=== PATIENT | female | born 1945 | race Caucasian/White ===

== ENCOUNTER 2021-08-23 14:43 | Emergency (ER) | payer MEDICARE, SELFPAY ==
--- NOTE | ~2021-08-23 | XR_ITS ---
EXAMINATION: [id number] INDICATION: Right rib pain after fall TECHNIQUE: A frontal view of the chest and 3 views of the right ribs were obtained. COMPARISON: 12/16/2019 FINDINGS: Chronic bilateral rib fractures are noted. The bones are osteopenic which limits sensitivit y for acute fracture. There is mild irregularity at the posterolateral aspects of the right fourth th rough sixth ribs. The lungs are free of acute opacities. There is no pleural effusion or pneumothorax . The heart size is normal. There is a moderate-sized hiatal hernia. Surgical clips in the right uppe r quadrant are likely from prior cholecystectomy. IMPRESSION: 1. Chronic bilateral rib fractures with possible acute fractures of the right fourth through sixth ri bs, sensitivity limited by osteopenia. Reviewed, dictated and finalized at location A. IMPRESSION: 1. Chronic bilateral rib fractures with possible acute fractures of the right f ourth through sixth ribs, sensitivity limited by osteopenia.
[2021-08-23 14:57] VITALS: BP 142/60; PULSE 66; RESP 20; TEMP 36.8; O2SAT 98
--- NOTE | 2021-08-23 15:13 | ED.FALL ---
HPI - Fall General Chief Complaint: Fall Stated Complaint: Fall Time Seen by Provider: 08/23/21 15:14 Source: patient, RN notes reviewed and old records reviewed Mode of arrival: ambulatory Limitations: no limitations History of Present Illness HPI Narrative: 76-year-old female who presents to [facility] with complaints of fall 9 days ago in her home hitting her right side on her dresser with pain to the right side of the chest and along lower rib area.Patient is on home oxygen therapy at 2-3L per nasal cannula and thinks she got her feet tangled in oxygen cord.Patient has history of osteoporosis and takes daily medication for disease process. She also has had prior fractures in her back she states and takes daily pain medication. Patient denies any increases in dyspnea, does have some faint crackles in lung bases, reports some increase in her pain to right rib area with deep breathing.Patient is using ice to area which she states helps her discomfort. Patient states that her pain is sharp rates pain 8/10. MD complaint: fall Onset (ago): day(s) (9) Related Data Home Medications Medication Instructions Recorded Confirmed albuterol sulfate 90 mcg INHALATION QID 12/16/19 08/23/21 dexlansoprazole [Dexilant] 60 mg PO DAILY 12/16/19 08/23/21 dicyclomine 20 mg PO QID 12/16/19 08/23/21 duloxetine 60 mg PO DAILY 12/16/19 08/23/21 lidocaine 3 patch TOPICAL DAILY 12/16/19 08/23/21 metoprolol tartrate 25 mg PO BID 12/16/19 08/23/21 promethazine 25 mg PO TID PRN 12/16/19 08/23/21 abaloparatide [Tymlos] 80 mcg SUBCUT DAILY 08/23/21 08/23/21 albuterol sulfate 2.5 mg CONTINUOUS NEBULIZATION Q4H 08/23/21 08/23/21 PRN carisoprodol 350 mg PO QID 08/23/21 08/23/21 cholecalciferol (vitamin D3) 50 mcg PO DAILY 08/23/21 08/23/21 ipratropium-albuterol 3 ml INHALATION Q4H PRN 08/23/21 08/23/21 lubiprostone [Amitiza] 24 mcg PO BID 08/23/21 08/23/21 oxycodone myristate [Xtampza ER] 108 mg PO Q12H 08/23/21 08/23/21 oxycodone-acetaminophen 2 tablet PO Q4H PRN 08/23/21 08/23/21 Allergies Allergy/AdvReac Type Severity Reaction Status Date / Time Penicillins Allergy Severe anaphylaxis Verified 08/23/21 15:17 Tetanus Vaccines and Toxoid Allergy Severe Unknown Unverified 08/23/21 15:17 pregabalin Allergy Intermediate Swelling Verified 08/23/21 15:17 Sulfa (Sulfonamide Allergy Intermediate Rash Verified 08/23/21 15:17 Antibiotics) ciprofloxacin Allergy Mild Rash Verified 08/23/21 15:17 doxycycline Allergy Mild Rash Verified 08/23/21 15:17 amitriptyline AdvReac Intermediate Hypertensio Verified 08/23/21 15:17 n nortriptyline AdvReac Intermediate Hypertensio Verified 08/23/21 15:17 n NSAIDS (Non-Steroidal AdvReac Intermediate Nausea and Verified 08/23/21 15:17 Anti-Inflamma Vomiting Review of Systems Review of Systems: CONSTITUTIONAL: Denies fever, chills, or sweats. EYES: Denies visual changes, redness, or discharge. ENT: Denies rhinorrhea, congestion, sore throat, or otalgia. CARDIOVASCULAR: Positive for right-sided pain chest pain,no palpitations, or edema. RESPIRATORY: Denies cough or acute dyspnea, reports increase pain with deep breathing. GASTROINTESTINAL: Denies abdominal pain, nausea, vomiting, or diarrhea. GENITOURINARY: Denies dysuria or hematuria. SKIN: Denies rash or itching. MUSCULOSKELETAL:Positive for chronic back pain, joint pain, or myalgia. NEUROLOGIC: Denies headache, numbness, or weakness. PSYCHIATRIC: Positive for history of anxiety or depression. All systems reviewed & are unremarkable except as noted in HPI and below PMFSH Past Medical History Medical History (Updated 08/25/21 @ 15:33 by Mercedes Chambers NP) Arthritis COPD (chronic obstructive pulmonary disease) Diabetes Fibromyalgia GERD (gastroesophageal reflux disease) Herniated disc Hypertension Kidney atrophy Migraines Osteopenia Pancreatitis Peripheral edema Peripheral neuropathy Surgical History Surgical History (Reviewed 08/23/21 @ 15:15
[2021-08-23 15:17] VITALS: BP 142/60; PULSE 66; RESP 20; TEMP 36.8; O2SAT 98
== END 2021-08-23 16:05 | disposition home or self-care (01) ==
PROVIDERS: Emergency Provider Registered Nurse; PCP Internal Medicine Geriatric Medicine
DX: S22.41XA Multiple fractures of ribs, right side, initial encounter for closed fracture (principal); W19.XXXA Unspecified fall, initial encounter; M19.90 Unspecified osteoarthritis, unspecified site; J44.9 Chronic obstructive pulmonary disease, unspecified; M79.7 Fibromyalgia; I10 Essential (primary) hypertension; E11.42 Type 2 diabetes mellitus with diabetic polyneuropathy; Z87.891 Personal history of nicotine dependence
CPT/HCPCS: 71101; 99213; G0463

== ENCOUNTER 2023-08-05 14:11 | Emergency (ER) | payer MEDICARE, MEDICAID, SELFPAY ==
[2023-08-05 14:24] VITALS: BP 121/46; PULSE 78; RESP 20; TEMP 37.1; O2SAT 98
--- NOTE | 2023-08-05 16:11 | ED.GENADULT ---
HPI - General Adult General Chief complaint: Skin/Abscess/Foreign Body Stated complaint: cat bite right forearm Source: patient Mode of arrival: ambulatory Limitations: no limitations History of Present Illness HPI narrative: Patient presents for evaluation of a cat bite to the right forearm. This occurred yesterday when her own cat bit her. She denies any fever, chills, nausea, vomiting, purulence from the affected area. She has some surrounding erythema. Reports minimal amount of pain present. She has multiple abx allergies and is also allergic to tetanus vaccine. She states she is borderline diabetic but BS are controlled with diet alone. She has an underlying history of COPD. She wears 3 L O2 per NC at home. Related Data Home Medications Medication Instructions Recorded Confirmed albuterol sulfate 90 mcg/actuation 90 mcg inhalation QID 12/16/19 08/05/23 breath activated powder inhaler,sensor dexlansoprazole 60 mg 60 mg PO DAILY 12/16/19 08/05/23 capsule,biphase delayed release (Dexilant) dicyclomine 20 mg tablet 20 mg PO QID 12/16/19 08/05/23 duloxetine 60 mg capsule,delayed 60 mg PO DAILY 12/16/19 08/05/23 release lidocaine 5 % topical patch 3 patch topical DAILY 12/16/19 08/05/23 metoprolol tartrate 25 mg tablet 25 mg PO BID 12/16/19 08/05/23 promethazine 25 mg tablet 25 mg PO TID PRN Nausea 12/16/19 08/05/23 abaloparatide (Tymlos) 80 mcg subcut DAILY 08/23/21 08/05/23 albuterol sulfate 2.5 mg/3 mL 2.5 mg continuous nebulization Q4H 08/23/21 08/05/23 (0.083 %) solution for nebulization PRN Shortness Of Breath Or Wheezing carisoprodol 350 mg tablet 350 mg PO QID 08/23/21 08/05/23 cholecalciferol (vitamin D3) 50 50 mcg PO DAILY 08/23/21 08/05/23 mcg (2,000 unit) capsule ipratropium 0.5 mg-albuterol 3 mg 3 ml inhalation Q4H PRN Shortness 08/23/21 08/05/23 (2.5 mg base)/3 mL nebulization Of Breath Or Wheezing soln lubiprostone 24 mcg capsule 24 mcg PO BID 08/23/21 08/05/23 (Amitiza) oxycodone myristate 36 mg capsule 108 mg PO Q12H 08/23/21 08/05/23 sprinkle extended release 12hr(DON'T CRUSH) (Xtampza ER) oxycodone-acetaminophen 10 mg-325 2 tablet PO Q4H PRN Pain 08/23/21 08/05/23 mg tablet Allergies Allergy/AdvReac Type Severity Reaction Status Date / Time Penicillins Allergy Severe anaphylaxis Verified 08/05/23 14:32 Tetanus Vaccines and Toxoid Allergy Severe Unknown Verified 08/05/23 14:32 pregabalin Allergy Intermediate Swelling Verified 08/05/23 14:32 Sulfa (Sulfonamide Allergy Intermediate Rash Verified 08/05/23 14:32 Antibiotics) ciprofloxacin Allergy Mild Rash Verified 08/05/23 14:32 pentoxifylline [From Trental] Allergy Unknown Verified 08/05/23 14:33 amitriptyline AdvReac Intermediate Hypertensio Verified 08/05/23 14:32 n nortriptyline AdvReac Intermediate Hypertensio Verified 08/05/23 14:32 n NSAIDS (Non-Steroidal AdvReac Intermediate Nausea and Verified 08/05/23 14:32 Anti-Inflamma Vomiting Review of Systems Review of Systems: CONSTITUTIONAL: Denies fever, chills, or sweats. EYES: Denies visual changes, redness, or discharge. ENT: Denies rhinorrhea, congestion, sore throat, or otalgia. CARDIOVASCULAR: Denies chest pain, palpitations, or edema. RESPIRATORY: Denies cough or dyspnea. GASTROINTESTINAL: Denies abdominal pain, nausea, vomiting, or diarrhea. GENITOURINARY: Denies dysuria or hematuria. SKIN: Reports cat bite to right forearm with surrounding redness. Denies rash or itching. MUSCULOSKELETAL: Denies back pain, joint pain, or myalgia. NEUROLOGIC: Denies headache, numbness, dizziness, or weakness. PSYCHIATRIC: Denies anxiety or depression. [facility] Past Medical History Medical History Arthritis COPD (chronic obstructive pulmonary disease) Diabetes Fibromyalgia GERD (gastroesophageal reflux disease) Herniated disc Hypertension Kidney atrophy Migraines Osteopenia Pancrea
== END 2023-08-05 16:15 | disposition home or self-care (01) ==
PROVIDERS: Emergency Provider Nurse Practitioner; PCP Internal Medicine Geriatric Medicine
DX: S51.851A Open bite of right forearm, initial encounter (principal); J44.9 Chronic obstructive pulmonary disease, unspecified; I10 Essential (primary) hypertension; Z87.891 Personal history of nicotine dependence; Z79.899 Other long term (current) drug therapy; Z79.891 Long term (current) use of opiate analgesic; W55.01XA Bitten by cat, initial encounter
CPT/HCPCS: 99213; G0463

== ENCOUNTER 2023-09-01 12:31 | Emergency (ER) | payer MEDICARE, SELFPAY ==
[2023-09-01 13:02] VITALS: BP 150/66; PULSE 72; RESP 18; TEMP 36.7; O2SAT 97
--- NOTE | 2023-09-01 13:50 | ED.GENADULT ---
HPI - General Adult General Chief complaint: Skin/Abscess/Foreign Body Stated complaint: cat bite right arm Source: patient Mode of arrival: ambulatory Limitations: no limitations History of Present Illness HPI narrative: Patient presents for evaluation of cat bites to bilateral forearms. Her cat bit her left and right arms yesterday. She now has redness surrounding the cat bites. She denies any fever, chills, nausea, vomiting, purulence from the affected puncture wounds. She is diabetic but states that she is controlled through diet alone. I saw her here last month for similar symptoms. She was treated with doxycycline and Flagyl as she has multiple drug allergies. She is not able to receive tetanus vaccine due to allergy. She is also concerned about 3 areas of redness and itching to the right upper arm that she believes are related to some type of insect bites. Related Data Home Medications Medication Instructions Recorded Confirmed albuterol sulfate 90 mcg/actuation 90 mcg inhalation QID 12/16/19 08/05/23 breath activated powder inhaler,sensor dicyclomine 20 mg tablet 20 mg PO QID 12/16/19 08/05/23 duloxetine 60 mg capsule,delayed 60 mg PO DAILY 12/16/19 08/05/23 release lidocaine 5 % topical patch 3 patch topical DAILY 12/16/19 08/05/23 metoprolol tartrate 25 mg tablet 25 mg PO BID 12/16/19 08/05/23 promethazine 25 mg tablet 25 mg PO TID PRN Nausea 12/16/19 08/05/23 abaloparatide (Tymlos) 80 mcg subcut DAILY 08/23/21 08/05/23 albuterol sulfate 2.5 mg/3 mL 2.5 mg continuous nebulization Q4H 08/23/21 08/05/23 (0.083 %) solution for nebulization PRN Shortness Of Breath Or Wheezing carisoprodol 350 mg tablet 350 mg PO QID 08/23/21 08/05/23 cholecalciferol (vitamin D3) 50 50 mcg PO DAILY 08/23/21 08/05/23 mcg (2,000 unit) capsule ipratropium 0.5 mg-albuterol 3 mg 3 ml inhalation Q4H PRN Shortness 08/23/21 08/05/23 (2.5 mg base)/3 mL nebulization Of Breath Or Wheezing soln lubiprostone 24 mcg capsule 24 mcg PO BID 08/23/21 08/05/23 (Amitiza) oxycodone myristate 36 mg capsule 108 mg PO Q12H 08/23/21 08/05/23 sprinkle extended release 12hr(DON'T CRUSH) (Xtampza ER) oxycodone-acetaminophen 10 mg-325 2 tablet PO Q4H PRN Pain 08/23/21 08/05/23 mg tablet abaloparatide (Tymlos) mcg subcut 09/01/23 abaloparatide (Tymlos) mcg subcut 09/01/23 cilostazol 50 mg tablet mg 09/01/23 clopidogrel 75 mg tablet mg 09/01/23 dexlansoprazole 60 mg mg 09/01/23 capsule,biphase delayed release (Dexilant) ergocalciferol (vitamin D2) 1,250 09/01/23 mcg (50,000 unit) capsule fluticasone fur. 100 mcg-umeclid inhalation 09/01/23 62.5 mcg-vilant 25 mcg inhalat.powder (Trelegy Ellipta) furosemide 20 mg tablet mg 09/01/23 isosorbide mononitrate 30 mg mg PO 09/01/23 tablet,extended release 24 hr nitroglycerin 0.4 mg sublingual mg 09/01/23 tablet oxycodone myristate 36 mg capsule mg 09/01/23 sprinkle extended release 12hr(DON'T CRUSH) (Xtampza ER) pantoprazole 40 mg tablet,delayed mg PO 09/01/23 release pentoxifylline 400 mg mg PO 09/01/23 tablet,extended release Allergies Allergy/AdvReac Type Severity Reaction Status Date / Time Penicillins Allergy Severe anaphylaxis Verified 09/01/23 12:55 Tetanus Vaccines and Toxoid Allergy Severe Unknown Verified 09/01/23 12:55 pregabalin Allergy Intermediate Swelling Verified 09/01/23 12:55 Sulfa (Sulfonamide Allergy Intermediate Rash Verified 09/01/23 12:55 Antibiotics) ciprofloxacin Allergy Mild Rash Verified 09/01/23 12:55 pentoxifylline [From Trental] Allergy Unknown Verified 09/01/23 12:55 amitriptyline AdvReac Intermediate Hypertensio Verified 09/01/23 12:55 n nortriptyline AdvReac Intermediate Hypertensio Verified 09/01/23 12:55 n NSAIDS (Non-Steroidal AdvReac Intermediate Nausea and Verified 09/01/23 12:55 Anti-Inflamma Vomiting Review of Systems Review of Systems: CONSTITUTIONAL: Denies fever, chills
== END 2023-09-01 13:55 | disposition home or self-care (01) ==
PROVIDERS: Emergency Provider Nurse Practitioner; PCP Internal Medicine Geriatric Medicine
DX: S51.832A Puncture wound without foreign body of left forearm, initial encounter (principal); S51.831A Puncture wound without foreign body of right forearm, initial encounter; W55.01XA Bitten by cat, initial encounter; L30.9 Dermatitis, unspecified; M19.90 Unspecified osteoarthritis, unspecified site; J44.9 Chronic obstructive pulmonary disease, unspecified; E11.42 Type 2 diabetes mellitus with diabetic polyneuropathy; K21.9 Gastro-esophageal reflux disease without esophagitis; I10 Essential (primary) hypertension; M85.80 Other specified disorders of bone density and structure, unspecified site; Z87.891 Personal history of nicotine dependence
CPT/HCPCS: 99213; G0463

== ENCOUNTER 2024-01-25 10:14 | Emergency (ER) | payer MEDICARE, MEDICAID, SELFPAY ==
[2024-01-25 10:25] VITALS: BP 140/55; PULSE 65; RESP 16; TEMP 37.1; O2SAT 100
--- NOTE | 2024-01-25 11:13 | ED.ANIMALBIT ---
HPI - Animal Bite General Chief Complaint: Animal Bite Stated Complaint: Cat Bite/Left Hand Time Seen by Provider: 01/25/24 11:13 Source: patient and RN notes reviewed Mode of arrival: ambulatory Limitations: dementia History of Present Illness HPI narrative: 78-year-old female presents with concern for cap bite to her left hand. Reports she was bit on Sunday. She reports purulent drainage, redness, swelling, tenderness to the dorsal hand. Denies decreased function of the hand. Denies general malaise or fever. MD complaint: animal bite Related Data Home Medications Medication Instructions Recorded Confirmed albuterol sulfate 90 mcg/actuation 90 mcg inhalation QID 12/16/19 01/25/24 breath activated powder inhaler,sensor dicyclomine 20 mg tablet 20 mg PO QID 12/16/19 01/25/24 duloxetine 60 mg capsule,delayed 60 mg PO DAILY 12/16/19 01/25/24 release lidocaine 5 % topical patch 3 patch topical DAILY 12/16/19 01/25/24 metoprolol tartrate 25 mg tablet 25 mg PO BID 12/16/19 01/25/24 promethazine 25 mg tablet 25 mg PO TID PRN Nausea 12/16/19 01/25/24 abaloparatide (Tymlos) 80 mcg subcut DAILY 08/23/21 01/25/24 albuterol sulfate 2.5 mg/3 mL 2.5 mg continuous nebulization Q4H 08/23/21 01/25/24 (0.083 %) solution for nebulization PRN Shortness Of Breath Or Wheezing carisoprodol 350 mg tablet 350 mg PO QID 08/23/21 01/25/24 cholecalciferol (vitamin D3) 50 50 mcg PO DAILY 08/23/21 01/25/24 mcg (2,000 unit) capsule ipratropium 0.5 mg-albuterol 3 mg 3 ml inhalation Q4H PRN Shortness 08/23/21 01/25/24 (2.5 mg base)/3 mL nebulization Of Breath Or Wheezing soln lubiprostone 24 mcg capsule 24 mcg PO BID 08/23/21 01/25/24 (Amitiza) oxycodone-acetaminophen 10 mg-325 See Rx Instructions .Route 08/23/21 01/25/24 mg tablet .COMPLEX PRN Pain cilostazol 50 mg tablet 50 mg PO DAILY 09/01/23 01/25/24 clopidogrel 75 mg tablet 75 mg PO DAILY 09/01/23 01/25/24 dexlansoprazole 60 mg 60 mg PO DAILY 09/01/23 01/25/24 capsule,biphase delayed release (Dexilant) fluticasone fur. 100 mcg-umeclid See Rx Instructions .Route .COMPLEX 09/01/23 01/25/24 62.5 mcg-vilant 25 mcg inhalat.powder (Trelegy Ellipta) furosemide 20 mg tablet 20 mg PO DAILY 09/01/23 01/25/24 isosorbide mononitrate 30 mg 30 mg PO DAILY 09/01/23 01/25/24 tablet,extended release 24 hr nitroglycerin 0.4 mg sublingual See Rx Instructions .Route .COMPLEX 09/01/23 01/25/24 tablet oxycodone myristate 36 mg capsule See Rx Instructions .Route .COMPLEX 09/01/23 01/25/24 sprinkle extended release 12hr(DON'T CRUSH) (Xtampza ER) pantoprazole 40 mg tablet,delayed 40 mg PO DAILY 09/01/23 01/25/24 release pentoxifylline 400 mg 400 mg PO DAILY 09/01/23 01/25/24 tablet,extended release Allergies Allergy/AdvReac Type Severity Reaction Status Date / Time Penicillins Allergy Severe anaphylaxis Verified 01/25/24 11:01 Tetanus Vaccines and Toxoid Allergy Severe Unknown Verified 01/25/24 11:01 pregabalin Allergy Intermediate Swelling Verified 01/25/24 11:01 Sulfa (Sulfonamide Allergy Intermediate Rash Verified 01/25/24 11:01 Antibiotics) ciprofloxacin Allergy Mild Rash Verified 01/25/24 11:01 pentoxifylline [From Trental] Allergy Unknown Verified 01/25/24 11:01 amitriptyline AdvReac Intermediate Hypertensio Verified 01/25/24 11:01 n nortriptyline AdvReac Intermediate Hypertensio Verified 01/25/24 11:01 n NSAIDS (Non-Steroidal AdvReac Intermediate Nausea and Verified 01/25/24 11:01 Anti-Inflamma Vomiting Review of Systems Review of Systems: CONSTITUTIONAL: Denies malaise, chills, sweats, or fever. SKIN: Reports redness, swelling, tenderness, purulent drainage to the dorsal left hand at the site of the cat bite. Denies vesicles, bullae, numbness, pain beyond proportion MUSCULOSKELETAL: Denies joint pain or myalgia. NEUROLOGIC: Denies headache. All systems reviewed & are unremarkable except as noted in HPI and below PMFSH Pas
== END 2024-01-25 11:30 | disposition home or self-care (01) ==
PROVIDERS: Emergency Provider Nurse Practitioner; PCP Internal Medicine Geriatric Medicine
DX: S61.402A Unspecified open wound of left hand, initial encounter (principal); W55.01XA Bitten by cat, initial encounter; Z87.891 Personal history of nicotine dependence; J44.9 Chronic obstructive pulmonary disease, unspecified; E11.42 Type 2 diabetes mellitus with diabetic polyneuropathy; M79.7 Fibromyalgia; K21.9 Gastro-esophageal reflux disease without esophagitis; I10 Essential (primary) hypertension; M85.80 Other specified disorders of bone density and structure, unspecified site; M19.90 Unspecified osteoarthritis, unspecified site
CPT/HCPCS: 99213; G0463

== ENCOUNTER 2024-03-03 13:51 | Emergency (ER) | payer MEDICARE, MEDICAID, SELFPAY ==
[2024-03-03 14:04] VITALS: BP 136/51; PULSE 103; RESP 20; TEMP 37.3; O2SAT 98
--- NOTE | 2024-03-03 14:10 | ED.ANIMALBIT ---
HPI - Animal Bite General Chief Complaint: Animal Bite Stated Complaint: Cat Bite/Right Hand Time Seen by Provider: 03/03/24 14:10 Source: patient, RN notes reviewed and old records reviewed Mode of arrival: ambulatory Limitations: no limitations History of Present Illness HPI narrative: 78 year old female presents to [facility] care with complaints of cat bite to her right hand that occurred yesterday evening. Patient reports that Cat's immunizations are up to date, is her pet cat which is a Siamese and is temperamental.Patient had previous cat bite on 01/25/2024 and did receive tetanus update at that time. Patient has 1.2 linear wound to dorsal aspect of right hand near upper thumb region with some mild redness around wound with no drainage. MD complaint: animal bite Onset (ago): day(s) (day 2 of symptoms) Animal: cat Description of animal: household pet Mechanism: bite Location: other (dorsal right hand) Severity scale (1-10): 3 Treatments prior to arrival: other (cleansed with soap and water) Related Data Home Medications Medication Instructions Recorded Confirmed albuterol sulfate 90 mcg/actuation 90 mcg inhalation QID 12/16/19 01/25/24 breath activated powder inhaler,sensor dicyclomine 20 mg tablet 20 mg PO QID 12/16/19 01/25/24 duloxetine 60 mg capsule,delayed 60 mg PO DAILY 12/16/19 01/25/24 release lidocaine 5 % topical patch 3 patch topical DAILY 12/16/19 01/25/24 metoprolol tartrate 25 mg tablet 25 mg PO BID 12/16/19 01/25/24 promethazine 25 mg tablet 25 mg PO TID PRN Nausea 12/16/19 01/25/24 abaloparatide (Tymlos) 80 mcg subcut DAILY 08/23/21 01/25/24 albuterol sulfate 2.5 mg/3 mL 2.5 mg continuous nebulization Q4H 08/23/21 01/25/24 (0.083 %) solution for nebulization PRN Shortness Of Breath Or Wheezing carisoprodol 350 mg tablet 350 mg PO QID 08/23/21 01/25/24 cholecalciferol (vitamin D3) 50 50 mcg PO DAILY 08/23/21 01/25/24 mcg (2,000 unit) capsule ipratropium 0.5 mg-albuterol 3 mg 3 ml inhalation Q4H PRN Shortness 08/23/21 01/25/24 (2.5 mg base)/3 mL nebulization Of Breath Or Wheezing soln lubiprostone 24 mcg capsule 24 mcg PO BID 08/23/21 01/25/24 (Amitiza) oxycodone-acetaminophen 10 mg-325 See Rx Instructions .Route 08/23/21 01/25/24 mg tablet .COMPLEX PRN Pain cilostazol 50 mg tablet 50 mg PO DAILY 09/01/23 01/25/24 clopidogrel 75 mg tablet 75 mg PO DAILY 09/01/23 01/25/24 dexlansoprazole 60 mg 60 mg PO DAILY 09/01/23 01/25/24 capsule,biphase delayed release (Dexilant) fluticasone fur. 100 mcg-umeclid See Rx Instructions .Route .COMPLEX 09/01/23 01/25/24 62.5 mcg-vilant 25 mcg inhalat.powder (Trelegy Ellipta) furosemide 20 mg tablet 20 mg PO DAILY 09/01/23 01/25/24 isosorbide mononitrate 30 mg 30 mg PO DAILY 09/01/23 01/25/24 tablet,extended release 24 hr nitroglycerin 0.4 mg sublingual See Rx Instructions .Route .COMPLEX 09/01/23 01/25/24 tablet oxycodone myristate 36 mg capsule See Rx Instructions .Route .COMPLEX 09/01/23 01/25/24 sprinkle extended release 12hr(DON'T CRUSH) (Xtampza ER) pantoprazole 40 mg tablet,delayed 40 mg PO DAILY 09/01/23 01/25/24 release pentoxifylline 400 mg 400 mg PO DAILY 09/01/23 01/25/24 tablet,extended release Allergies Allergy/AdvReac Type Severity Reaction Status Date / Time Penicillins Allergy Severe anaphylaxis Verified 01/25/24 11:01 Tetanus Vaccines and Toxoid Allergy Severe Unknown Verified 01/25/24 11:01 pregabalin Allergy Intermediate Swelling Verified 01/25/24 11:01 Sulfa (Sulfonamide Allergy Intermediate Rash Verified 01/25/24 11:01 Antibiotics) ciprofloxacin Allergy Mild Rash Verified 01/25/24 11:01 pentoxifylline [From Trental] Allergy Unknown Verified 01/25/24 11:01 amitriptyline AdvReac Intermediate Hypertensio Verified 01/25/24 11:01 n nortriptyline AdvReac Intermediate Hypertensio Verified 01/25/24 11:01 n NSAIDS (Non-Steroidal AdvReac Intermediate Nausea and Verified 01/25/24 11:01 Anti-Inflamma
== END 2024-03-03 14:48 | disposition home or self-care (01) ==
PROVIDERS: Emergency Provider Registered Nurse; PCP Internal Medicine Geriatric Medicine
DX: S61.451A Open bite of right hand, initial encounter (principal); W55.01XA Bitten by cat, initial encounter; Z87.891 Personal history of nicotine dependence; M19.90 Unspecified osteoarthritis, unspecified site; J44.9 Chronic obstructive pulmonary disease, unspecified; E11.9 Type 2 diabetes mellitus without complications; M79.7 Fibromyalgia; K21.9 Gastro-esophageal reflux disease without esophagitis; I10 Essential (primary) hypertension; M81.0 Age-related osteoporosis without current pathological fracture; G62.9 Polyneuropathy, unspecified
CPT/HCPCS: 99213; G0463

== ENCOUNTER 2024-03-11 12:57 | Emergency (ER) | payer MEDICARE, MEDICAID, SELFPAY ==
[2024-03-11 13:13] VITALS: BP 143/75; PULSE 87; RESP 20; TEMP 37.1; O2SAT 96
--- NOTE | 2024-03-11 13:26 | ED.ANIMALBIT ---
HPI - Animal Bite General Chief Complaint: Animal Bite Stated Complaint: Cat bite right leg lower Time Seen by Provider: 03/11/24 13:25 Source: patient, RN notes reviewed and old records reviewed Mode of arrival: ambulatory Limitations: no limitations History of Present Illness HPI narrative: 78 year old female accompanied by health care worker presents per wheelchair with complaints of cat bite to her right lower leg from her cat. Patient just had cat bite to her right hand 10 days ago and it has healed well. Patient has 1 small puncture wound to her right lower leg in calf area with scratch. Patient reports that she has decided to get rid of the cat since she has been biting her. Patient reports that she did have quite a bit of bleeding initially because she is on Plavix, no active bleeding noted at this time. Tetanus shot is up to date. MD complaint: animal bite (cat bite) Onset (ago): day(s) (today) Animal: cat Description of animal: household pet Location: other (right calf area) Severity scale (1-10): 6 Treatments prior to arrival: wound dressing(s) and other (cleansed wound with soap and water) Related Data Home Medications Medication Instructions Recorded Confirmed albuterol sulfate 90 mcg/actuation 90 mcg inhalation QID 12/16/19 03/11/24 breath activated powder inhaler,sensor dicyclomine 20 mg tablet 20 mg PO QID 12/16/19 03/11/24 lidocaine 5 % topical patch 3 patch topical DAILY 12/16/19 03/11/24 albuterol sulfate 2.5 mg/3 mL 2.5 mg continuous nebulization Q4H 08/23/21 03/11/24 (0.083 %) solution for nebulization PRN Shortness Of Breath Or Wheezing carisoprodol 350 mg tablet 350 mg PO QID 08/23/21 03/11/24 cholecalciferol (vitamin D3) 50 50 mcg PO DAILY 08/23/21 03/11/24 mcg (2,000 unit) capsule ipratropium 0.5 mg-albuterol 3 mg 3 ml inhalation Q4H PRN Shortness 08/23/21 03/11/24 (2.5 mg base)/3 mL nebulization Of Breath Or Wheezing soln lubiprostone 24 mcg capsule 24 mcg PO BID 08/23/21 03/11/24 (Amitiza) oxycodone-acetaminophen 10 mg-325 1 tablet PO QID PRN Pain 08/23/21 03/11/24 mg tablet cilostazol 50 mg tablet 50 mg PO DAILY 09/01/23 03/11/24 clopidogrel 75 mg tablet 75 mg PO DAILY 09/01/23 03/11/24 dexlansoprazole 60 mg 60 mg PO DAILY 09/01/23 03/11/24 capsule,biphase delayed release (Dexilant) fluticasone fur. 100 mcg-umeclid See Rx Instructions .Route .COMPLEX 09/01/23 03/11/24 62.5 mcg-vilant 25 mcg inhalat.powder (Trelegy Ellipta) furosemide 20 mg tablet 20 mg PO DAILY 09/01/23 03/11/24 nitroglycerin 0.4 mg sublingual See Rx Instructions .Route .COMPLEX 09/01/23 03/11/24 tablet oxycodone myristate 36 mg capsule 36 mg PO DAILY 09/01/23 03/11/24 sprinkle extended release 12hr(DON'T CRUSH) (Xtampza ER) abaloparatide (Tymlos) 80 mcg subcut MONTHLY 03/11/24 03/11/24 cyanocobalamin (vitamin B-12) 1,000 mcg IM MONTHLY 03/11/24 03/11/24 1,000 mcg/mL injection solution duloxetine 30 mg capsule,delayed 30 mg PO BID 03/11/24 03/11/24 release empagliflozin 10 mg tablet 10 mg PO DAILY 03/11/24 03/11/24 (Jardiance) Allergies Allergy/AdvReac Type Severity Reaction Status Date / Time Penicillins Allergy Severe anaphylaxis Verified 03/11/24 13:10 Tetanus Vaccines and Toxoid Allergy Severe Unknown Verified 03/11/24 13:10 pregabalin Allergy Intermediate Swelling Verified 03/11/24 13:10 Sulfa (Sulfonamide Allergy Intermediate Rash Verified 03/11/24 13:10 Antibiotics) ciprofloxacin Allergy Mild Rash Verified 03/11/24 13:10 pentoxifylline [From Trental] Allergy Unknown Verified 03/11/24 13:10 amitriptyline AdvReac Intermediate Hypertensio Verified 03/11/24 13:10 n nortriptyline AdvReac Intermediate Hypertensio Verified 03/11/24 13:10 n NSAIDS (Non-Steroidal AdvReac Intermediate Nausea and Verified 03/11/24 13:10 Anti-Inflamma Vomiting Review of Systems Review of Systems: CONSTITUTIONAL: Denies fever, chills, or sweats. CARDIOVASCULAR: Denies chest
[2024-03-11 13:29] VITALS: BP 143/75; PULSE 87; RESP 20; TEMP 37.1; O2SAT 96
== END 2024-03-11 13:55 | disposition home or self-care (01) ==
PROVIDERS: Emergency Provider Registered Nurse; PCP Internal Medicine Geriatric Medicine
DX: S81.831A Puncture wound without foreign body, right lower leg, initial encounter (principal); W55.01XA Bitten by cat, initial encounter; Z87.891 Personal history of nicotine dependence; M19.90 Unspecified osteoarthritis, unspecified site; J44.9 Chronic obstructive pulmonary disease, unspecified; E11.9 Type 2 diabetes mellitus without complications; M79.7 Fibromyalgia; K21.9 Gastro-esophageal reflux disease without esophagitis; I10 Essential (primary) hypertension; M85.80 Other specified disorders of bone density and structure, unspecified site; G62.9 Polyneuropathy, unspecified; Z79.01 Long term (current) use of anticoagulants
CPT/HCPCS: 99213; G0463

== ENCOUNTER 2024-04-04 13:22 | Emergency (ER) | payer MEDICARE, MEDICAID, SELFPAY ==
[2024-04-04 13:41] VITALS: BP 147/52; PULSE 72; RESP 18; TEMP 37.2; O2SAT 100
--- NOTE | 2024-04-04 14:01 | ED.WOUNDLAC ---
HPI - Wound/Laceration General Chief Complaint: Wound/Laceration Stated Complaint: Cat bite Time Seen by Provider: 04/04/24 13:55 Source: patient, RN notes reviewed and old records reviewed Mode of arrival: ambulatory Limitations: no limitations History of Present Illness HPI narrative: 78-year-old female who presents to [facility] accompanied by daughter with patient having cat bites to her right forearm X2 which happened last night around 2300. Patient has cleansed wounds with antibacterial soap and applied some triple antibiotic ointment and telfa dressing and coban wrap. Patient reports that this morning she noticed some yellowish drainage to the most distal puncture wound and some redness and heat to her arm. Patient has had multiple bites from this cat which is her personal cat and had stated that she was getting it a new home at last incident. Patient reports no fevers, chills or sweats. Onset (ago): day(s) (Last night around 2300) Location: other (right forearm) Patient tetanus UTD: Yes Treatments prior to arrival: other (wound cleansed and dressed) Related Data Home Medications Medication Instructions Recorded Confirmed albuterol sulfate 90 mcg/actuation 90 mcg inhalation QID 12/16/19 03/11/24 breath activated powder inhaler,sensor dicyclomine 20 mg tablet 20 mg PO QID 12/16/19 03/11/24 lidocaine 5 % topical patch 3 patch topical DAILY 12/16/19 03/11/24 albuterol sulfate 2.5 mg/3 mL 2.5 mg continuous nebulization Q4H 08/23/21 03/11/24 (0.083 %) solution for nebulization PRN Shortness Of Breath Or Wheezing carisoprodol 350 mg tablet 350 mg PO QID 08/23/21 03/11/24 cholecalciferol (vitamin D3) 50 50 mcg PO DAILY 08/23/21 03/11/24 mcg (2,000 unit) capsule ipratropium 0.5 mg-albuterol 3 mg 3 ml inhalation Q4H PRN Shortness 08/23/21 03/11/24 (2.5 mg base)/3 mL nebulization Of Breath Or Wheezing soln lubiprostone 24 mcg capsule 24 mcg PO BID 08/23/21 03/11/24 (Amitiza) cilostazol 50 mg tablet 50 mg PO DAILY 09/01/23 03/11/24 clopidogrel 75 mg tablet 75 mg PO DAILY 09/01/23 03/11/24 dexlansoprazole 60 mg 60 mg PO DAILY 09/01/23 03/11/24 capsule,biphase delayed release (Dexilant) fluticasone fur. 100 mcg-umeclid See Rx Instructions .Route .COMPLEX 09/01/23 03/11/24 62.5 mcg-vilant 25 mcg inhalat.powder (Trelegy Ellipta) nitroglycerin 0.4 mg sublingual See Rx Instructions .Route .COMPLEX 09/01/23 03/11/24 tablet oxycodone myristate 36 mg capsule 36 mg PO DAILY 09/01/23 03/11/24 sprinkle extended release 12hr(DON'T CRUSH) (Xtampza ER) abaloparatide (Tymlos) 80 mcg subcut MONTHLY 03/11/24 03/11/24 cyanocobalamin (vitamin B-12) 1,000 mcg IM MONTHLY 03/11/24 03/11/24 1,000 mcg/mL injection solution duloxetine 30 mg capsule,delayed 30 mg PO BID 03/11/24 03/11/24 release empagliflozin 10 mg tablet 10 mg PO DAILY 03/11/24 03/11/24 (Jardiance) Allergies Allergy/AdvReac Type Severity Reaction Status Date / Time Penicillins Allergy Severe anaphylaxis Verified 03/11/24 13:10 Tetanus Vaccines and Toxoid Allergy Severe Unknown Verified 03/11/24 13:10 pregabalin Allergy Intermediate Swelling Verified 03/11/24 13:10 Sulfa (Sulfonamide Allergy Intermediate Rash Verified 03/11/24 13:10 Antibiotics) ciprofloxacin Allergy Mild Rash Verified 03/11/24 13:10 pentoxifylline [From Trental] Allergy Unknown Verified 03/11/24 13:10 amitriptyline AdvReac Intermediate Hypertensio Verified 03/11/24 13:10 n nortriptyline AdvReac Intermediate Hypertensio Verified 03/11/24 13:10 n NSAIDS (Non-Steroidal AdvReac Intermediate Nausea and Verified 03/11/24 13:10 Anti-Inflamma Vomiting Review of Systems Review of Systems: CONSTITUTIONAL: Denies fever, chills, or sweats. CARDIOVASCULAR: Denies chest pain, palpitations, or edema. RESPIRATORY: Denies cough or dyspnea.is on home oxygen therapy GASTROINTESTINAL: Denies abdominal pain, nausea, vomiting SKIN: Reports redness and warmth to dista
== END 2024-04-04 14:23 | disposition home or self-care (01) ==
PROVIDERS: Emergency Provider Registered Nurse; PCP Internal Medicine Geriatric Medicine
DX: S51.831A Puncture wound without foreign body of right forearm, initial encounter (principal); W55.01XA Bitten by cat, initial encounter; Z87.891 Personal history of nicotine dependence; M19.90 Unspecified osteoarthritis, unspecified site; J44.9 Chronic obstructive pulmonary disease, unspecified; E11.42 Type 2 diabetes mellitus with diabetic polyneuropathy; M79.7 Fibromyalgia; K21.9 Gastro-esophageal reflux disease without esophagitis; M85.80 Other specified disorders of bone density and structure, unspecified site
CPT/HCPCS: 99213; G0463

== ENCOUNTER 2024-05-01 14:28 | Emergency (ER) | payer MEDICARE, MEDICAID, SELFPAY ==
[2024-05-01 14:42] VITALS: BP 117/59; PULSE 92; RESP 20; TEMP 37.2; O2SAT 96
--- NOTE | 2024-05-01 14:49 | ED.GENADULT ---
HPI - General Adult General Chief complaint: Back Pain/Injury Stated complaint: Back pain with open wound Time Seen by Provider: 05/01/24 14:52 Source: patient Mode of arrival: ambulatory Limitations: no limitations History of Present Illness HPI narrative: 78-year-old female with history of chronic back pain and COPD presented for complaint of an abrasion to the mid upper back sustained last night when she slid out of bed. She states she was sitting on the edge of the bed when her mattress shifted and she foot to the floor. She denies any neck pain. Patient presented with a caregiver who applied a dressing over the wound. Denies any other complaints or concerns at this time. Related Data Home Medications Medication Instructions Recorded Confirmed albuterol sulfate 90 mcg/actuation 90 mcg inhalation QID 12/16/19 05/01/24 breath activated powder inhaler,sensor dicyclomine 20 mg tablet 20 mg PO QID 12/16/19 05/01/24 lidocaine 5 % topical patch 3 patch topical DAILY 12/16/19 05/01/24 albuterol sulfate 2.5 mg/3 mL 2.5 mg continuous nebulization Q4H 08/23/21 05/01/24 (0.083 %) solution for nebulization PRN Shortness Of Breath Or Wheezing carisoprodol 350 mg tablet 350 mg PO QID 08/23/21 05/01/24 cholecalciferol (vitamin D3) 50 50 mcg PO DAILY 08/23/21 05/01/24 mcg (2,000 unit) capsule ipratropium 0.5 mg-albuterol 3 mg 3 ml inhalation Q4H PRN Shortness 08/23/21 05/01/24 (2.5 mg base)/3 mL nebulization Of Breath Or Wheezing soln lubiprostone 24 mcg capsule 24 mcg PO BID 08/23/21 05/01/24 (Amitiza) cilostazol 50 mg tablet 50 mg PO DAILY 09/01/23 05/01/24 clopidogrel 75 mg tablet 75 mg PO DAILY 09/01/23 05/01/24 dexlansoprazole 60 mg 60 mg PO DAILY 09/01/23 05/01/24 capsule,biphase delayed release (Dexilant) fluticasone fur. 100 mcg-umeclid See Rx Instructions .Route .COMPLEX 09/01/23 05/01/24 62.5 mcg-vilant 25 mcg inhalat.powder (Trelegy Ellipta) nitroglycerin 0.4 mg sublingual See Rx Instructions .Route .COMPLEX 09/01/23 05/01/24 tablet oxycodone myristate 36 mg capsule 36 mg PO DAILY 09/01/23 05/01/24 sprinkle extended release 12hr(DON'T CRUSH) (Xtampza ER) abaloparatide (Tymlos) 80 mcg subcut MONTHLY 03/11/24 05/01/24 cyanocobalamin (vitamin B-12) 1,000 mcg IM MONTHLY 03/11/24 05/01/24 1,000 mcg/mL injection solution duloxetine 30 mg capsule,delayed 30 mg PO BID 03/11/24 05/01/24 release empagliflozin 10 mg tablet 10 mg PO DAILY 03/11/24 05/01/24 (Jardiance) Allergies Allergy/AdvReac Type Severity Reaction Status Date / Time Penicillins Allergy Severe anaphylaxis Verified 05/01/24 14:58 Tetanus Vaccines and Toxoid Allergy Severe Unknown Verified 05/01/24 14:58 pregabalin Allergy Intermediate Swelling Verified 05/01/24 14:58 Sulfa (Sulfonamide Allergy Intermediate Rash Verified 05/01/24 14:58 Antibiotics) ciprofloxacin Allergy Mild Rash Verified 05/01/24 14:58 pentoxifylline [From Trental] Allergy Unknown Verified 05/01/24 14:58 amitriptyline AdvReac Intermediate Hypertensio Verified 05/01/24 14:58 n nortriptyline AdvReac Intermediate Hypertensio Verified 05/01/24 14:58 n NSAIDS (Non-Steroidal AdvReac Intermediate Nausea and Verified 05/01/24 14:58 Anti-Inflamma Vomiting Review of Systems Review of Systems: CONSTITUTIONAL: Denies body aches, fever, chills, or sweats. EYES: Denies visual changes, redness, or discharge. ENT: Denies rhinorrhea, congestion CARDIOVASCULAR: Denies chest pain, palpitations, or edema. RESPIRATORY: Denies cough or dyspnea. GASTROINTESTINAL: Denies abdominal pain, nausea, vomiting, or diarrhea. SKIN: reports skin abrasion to mid upper back MUSCULOSKELETAL: Denies back pain, joint pain, or myalgia. NEUROLOGIC: Denies headache, numbness, tingling, or weakness. [facility] Past Medical History Medical History Arthritis Cat bite Chronic back pain COPD (chronic obstr
== END 2024-05-01 15:07 | disposition home or self-care (01) ==
PROVIDERS: Emergency Provider Nurse Practitioner Family; PCP Internal Medicine Geriatric Medicine
DX: S20.419A Abrasion of unspecified back wall of thorax, initial encounter (principal); W06.XXXA Fall from bed, initial encounter; Z87.891 Personal history of nicotine dependence; J44.9 Chronic obstructive pulmonary disease, unspecified; E11.42 Type 2 diabetes mellitus with diabetic polyneuropathy; M79.7 Fibromyalgia; K21.9 Gastro-esophageal reflux disease without esophagitis; I10 Essential (primary) hypertension; M85.80 Other specified disorders of bone density and structure, unspecified site
CPT/HCPCS: 99212; G0463

== ENCOUNTER 2025-03-10 15:43 | Emergency (ER) | payer MEDICARE, MEDICAID, SELFPAY ==
[2025-03-10 15:49] VITALS: BP 149/50; PULSE 71; RESP 20; TEMP 36.6; O2SAT 98
--- NOTE | 2025-03-10 16:10 | ED.SKABFB ---
HPI - Skin/Abscess/Foreign Bdy General Chief complaint: Skin/Abscess/Foreign Body Stated complaint: bug bite Time Seen by Provider: 03/10/25 16:11 Source: patient, RN notes reviewed and old records reviewed Mode of arrival: wheelchair Limitations: no limitations History of Present Illness HPI narrative: 79 year old female who presents to [facility] care with complaints of tick bite to her left lower leg which occurred about 2 weeks ago.Patient's caregiver reports that she removed a tick from patient's left lower leg about 2 weeks ago and now patient has tender red area to the left lower outer leg. Patient has purplish red irregular circular area to left lower leg which is tender to palpation, area measures 3.5cm X 2.5cm. Area marked with skin marker. Patient reports that she had gone to shelters in area to get a new cat assumes that is where she encountered the tick. MD complaint: rash and other (tick bite) Onset (ago): week(s) (tick removed 2 weeks ago) Tetanus up to date: yes Severity scale (1-10): 5 Quality: aching Treatments prior to arrival: other (is on pain medication for chronic pain to back) Related Data Home Medications ?Medication ?Instructions ?Recorded ?Confirmed ?Last Taken ?Type albuterol sulfate 90 mcg/actuation 90 mcg inhalation QID 12/16/19 05/01/24 Unknown History breath activated powder inhaler,sensor dicyclomine 20 mg tablet 20 mg PO QID 12/16/19 05/01/24 Unknown History lidocaine 5 % topical patch 3 patch topical DAILY 12/16/19 05/01/24 Unknown History albuterol sulfate 2.5 mg/3 mL 2.5 mg continuous nebulization Q4H 08/23/21 05/01/24 Unknown History (0.083 %) solution for nebulization PRN Shortness Of Breath Or Wheezing carisoprodol 350 mg tablet 350 mg PO QID 08/23/21 05/01/24 Unknown History cholecalciferol (vitamin D3) 50 50 mcg PO DAILY 08/23/21 05/01/24 Unknown History mcg (2,000 unit) capsule cilostazol 50 mg tablet 50 mg PO DAILY 09/01/23 05/01/24 Unknown History clopidogrel 75 mg tablet 75 mg PO DAILY 09/01/23 05/01/24 Unknown History dexlansoprazole 60 mg 60 mg PO DAILY 09/01/23 05/01/24 Unknown History capsule,biphase delayed release (Dexilant) fluticasone fur. 100 mcg-umeclid See Rx Instructions .Route .COMPLEX 09/01/23 05/01/24 Unknown History 62.5 mcg-vilant 25 mcg inhalat.powder (Trelegy Ellipta) nitroglycerin 0.4 mg sublingual See Rx Instructions .Route .COMPLEX 09/01/23 05/01/24 Unknown History tablet oxycodone myristate 36 mg capsule 36 mg PO DAILY 09/01/23 05/01/24 Unknown History sprinkle extended release 12hr(DON'T CRUSH) (Xtampza ER) abaloparatide (Tymlos) 80 mcg subcut MONTHLY 03/11/24 05/01/24 Unknown History cyanocobalamin (vitamin B-12) 1,000 mcg IM MONTHLY 03/11/24 05/01/24 Unknown History 1,000 mcg/mL injection solution duloxetine 30 mg capsule,delayed 30 mg PO BID 03/11/24 05/01/24 Unknown History release empagliflozin 10 mg tablet 10 mg PO DAILY 03/11/24 05/01/24 Unknown History (Jardiance) Allergies Allergy/AdvReac Type Severity Reaction Status Date / Time Penicillins Allergy Severe anaphylaxis Verified 03/10/25 16:02 Tetanus Vaccines and Toxoid Allergy Severe Unknown Verified 03/10/25 16:02 pregabalin Allergy Intermediate Swelling Verified 03/10/25 16:02 Sulfa (Sulfonamide Allergy Intermediate Rash Verified 03/10/25 16:02 Antibiotics) ciprofloxacin Allergy Mild Rash Verified 03/10/25 16:02 atorvastatin (From Lipitor) Allergy Unknown Unknown Verified 03/10/25 16:02 gabapentin Allergy Unknown Unknown Verified 03/10/25 16:02 Horse/Equine Containing Allergy Unknown Unknown Verified 03/10/25 16:02 Products tetracycline Allergy Unknown Unknown Verified 03/10/25 16:02 tolterodine Allergy Unknown Unknown Verified 03/10/25 16:02 tuberculin, purified protein Allergy Unknown Unknown Verified 03/10/25 16:02 deriva pentoxifylline (From Trental) Allergy Unknown Verified 03/10/25 16:02 amitriptyline AdvReac Intermediate Hypertensio Verified 03/10/25 16:02 n nortriptyline AdvReac Intermediate Hypertensio Verified 03/10/25 16:02 n NSAIDS (Non-Steroidal AdvReac Intermediate Nausea and Verified 03/10/25 16:02 Anti-Inflamma Vomiting Review of Systems Review of Systems: CONSTITUTIONAL: Denies fever, chills, or sweats. CARDIOVASCULAR: Denies chest pain, palpitations, or edema. RESPIRATORY: Denies cough or dyspnea. SKIN: Reports painful red circular lesion on outer left leg from tick bite measures 3.5cm X2.5 cm MUSCULOSKELETAL: Denies joint pain or myalgia. NEUROLOGIC: Denies headache, numbness, or weakness. All systems reviewed & are unremarkable except as noted in HPI and below PMFSH Past Medical History Medical History Chronic back pain Cat bite Osteopenia Kidney atrophy Fibromyalgia Pancreatitis COPD (chronic obstructive pulmonary disease) Herniated disc GERD (gastroesophageal reflux disease) Peripheral edema Arthritis Diabetes Migraines Hypertension Peripheral neuropathy Surgical History Surgical History History of ERCP x2 Hx of tubal ligation History of cholecystectomy Family History Family History Father Family history non-contributory Social History Social History Smoking status: Former smoker Tobacco type: cigarettes Additional smoking assessment comments: Quit 2008 Alcohol intake: former Alcohol use details: social Substance use: current Other substance usage details: takes oxycodone for chronic back pain Additional living arrangements comments: with sister Occupation/Education: retired Gender identity (if verbalized by the patient): Female Comments At time of signature, agree with nursing past medical, surgical, social and family history. There is no relevant family history pertinent to the presenting complaint Exam Narrative: GENERAL:chronic ill -appearing, frail fair-nourished, and in no acute distress. HEAD: Normocephalic, atraumatic. EYES: PERRLA, conjunctivae clear, and EOMI. ENT: Mucous membranes moist. Oropharynx without edema, erythema or lesions. NECK: Supple. No lymphadenopathy CHEST: Decreased to auscultation. No respiratory distress.is on oxygen therapy at 2-3 Liters per nasal cannula SAO2 98% HEART: Regular rate and rhythm. SKIN: Warm, dry.? 3.5cm X 2.5cm red purplish irregular circular wound to the outer area of left leg tender to palpation, area marked with skin marker NEURO:? Alert and oriented x3. PSYCH: Normal mood and affect Course Course Emergency Course: Patient is aware of diagnosis, understands and agrees to treatment plan.? Anticipatory guidance given.? Patient agrees to follow-up as directed and is aware of reasons to seek care at the emergency department. Portions of this record may have been created with voice recognition software Level of Care: Express Care Visit Vital Signs Vital signs: Vital Signs Temperature 36.6 C 03/10/25 15:49 Pulse Rate 71 03/10/25 15:49 Respiratory Rate 20 03/10/25 15:49 Blood Pressure 149/50 H 03/10/25 15:49 Pulse Oximetry 98 03/10/25 15:49 Oxygen Delivery Room Air 03/10/25 15:49 Temperature 36.6 C 03/10/25 15:49 Pulse Rate 71 03/10/25 15:49 Respiratory Rate 20 03/10/25 15:49 Blood Pressure 149/50 H 03/10/25 15:49 Pulse Oximetry 98 03/10/25 15:49 Oxygen Delivery Room Air 03/10/25 15:49 Reviewed MDM - Skin/Abscess/Foreign Bdy MDM Narrative Medical decision making narrative: Does not appear at this time to be erythema multiforme, bullous, SJS, TEN; no evidence at this time to suggest RMSF, endocarditis or Lyme disease; patient looks well, nontoxic and is tolerating oral intake; no neurologic signs or symptoms; no headache, photophobia or neck pain; afebrile; appropriate for initial outpatient treatment; discussed the importance of follow-up, patient agrees; question, viral exanthema, contact dermatitis, allergic dermatitis, eczema, urticaria, [ xx ]. No soft palate or uvula edema, no tongue, lip edema or other mucosal involvement, no respiratory compromise, no stridor, no wheezing, no wheezing, no history of syncope, no hypotension, no nausea, vomiting, or diarrhea.? Instructed patient to go to nearest ER immediately for any worsening symptoms including but not limited to: fever, spreading rash, pain, sore throat, headache, dizziness, chest pain, trouble breathing, or any symptoms concerning to the patient. Differential Diagnosis Differential diagnosis: Likely cellulitis, insect bites, contact dermatitis and other (wound left lower leg, tick bite) Medical Records Attestation: I reviewed the patient's medical records. Critical Care Time Critical Care Time Critical Care Time: No Discharge Plan Discharge Clinical Impression: Tick bite Qualifiers: Encounter type: initial encounter Site of tick bite: lower leg Laterality: left Qualified Code(s): S80.862A - Insect bite (nonvenomous), left lower leg, initial encounter; W57.XXXA - Bitten or stung by nonvenomous insect and other nonvenomous arthropods, initial encounter Leg wound, left Qualifiers: Encounter type: initial encounter Qualified Code(s): S81.802A - Unspecified open wound, left lower leg, initial encounter Patient Disposition: Home Condition: Stable Instructions: Antibiotic Form, Tick Bite (ED) Additional Instructions: Keep area clean and may use mupirocin ointment to area watch for increasing infection--redness, swelling, drainage Tylenol for any fever pain follow up with PCP in 7-10 days for a wound check recheck if develop fever, chills, increasing symptom Go to the ER if your symptoms become worse of if ANY new symptoms develop Doxycycline 100 mg b.i.d. for 10 days If your symptoms persist, change or worsen significantly before you can contact your personal physician then please, without delay, go to the emergency department for further evaluation. Follow-up with PCP in 7-10 days or sooner if needed Follow up with PCP soon in regards to your blood pressure which is elevated above threshold for referral. Blood pressure above 120/80 may indicate pre-hypertension. 149/50 Patient Language: Maori Prescriptions: New doxycycline monohydrate 100 mg capsule 100 mg PO BID Qty: 20 0RF No Action cyanocobalamin (vitamin B-12) 1,000 mcg/mL solution 1,000 mcg IM MONTHLY duloxetine 30 mg capsule,delayed release(DR/EC) 30 mg PO BID Tymlos 80 mcg (3,120 mcg/1.56 mL) pen injector 80 mcg SUBCUT MONTHLY Jardiance 10 mg tablet 10 mg PO DAILY dicyclomine 20 mg Tablet 20 mg PO QID albuterol sulfate 90 mcg/actuation Aero Powdr Breath Act W/Sensor 90 mcg INHALATION QID lidocaine 5 % Adhesive Patch,Medicated 3 patch TOPICAL DAILY carisoprodol 350 mg tablet 350 mg PO QID cholecalciferol (vitamin D3) 50 mcg (2,000 unit) Capsule 50 mcg PO DAILY albuterol sulfate 2.5 mg /3 mL (0.083 %) solution for nebulization 2.5 mg continuous nebulization Q4H PRN (Reason: Shortness Of Breath Or Wheezing) cilostazol 50 mg tablet 50 mg PO DAILY clopidogrel 75 mg tablet 75 mg PO DAILY nitroglycerin 0.4 mg tablet, sublingual See Rx Instructions .ROUTE .COMPLEX Rx Instructions: see rx instructions dexlansoprazole [Dexilant] 60 mg capsule,biphase delayed releas 60 mg PO DAILY Xtampza ER 36 mg cap,sprinkl,ER12hr(DONT CRUSH) 36 mg PO DAILY Trelegy Ellipta 100-62.5-25 mcg blister with device See Rx Instructions .ROUTE .COMPLEX Rx Instructions: see rx instructions Follow-up/Referrals: Alec,MD Nishi [Primary Care Provider] - Time of Disposition: 16:30 Quality [place] Coma Scale Eyes: Open Verbal: Oriented and Alert Motor: Follows Commands [place] Coma Total Score: 15
--- OUTSIDE RECORDS SUMMARY | 2025-03-10 16:38 | XMS_ITS ---
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 Name Role Phone Tha Costa Unavailable Unavailab le Allergies and adverse reactions Code CodeSystem Substance Reaction Severity StartDate Concern Status Tuberculin Tests Moderate Unknown active 5339410 RXNORM Tetanus Immune Globulin Unknown 06/26/[address] Sulfa Antibiotics Unknown 06/26/2015 active 7984 RXNORM Penicillin Unknown 06/26/2015 active Pamelor Unknown 06/26/[address] NSAIDs Unknown 06/26/2015 active Neurontin Unknown 06/26/2015 active Lyrica Unknown 06/26/2015 active Care Team Name Role Address Phone Organization Dates Tha Costa PCP [address] [place] [address], [id number], [place] (Office): : : [facility] 06/26/2015 - 07/16/2015 Mental Status Section Date Assessment Total Score Description 07/16/2015 BIMS 15 cognitively int act PHQ-9 03 minimal depress ion 07/10/2015 BIMS 15 cognitively int act PHQ-9 07 mild depression Problems Problem # Description Date of onset Resolved Date Code CodeSystem Concern Status 1 DIFFICULTY IN WALKING, NOT ELSEWHERE CLASSIFIED 07/09/[address] active 2 HISTORY OF FALLING 07/09/[address] active 3 CHRONIC OBSTRUCTIVE PULMONARY DISEASE, UNSPECIFIED 06/27/[address] active 4 PAIN IN UNSPECIFIED JOINT 06/27/[address] active 5 UNSPECIFIED FRACTURE OF UNSPECIFIED FOREARM, INITIAL ENCOUNTER FOR CLOSED FRACTURE 06/27/[address] active 6 UNSPECIFIED FRACTURE OF UPPER END OF UNSPECIFIED HUMERUS, INITIAL ENCOUNTER FOR CLOSED FRACTURE 06/27/[address] active 7 ENCOUNTER FOR OTHER ORTHOPEDIC AFTERCARE 06/26/[address] active 8 ENCOUNTER FOR OTHER SPECIFIED AFTERCARE 06/26/[address] active 9 ESSENTIAL (PRIMARY) HYPERTENSION 06/26/[address] active 10 FRACTURE OF UNSPECIFIED METATARSAL BONE(S), UNSPECIFIED FOOT, INITIAL ENCOUNTER FOR CLOSED FRACTURE 06/26/[address] active 11 GASTRO-ESOPHAGEAL REFLUX DISEASE WITHOUT ESOPHAGITIS 06/26/[address] active 12 INSOMNIA, UNSPECIFIED 06/26/[address] active 13 MUSCLE WEAKNESS (GENERALIZED) 06/26/[address] active 14 OTHER CHRONIC PAIN 06/26/[address] active 15 UNSPECIFIED FRACTURE OF UNSPECIFIED FOOT, INITIAL ENCOUNTER FOR CLOSED FRACTURE 06/26/[address] active Reason for Referral No Reasons for Referral Entered Social History Social History Observation Description Start Date End Date Code Code System Current Smoking Status Tobacco smoking consumption unknown 161132385 SNOMED CT Sex Assigned At Female 1945 57368-5 [facility] Vital Signs Code Code System Vitals Name Values and Units Timing Information 78328-6 [facility] O2 % BldC Oximetry Value=92.0 Units= % 07/16/2015 86825-0 [facility] Pain Level Value=5.0 07/16/2015 9279-1 [facility] Respiratory Rate Value=20.0 Units=/m in 07/15/2015 8462-4 [facility] Blood Pressure-Diastolic Value=62 Un its=mmHg 07/15/2015 8480-6 [facility] Blood Pressure-Systolic Lfeal=630 Un its=mmHg 07/15/2015 8310-5 [facility] Body Temperature Value=98.0 Units= F 07/15/2015 8867-4 [facility] Heart rate Value=80.0 Units=/min 10491-7 [facility] Weight Ilvyb=623.0 Units=Lbs 8302-2 [facility] Height Value=4.0 Units=Inches 06/27/2015
--- OUTSIDE RECORDS SUMMARY | 2025-03-10 16:38 | XMS_ITS ---
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, KATHY Unavailable ALLERGIES Allergen (clinical drug ingredient) Drug/Non Drug Allergy documented on EMR Reaction Allergy Type Onset Date Status ibuprofen Ibuprofen ALL NSAIDS Drug Allergy Active pregabalin Lyrica Unknown Drug Allergy Active penicillin V Penicillin V Potassium Unknown Drug Allergy Active Sulfamethoxazole Unknown Drug Allergy Active horse skin extract Horse Epithelium HORSE SERUM Drug Allergy Active Elavil Unknown Drug Allergy Active gabapentin Gabapentin Unknown Drug Allergy Activ e REASON FOR VISIT recurrent abd pain MEDICATIONS Medication SIG (Take, Route, Frequency, Duration) Notes Start Date End Date Status Dicyclomine HCl 20 MG TAKE ONE TABLET BY MOUTH FOUR TIMES a DAY 30 for 30 Active Dexilant 60 MG TAKE ONE (1) CAPSULE BY MOUTH DAILY for 90 Active Vitamin B12 100 MCG as directed Orally Active Tymlos 3120 MCG/1.56ML as directed Subcutaneous Active Vitamin D3 4754263 UNIT/GM as directed Active Movantik 12.5 MG 1 tablet in the morning Orally Once a day for 30 day(s) 09/02/2020 Not-Taking MiraLax 17 GM 1 packet mixed with 8 ounces of fluid Orally Once a day for 30 day(s) 10/18/2020 Not-Taking OxyCONTIN 80 MG 1 tablet Orally ever y 12 hrs Not-Taking Furosemide 20 MG 1 tablet Orally twic e a week Not-Taking Metoclopramide HCl 5 MG as directed Orally Not-Taking Promethazine HCl 25 MG 1 tablet as neede d Orally every 12 hrs for 30 day(s) Active oxyCODONE-Acetaminophen 10-325 MG 1 tablet as needed Orally every 6 hrs Active Jublia 10 % 1 application to affected area Externally Once a day Not-Taking Linzess 290 MCG TAKE ONE CAPSULE BY MOUTH DAILY for 30 Not-Taking Alendronate Sodium 70 MG 1 tablet Orally for 30 day(s) Not-Taking Metoprolol Tartrate 25 MG 1 tablet with food Orally Twice a day for 30 day(s) Active Faqcoxabplw-Ureugqrpi-Kcaw nt 100-62.5-25 MCG/INH 1 puff Inhalation Once a day Active Lidocaine 5 % 1 patch to skin carly ve after 12 hours Externally Once a day Active Carisoprodol 350 MG 1 tablet as needed Orally Four times a day Active DULoxetine HCl 60 MG 1 capsule Orally On ce a day for 30 day(s) Active Ketoconazole 2 % as directed Externally Active Cholecalciferol 50 MCG (2000 UT) 1 capsule Orally Once a day Active Abaloparatide 3120 MCG/1.56ML as directed Subcutaneous Active Amitiza 24 MCG 1 capsule with food Orally Twice a day for 30 day(s) Active Acetaminophen 325 MG 1 tablet as needed Orally every 4 hrs Active Senna Plus 8.6-50 MG 1 tablet in the evening as needed Orally Once a day Active ProAir HFA 108 (90 Base) MCG/ACT 1 puff as needed Inhalation every 4 hrs Active SOCIAL HISTORY Tobacco Use: Social History Observation Description Date Details (start date - stop date) Former Smoker NA - NA Sex Assigned At : Social History Observation Description Sex Assigned At Unknown Tobacco Use/Smoking Question Answer Notes Are you a former smoker How long has it been since y ou last smoked? 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 More than 50% spent reviewing diagnostic results, compliance with current medical therapy, counseling patient on low fat diet, weight reduction to normal BMI, normal BMI discussed, avoidance of ETOH/tobacco products, discussing treatment options. Have discussed details of EUS and/or ERCP procedure including indications/risk s/expected outcomes/limitat ions/possible medication side effects, and alternatives to procedure. Instructed patient regarding management plan, follow-up visits, and stressed importance of compliance with plan. PLAN OF TREATMENT Treatment Notes Assessment Notes Right upper quadrant pain discussed possible ERCP but informed her that due to her current status that it may be more detrimental due to her comorbidities. Script for 0..5mg lorazepam PRN #10 0 refill given at this time as this provides relief Anemia, unspecified recommended to follo w her GI regarding possible colon/EGD as well as continued monitoring Other Time spent: 25minute s. More than 50% spent reviewing diagnostic results, compliance with current medical therapy, counseling patient on low fat diet, weight reduction to normal BMI, normal BMI discussed, avoidance of ETOH/tobacco products, discussing treatment options. Have discussed details of EUS and/or ERCP procedure including indications/risks/expected outcomes/limitations/possible medication side effects, and alternatives to procedure. Instructed patient regarding management plan, follow-up visits, and stressed importance of compliance with plan. Next Appt Details Follow Up: prn, Reason: Progress Notes * Shannon NINO ADOB:[birth year] (78 yo F)Acc No.[id number]:05/26/2024 Progress Notes Patient: Shannon NINO Appointment Provider: Kathy Morales CNP :1945 Age:78 Y Sex:Female Date:05/26/2024 [id number] Pcp:Nishi Michael MD Subjective: * Chief Complaints: * 1. Recurrent abd pain. * HPI: Abdominal pain: 78 year old female presents with c/o Abdominal pain. c/o The pain began many years ago.. c/o The pain is located in the right upper quadrant . c/o The pain daily, frequent, mostly a constant dull ache, but can have periods of very sharp pain. Increasing the dicyclomine has helped and feels the pain isn't as bad as it has been in the past. . c/o Aggravating factors include almost anything, worse with eating. c/o Alleviating factors include Better with B entyl 20 mg TID-QID. On chronic narcotics. She has been seeing pain management for years. She was sent to another pain management to discuss placement of a pain pump, but she was told she was not a good candidate.. c/o Associated factors include occasional nausea, c hronic constipation on chronic narcotics. Has tried Tried Amitiza and Linzess 145 mcg, Miralax. Taking quite a bit of Senokots and only having maybe once bowel movement per week. Tried the Linzess 290 mcg dose w/out relief. . c/o Medication(s) for abdominal pain include As previously noted Bentyl, Amitiza and Senokot. Also taking Dexilant 60 mg daily. . c/o Prior testing include Has had ERCP twice 1999 and 2010. Attempted to schedule an EUS, but felt to be high risk pulmonary jeter therefore not done. Patient reportedly d/w her mailer again recently, but reportedly expressed concern and feels she is too high risk for procedures. Patient reports mailer advised she has a 30-40% risk of having an adverse complication with anesthesia. . The severity of the pain is varied in severity. A CT (computed tomography) scan of the abdomen 05/12/19 fairly extensive fecal material in colon. Underdistention of sigmoid, possibly some mural thickening of sigmoid vs underdistention. Possible colitis, possibly infectious, inflammatory of ischemic. Intra and extrahepatic biliary ductal dilatation with pneumobilia, which was present previously. Atrophic changes of pancreas, as previously. Underdistention of stomach, changes of gastritis difficult to exclude. Prominent LN in left inguinal region, not evident previously. . Overall condition is variable. Notes she has lost about 20-22 lb. At last visit 06/2020 reported that her?weight was 118 lb. Now states ~120 lb. A t OV 05/2019 her weight was 141 lb. S he is not h ungry, but admits she has been struggling with some d epression as well. She feels her symptoms are stable at this time. . UPDATE 08/09/21 P resents today for her annual follow up. States that she is doing well on Bentyl and was denied Amitza for her constipation. She takes colace and senekot as needed to help. States that the samples of Amitza worked well for her. No complaints of nausea, vomiting. P resented CT scan after she left stating that she had lost weight. Last weight that was recorded her was in 2018 which she was 141, she is [address] scan showed suboptimal exam due to paucity of intra-abdominal and intrapelvic fat. N o evidence of bowel obstruction, mild mucosal thickening of the descending colon and sigmoid colon, which may be related to underdistention versus mild colitis of infectious or inflammatory etiology. mild focal mucosal thickening involving the gastric body along with suggestion of mild gastritis fold thickening and findings may related to under-distention peristalsis. Moderate amount of retained fecal debris in colon, re-demonstration of intrahepatic and extrahepatic pneumobillia along with intrahepatic and extrahepatic biliary ductal dilation with the CBD measuring up to 1.5cm which is similar to prior study. 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 - UPDATE 06/30/22 P resents today for complaints of increasing right upper quadrant pain, nausea and vomiting. She states that she has had increasing pain for the last couple months and presented to [facility] ED in January were she was admitted for 4 days for being jaundiced as well as abdominal pain. She states that she had followed up with a GI dr from there but states that nothing was followed up on. She states that she is having constant abdominal pain rated at an 8/10 that can increase to a 10/10 with eating and even when she moves. She states that she is just laying in bed all day as she is in horrible pain all day. She has complaints of nausea and vomiting and will force herself to eat at times. She states that she has seen her PCP recently as was referred to Palliative Care for pain management. She has yet to see them. P revious testin lfts normal CT scan showed marked extrahepatic biliary dilation and mild intrahepatic dilation. Pneumobilia. No obstructing mass or stone identified at the distal common bile duct. 1x2cm pancreatic neck cystic abnormality, which may be sequelae of pancreatitis given that it appears new since May 2021. - UPDATE 11/09/22 P resents today via telemed for follow up of her ERCP and EUS. ERCP was completed on 07/05/[address] Akers that showed papillary stenosis treated with extension of previous (1999) biliary/pancreatic sphincterotomies, dual duct stenting was performed and removed on 07/07/22 and excellent drainage was noted. EUS was completed on 09/[address] Gillespie showed the pancreatic duct had a dilated endosonographic appearance in the main PD. A cystic lesion was seen in the genu of the pancreas. Tissue showed no malignancy. The endosonographic appearance is suspicious for a branched intraductal papillary mucinous neoplasm vs pseudocyst, favor IPMN. There was dilation in the CBD and in the GB which measured up to 16mm due to papillary stenosis. She states that she is still having a sharp stabbing paint that will come on. States that the dicyclomine does not help. She was sent home with PRN lorazepam and will take that which does help with the pain. She does note that her complaints are a little better after her procedure were she is able to tolerate pain. She is doing well eating a low fat diet as well - UPDATE 12/28/22 P resents today via telemed with complaints of anemia. She was seen to have radial fracture and was seen to have a decreased hemoglobin in October. Fecal blood was negative. She has had repeat blood work since, still with decreased H&Hs. She never received any transfusion within that time. She was started on iron infusions, she received her first one yesterday. She is to have three with repeat labs completed at the end of this month. She states that she is fatigued but feeling a little better since infusion. No reports of melena. P revious testin H&H 8.6/27.4, H&H 7.7/25.3 H&H 10.1/32.3 - UPDATE 05/26/24 Valorie gill presents today with complaints of RUQ pain for the past few weeks. She presented to [facility] ED on 05/22/24 with complaints in which blood work was completed that showed mild anemia and normal LFTs, amylase. She did not have a CT scan as labs were normal and she informed the staff that her pain would resolve with a dose of lorazepam.. She was given a dose and her pain resolved. She states that she has a pressure in her RUQ at times and that she is unsure if the dicyclomine helps. She does admit that she was given doxycycline for a cat scratch not too long ago and shortly she began having complaints. She was seeing GI in [place] as she was referred for her anemia for colon/EGD and she states that she has yet to have completed. She states that she is eating well and has no complaints of nausea/vomiting. 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 MRCP showed mild intrahepatic and moderate extrahepatic biliary dilation slightly increased compared to prior exam. 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 Underlying pneumobilia is again noted. * ROS: Gastrointestinal: Admits Abdominal pain. Denies Blood in stool. Denies Change in bowel habits. Denies Colitis, denies. Denies Constipation. Denies Decreased appetite. Denies Diarrhea. Denies Difficulty swallowing. Denies Exposure to hepatitis. Denies Heartburn. Denies Hematemesis. Denies Hepatitis, denies. Denies Nausea. Denies Rectal bleeding. Denies Stomach problems, denies. Denies Vomiting. Denies Weight loss. * Medical History: GERD, Biliary dyskinesia, SOD/papillary stenosis s/p ERCP 1999, 2010, Acute pancreatitis, Chronic abdominal pain, Fibromyalgia, Migraines, COPD on continuous supplemental oxygen via NC, Arthritis, Type 2 diabetes, Gastroparesis, DJD, Cholelithiasis, Neuropathy, Hx colon polyps, Right renal atrophy, CHF, Pulmonary nodule, Opioid induced constipation. * Surgical History: EGD/Colonoscopy Federico 2012 , ERCP Aliperti 03/13/11 pancreatic papillary stenosis s/p pancreatic sphincterotomy after extension of previous biliary sphincterotomy, dual duct protective stenting. Stents removed 03/15/11. , ERCP 02/03/2000 Aliperti biliary stenosis s/p biliary sphincterotomy. , EGD 1994 , Colonoscopy 2004 , Tubal ligation 1989 , Appendectomy/open cholecystectomy 1989 , Exploratory lap 1975 , Colonoscopy reportedly 2016 w/polyps , ERCP Aliperti- ext of previous sphincterotomies, dual stenting performed and removed on 07/0707/05/22. * Family History: Father: , cancer, arthritis. Mother: , cancer, arthritis, diagnosed with Disease of gallbladder, unspecified. 2 living sisters hx HTN and DM; 1 living child and 1 . * Social History: Tobacco Use: Tobacco Use/Smoking Are you a former smoker, How long has it been since you last smoked? > 10 years, Additional Findings: Tobacco Non-User Ex-moderate cigarette smoker (10-19/day). * Medications: Taking Vitamin D3 8208930 UNIT/GM Liquid as directed , Taking Vitamin B12 100 MCG Tablet as directed Orally , Taking Tymlos 3120 MCG/1.56ML Solution Pen-injector as directed Subcutaneous , Taking Senna Plus 8.6-50 MG Tablet 1 tablet in the evening as needed Orally Once a day , Taking ProAir HFA 108 (90 Base) MCG/ACT Aerosol Solution 1 puff as needed Inhalation every 4 hrs , Taking Ketoconazole 2 % Shampoo as directed Externally , Taking Cholecalciferol 50 MCG (2000 UT) Capsule 1 capsule Orally Once a day , Taking Acetaminophen 325 MG Tablet 1 tablet as needed Orally every 4 hrs , Taking Abaloparatide 3120 MCG/1.56ML Solution Pen-injector as directed Subcutaneous , Taking Amitiza 24 MCG Capsule 1 capsule with food Orally Twice a day , Taking Carisoprodol 350 MG Tablet 1 tablet as needed Orally Four times a day , Taking DULoxetine HCl 60 MG Capsule Delayed Release Particles 1 capsule Orally Once a day , Taking Thbnyafyamo-Wuhvtmxfi-Uwghyw 100-62.5-25 MCG/INH Aerosol Powder Breath Activated 1 puff Inhalation Once a day , Taking Lidocaine 5 % Patch 1 patch to skin remove after 12 hours Externally Once a day , Taking Metoprolol Tartrate 25 MG Tablet 1 tablet with food Orally Twice a day , Taking oxyCODONE-Acetaminophen 10-325 MG Tablet 1 tablet as needed Orally every 6 hrs , Taking Promethazine HCl 25 MG Tablet 1 tablet as needed Orally every 12 hrs , Taking Dicyclomine HCl 20 MG Tablet TAKE ONE TABLET BY MOUTH FOUR TIMES a DAY 30 , Taking Dexilant 60 MG Capsule Delayed Release TAKE ONE (1) CAPSULE BY MOUTH DAILY , Not-Taking Linzess 290 MCG Capsule TAKE ONE CAPSULE BY MOUTH DAILY , Not-Taking Alendronate Sodium 70 MG Tablet 1 tablet Orally , Not-Taking Jublia 10 % Solution 1 application to affected area Externally Once a day , Not-Taking Metoclopramide HCl 5 MG Tablet as directed Orally , Not-Taking OxyCONTIN 80 MG Tablet ER 12 Hour Abuse-Deterrent 1 tablet Orally every 12 hrs , Not- Taking Furosemide 20 MG Tablet 1 tablet Orally twice a week , Not-Taking Movantik 12.5 MG Tablet 1 tablet in the morning Orally Once a day , Not-Taking MiraLax 17 GM Packet 1 packet mixed with 8 ounces of fluid Orally Once a day * Allergies: Penicillin V Potassium, Sulfamethoxazole, Elavil, Lyrica, Ibuprofen: ALL NSAIDS, Horse Epithelium: HORSE SERUM, Gabapentin. Objective: * Vitals: HR:76/min, BP:130/73mm Hg, Wt:115lbs, BMI: 24.03 Index, Ht: 58 in, Ht-cm: 147.32 cm, Wt-k.16 kg did not weigh as she was not ayad to get out of chair. 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 HEART: no murmurs, regular rate and rhythm, S1, S2 normal. LUNGS: decreased on 3L NC. ABDOMEN: normal, bowel sounds present, soft, nontender, nondistended. NEUROLOGIC: alert and oriented, sensory exam intact. Assessment: * Assessment: 1. Right upper quadrant pain - R10.11 (Primary) 2. 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 Anemia, unspecified - D64.9 Plan: * Treatment: 2. Anemia, unspecified Notes: recommended to follow her GI regarding possible colon/EGD as well as continued monitoring 3. Others Notes: Time spent: 25minutes. More than 50% spent reviewing diagnostic results, compliance with current medical therapy, counseling patient on low fat diet, weight reduction to normal BMI, normal BMI discussed, avoidance of ETOH/tobacco products, discussing treatment options. Have discussed details of EUS and/or ERCP procedure including indications/risks/expected outcomes/limitations/possible medication side effects, and alternatives to procedure. Instructed patient regarding management plan, follow-up visits, and stressed importance of compliance with plan. * Follow Up: prn * Images: * Sign off status: Completed true * Appointment Provider: Kathy Morales CNP Date: 05/26/2024 History and Physical Notes * HPI (History of Present Illness) Category Sub-Category Detail Notes Category Not es Abdominal pain The pain began many years ago. -UPDATE 08/09/21 Presents today for her annual follow up. States that she is doing well on Bentyl and was denied Amitza for her constipation. She takes colace and senekot as needed to help. States that the samples of Amitza worked well for her. No complaints of nausea, vomiting. Presented CT scan after she left stating that she had lost weight. Last weight that was recorded her was in 2019 which she was 141, she is [address] scan showed suboptimal exam due to paucity of intra-abdominal and intrapelvic fat. No evidence of bowel obstruction, mild mucosal thickening of the descending colon and sigmoid colon, which may be related to underdistention versus mild colitis of infectious or inflammatory etiology. mild focal mucosal thickening involving the gastric body along with suggestion of mild gastritis fold thickening and findings may related to under-distention peristalsis. Moderate amount of retained fecal debris in colon, re-demonstration of intrahepatic and extrahepatic pneumobillia along with intrahepatic and extrahepatic biliary ductal dilation with the CBD measuring up to 1.5cm which is similar to prior study. 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 -UPDATE 06/30/22 -------- Presents today for complaints of increasing right upper quadrant pain, nausea and vomiting. She states that she has had increasing pain for the last couple months and presented to [facility] ED in January were she was admitted for 4 days for being jaundiced as well as abdominal pain. She states that she had followed up with a GI dr from there but states that nothing was followed up on. She states that she is having constant abdominal pain rated at an 8/10 that can increase to a 10/10 with eating and even when she moves. She states that she is just laying in bed all day as she is in horrible pain all day. She has complaints of nausea and vomiting and will force herself to eat at times. She states that she has seen her PCP recently as was referred to Palliative Care for pain management. She has yet to see them. Previous testin06/13/22 lfts normal 02/01/22 CT scan showed marked extrahepatic biliary dilation and mild intrahepatic dilation. Pneumobilia. No obstructing mass or stone identified at the distal common bile duct. 1x2cm pancreatic neck cystic abnormality, which may be sequelae of pancreatitis given that it appears new since May 2021. UPDATE 11/09/22 Presents today via telemed for follow up of her ERCP and EUS. ERCP was completed on 07/05/[address] Akers that showed papillary stenosis treated with extension of previous (1999) biliary/pancreatic sphincterotomies, dual duct stenting was performed and removed on 07/07/22 and excellent drainage was noted. EUS was completed on 09/[address] Gillespie showed the pancreatic duct had a dilated endosonographic appearance in the main PD. A cystic lesion was seen in the genu of the pancreas. Tissue showed no malignancy. The endosonographic appearance is suspicious for a branched intraductal papillary mucinous neoplasm vs pseudocyst, favor IPMN. There was dilation in the CBD and in the GB which measured up to 16mm due to papillary stenosis. She states that she is still having a sharp stabbing paint that will come on. States that the dicyclomine does not help. She was sent home with PRN lorazepam and will take that which does help with the pain. She does note that her complaints are a little better after her procedure were she is able to tolerate pain. She is doing well eating a low fat diet as well UPDATE 12/28/22 Presents today via telemed with complaints of anemia. She was seen to have radial fracture and was seen to have a decreased hemoglobin in October. Fecal blood was negative. She has had repeat blood work since, still with decreased H&Hs. She never received any transfusion within that time. She was started on iron infusions, she received her first one yesterday. She is to have three with repeat labs completed at the end of this month. She states that she is fatigued but feeling a little better since infusion. No reports of melena. Previous testin12/03/22 H&H 8.6/27.4, 12/04/22 H&H 7.7/25.3 12/05/22 H&H 10.1/32.3 UPDATE 05/26/24 -- Shannon presents today with complaints of RUQ pain for the past few weeks. She presented to [facility] ED on 05/22/24 with complaints in which blood work was completed that showed mild anemia and normal LFTs, amylase. She did not have a CT scan as labs were normal and she informed the staff that her pain would resolve with a dose of lorazepam.. She was given a dose and her pain resolved. She states that she has a pressure in her RUQ at times and that she is unsure if the dicyclomine helps. She does admit that she was given doxycycline for a cat scratch not too long ago and shortly she began having complaints. She was seeing GI in [place] as she was referred for her anemia for colon/EGD and she states that she has yet to have completed. She states that she is eating well and has no complaints of nausea/vomiting. 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 MRCP showed mild intrahepatic and moderate extrahepatic biliary dilation slightly increased compared to prior exam. 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 Underlying pneumobilia is again noted. The pain is located in the right upper q uadrant The pain daily, frequent, mos tly a constant dull ache, but can have periods of very sharp pain. Increasing the dicyclomine has helped and feels the pain isn't as bad as it has been in the past. The severity of the pain is varied in se verity Aggravating factors include almost anyth ing, worse with eating Alleviating factors include Better with Bentyl 20 mg TID-QID. On chronic narcotics. She has been seeing pain management for years. She was sent to another pain management to discuss placement of a pain pump, but she was told she was not a good candidate. Associated factors include occasional na usea, chronic constipation on chronic narcotics. Has tried Tried Amitiza and Linzess 145 mcg, Miralax. Taking quite a bit of Senokots and only having maybe once bowel movement per week. Tried the Linzess 290 mcg dose w/out relief. Medication(s) for abdominal pain include As previously noted Bentyl, Amitiza and Senokot. Also taking Dexilant 60 mg daily. Prior testing include Has had ERCP twice 1999 and 2010. Attempted to schedule an EUS, but felt to be high risk pulmonary jeter therefore not done. Patient reportedly d/w her mailer again recently, but reportedly expressed concern and feels she is too high risk for procedures. Patient reports mailer advised she has a 30-40% risk of having an adverse complication with anesthesia. A CT (computed tomography) s can of the abdomen 05/12/19 fairly extensive fecal material in colon. Underdistention of sigmoid, possibly some mural thickening of sigmoid vs underdistention. Possible colitis, possibly infectious, inflammatory of ischemic. Intra and extrahepatic biliary ductal dilatation with pneumobilia, which was present previously. Atrophic changes of pancreas, as previously. Underdistention of stomach, changes of gastritis difficult to exclude. Prominent LN in left inguinal region, not evident previously. Overall condition is variable. Notes s he has lost about 20-22 lb. At last visit 06/2020 reported that her weight was 118 lb. Now states ~120 lb. At OV 05/2019 her weight was 141 lb. She is not hungry, but admits she has been struggling with some depression as well. She feels her symptoms are stable at this time. 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
--- OUTSIDE RECORDS SUMMARY | 2025-03-10 16:38 | XMS_ITS | Encounter Summary ---
Author Organization [facility] Address [address] [place] [address] Phone Care Team Providers Care Poultry Process Worker Name Role Phone Nishi Michael MD Primary Care Provider Mark Tolliver MD Unavailable Ceasar Yang MD Unavailable Ave Collado MD Unavailable Tyshawn Ulloa MD Unavailable Alli Caballero MD Unavailable Maikel Mckeon MD Unavailable Rosie Velasquez MD Unavailable John Pete MD Unavailable [phone] Yuri Akers MD Unavailable Olivia Romano LPN Unavailable Olivia Romano LPN Unavailable [phone] Olivia Romano LPN Unavailable [phone] Blaze Fernando MD Unavailable Deshaun Xavier MD Unavailable Dylan Gillespie MD Unavailable Michael Ramsey MD Unavailable [phone] Yoly Ramirez MD Unavailable Filipe Monsalve DPM Unavailable [phone] Lina Nataliya TUB ATTENDANT Unavailable Unavaila ble Encounter Details Date Type Department Care Team (Late st Contact Info) Description 08/23/2021 Orders Only [facility] [address] [place] [address] Nishi Michael MD [address] [place] [address] Social History Tobacco Use Types Packs/Day Years Used Date Smoking Tobacco: Former Smokeless Tobacco: Former Comments:Smoking History Pac ks/day: 1 Packs Alcohol Use Standard Drinks/Week Comments No 0 (1 standard drink = 0.6 oz pur e alcohol) PHQ-2 Answer Date Recorded PHQ-2 Total Score (If total score is 3 or more points, staff should administer the PHQ-9) 0 09/14/2020 Comments No Sex and Gender Information Value Date Recorded Sex Assigned at Not on file Legal Sex Female 8:25 AM DIRECTOR OF PROCUREMENT Gender Identity Not on file Sexual Orientation Not on file Occupation Industry Job Start Date Job End Date retired Not on file Not on file Not on file documented as of this encounter Plan of Treatment Not on file documented as of this encounter Procedures Procedure Name Priority Date/Time Associated Diagnosis Comments SCAN - RADIOLOGY/IMAGING 08/23/2021 documented in this encounter Results * SCAN - RADIOLOGY/IMAGING (08/23/2021) Anatomical Region Laterality Modality Other us Nishi Michael MD Final Resu lt documented in this encounter Visit Diagnoses Not on filedocumented in this encounter Additional Health Concerns Infection Onset Date Last Indicated Resolved Time COVID: Suspected 12/03/2022 12/03/2022 12/03/2022 1:09 PM DIRECTOR OF PROCUREMENT COVID: Suspected 02/02/2023 02/02/2023 02/02/2023 8:56 AM DIRECTOR OF PROCUREMENT COVID19 Comment:Patient has documented SpO2 < 94% which required additional supplemental oxygen > 24 hours and is not immunosuppressed. Based on a S&S onset date of 01/23/23 plus the need for additional supplemental oxygen this patient is first eligible for COVID: Recovered evaluation on 02/08/23. MIRIAN Torres 02/02/2023 02/02/202301/25 3:05 AM CDT COVID: Recovered Comment:Added based on recent COVID infection. 02/16/2023 02/21/2023 05/17/2023 3:05 AM C DT Exposure, COVID-19 Comment:Airborne + Contact precautions. Gown, Gloves, N95, eye protection or goggles. Precautions 07/26/23. Contact Field Service Analyst if patient worsens. ALICIA Hamilton 07/17/23 07/16/2023 07/17/2023 07/26/2023 3:05 AM C DT documented as of this encounter Care Teams Poultry Process Worker Relationship Specialty Start Date End Date Nishi Michael MD PCP - General 02/23/17 [place] [address] [place] [address] Physical Medicine and Rehabilitation 09/07/17 [place] [address] [address] [place] [address] Coffee Maker 09/07/17 [place] [address] [address] [place] [address] Nephrology 09/07/17 10/15/24 [place] [address] [address] [facility] [address] [place] [address] Pulmonary Disease 09/07/17 03/13/23 [place] [address] [place] [address] Gastroenterology 09/07/17 12/17/22 Maikel Mckeon MD [address] [place] [address] [place] [address] Referring Physician Ophthalmology 03/11/18 Rosie Velasquez MD [address] [place] [address] Consulting Physician Cardiology 05/25/20 John Pete MD [address] [place] [address] Consulting Physician Gastroenterology 02/01/22 08/29/23 Yuri Akers MD [address] [facility] [address] [place] [address] Consulting Physician Gastroenterology 07/07/22 Olivia Romano LPN [address] [facility] [address] [place] [address] ACO Care Pile Fabric Knitter 07/14/22 08/28/22 Olivia Romano LPN [address] [facility] [address] [place] [address] ACO Care Pile Fabric Knitter 09/14/22 10/10/22 Olivia Romano LPN [address] [facility] [address] [place] [address] ACO Care Pile Fabric Knitter 09/14/22 09/14/22 Blaze Fernando MD [address] [facility] [facility] [address] [place] [address] Surgeon Orthopedic Surgery 12/06/22 Deshaun Xavier MD [address] [facility] [place] [address] Consulting Physician Pulmonary Disease 03/14/23 Dylan Gillespie MD [address] [facility] [address] [place], [place] [id number] Consulting Physician Gastroenterology 06/14/23 Michael Ramsey MD [address] [facility] [address] [place] [address] Consulting Physician Cardiology 07/12/23 10/15/24 Yoly Ramirez MD [address] [facility] [place] [address] Consulting Physician Gastroenterology 08/30/23 Filipe Monsalve DPM [address] [place] [address] Consulting Physician Orthotics 04/09/24 Nataliya Mills LCSW Water Pumping Station Engineer 10/17/24 11/23/24 documented as of this encounter
--- OUTSIDE RECORDS SUMMARY | 2025-03-10 16:38 | XMS_ITS | Encounter Summary ---
Author Organization [facility] Healthcare Address [address] [place] [address] Care Team Providers Care Lay Ups Assembler Name Role Phone Nishi Michael MD Primary Care Provider + [phone] Mark Tolliver MD Unavailable [phone] Ceasar Yang MD Unavailable [phone] Ave Collado MD Unavailable [phone] Tyshawn Ulloa MD Unavailable [phone] Alli Caballero MD Unavailable [phone] Maikel Mckeon MD Unavailable [phone] Rosie Velasquez MD Unavailable [phone] John Pete MD Unavailable [phone] Yuri Akers MD Unavailable [phone] Olivia Romano LPN Unavailable [phone] Olivia Romano LPN Unavailable [phone] Olivia Romano LPN Unavailable [phone] Blaze Fernando MD Unavailable [phone] Deshaun Xavier MD Unavailable Dylan Gillespie MD Unavailable [phone] Michael Ramsey MD Unavailable [phone] Yoly Ramirez MD Unavailable Filipe Monsalve DPM Unavailable [phone] Nataliya MillsW Unavailable Unavaila ble Encounter Details Date Type Department Care Team (Late st Contact Info) Description 06/30/2020 Telephone [facility] [address] [place] [address] Reginald Ibarra, RT Social History Tobacco Use Types Packs/Day Years Used Date Smoking Tobacco: Former Smokeless Tobacco: Former Comments:Smoking History Pac ks/day: 1 Packs Alcohol Use Standard Drinks/Week Comments No 0 (1 standard drink = 0.6 oz pur e alcohol) PHQ-2 Answer Date Recorded PHQ-2 Score 0 08/05/2019 Comments No Sex and Gender Information Value Date Recorded Sex Assigned at Not on file Legal Sex Female 8:25 AM LEAN CONSULTANT Gender Identity Not on file Sexual Orientation Not on file Occupation Industry Job Start Date Job End Date retired Not on file Not on file Not on file documented as of this encounter Plan of Treatment Not on file documented as of this encounter Visit Diagnoses Not on filedocumented in this encounter Additional Health Concerns Infection Onset Date Last Indicated Resolved Time COVID: Suspected 09/20/2020 09/20/2020 09/21/2020 6:36 AM CDT Respiratory Infection (ASUNCION), contact + droplet Comment:Automatically added due to negative COVID-19 result. 09/21/2020 09/21/2020 10/05/2020 3:0 5 AM LEAN CONSULTANT COVID: Suspected 12/03/2022 12/03/2022 12/03/2022 1:09 PM LEAN CONSULTANT COVID: Suspected 02/02/2023 02/02/2023 02/02/2023 8:56 AM LEAN CONSULTANT COVID19 Comment:Patient has documented SpO2 < 94% [...] eye protection or goggles. Precautions 07/26/23. Contact Helpdesk Analyst if patient worsens. ALICIA Hamilton 07/17/23 07/16/2023 07/17/2023 07/26/2023 3:05 AM C DT documented as of this encounter Care Teams Lay Ups Assembler Relationship Specialty Start Date End Date Nishi Michael MD PCP - General 02/23/17 [place] [address] [facility] [address] [place] [address] Physical Medicine and Rehabilitation 09/07/17 [place] [address] [facility] 4 [place] [address] Litigator 09/07/17 [place] [address] [facility] [address] [place] [address] Nephrology 09/07/17 10/15/24 [place] [address] [facility] [address] [place] [address] Pulmonary Disease 09/07/17 03/13/23 [place] [address] [place] [address] Gastroenterology 09/07/17 12/17/22 Maikel Mckeon MD [address] [place] [address] [address] [place] [address] Referring Physician Ophthalmology 03/11/18 Rosie Velasquez MD [address] [place] [address] Consulting Physician Cardiology 05/25/20 John Pete MD [address] [place] [address] Consulting Physician Gastroenterology 02/01/22 08/29/23 Yuri Akers MD [address] [facility] [address] [place] [address] Consulting Physician Gastroenterology 07/07/22 Olivia Romano LPN [address] [place] [address] [address] [place] [address] ACO Care Parachute Line Tier 07/14/22 08/28/22 Olivia Romano LPN [address] [place] [address] [address] [place] [address] ACO Care Parachute Line Tier 09/14/22 10/10/22 Olivia Romano LPN [address] [place] [address] [facility] [address] [place] [address] ACO Care Parachute Line Tier 09/14/22 09/14/22 Blaze Fernando MD [address] [place] [address] DR MAKAYLA Freeman [facility] [address] [place] [address] Surgeon Orthopedic Surgery 12/06/22 Deshaun Xavier MD [address] [place] [address] [address] [place] [address] Consulting Physician Pulmonary Disease 03/14/23 Dylan Gillespie MD [address] [place] [address] Consulting Physician Gastroenterology 06/14/23 Michael Ramsey MD [address] [place] [address] Consulting Physician Cardiology 07/12/23 10/15/24 Yoly Ramirez MD [address] [place] [address] [address] [place] [address] Consulting Physician Gastroenterology 08/30/23 Filipe Monsalve DPM [address] [place] [address] Consulting Physician Orthotics 04/09/24 Nataliya Mills LCSW [employer] And Co Founder 10/17/24 11/23/24 documented as of this encounter
--- OUTSIDE RECORDS SUMMARY | 2025-03-10 16:38 | XMS_ITS ---
Author Organization [facility] Care Team Providers Care Client Technologies Specialist Name Role Phone Nishant Alex Unavailable Unavailable DevoraheRina Unavailable Unavailable Jack Ramsay Unavailable Unavailable Allergies and adverse reactions Code CodeSystem Substance Reaction Severity StartDate Concern Status tubercullin Unknown 04/07/2023 active 63573 RXNORM Tetracycline Skin reaction - finding (code- 900760172, SNOMED CT) Unknown 09/13/2022 active Tetanus Toxoids Unknown 09/13/2022 activ e 0221660 RXNORM Tetanus Immune Globulin Unknown 09/13/2022 active 9524 RXNORM sulfaSALAzine [place] on syndrome (code- 78850559, SNOMED CT) Unknown 09/13/2022 active 82557 RXNORM Sulfanilamide Unknown 09/13/2022 active 73602 RXNORM Sulfamethoxazole Unknown 09/13/[address]i [address] 970[address]694 SN[address]ED [address] Sulfa Antibiotics Skin react ion - finding (code- 278099187, SNOMED CT) Unknown 09/13/2022 active 226384 RXNORM Pregabalin Lung finding (code- 384615412, SNOMED CT) Unknown 09/13/2022 active 7984 RXNORM Penicillin Anaphylaxis (code- 66725503, SNOMED CT) Unknown 09/13/[address] NSAIDs Anaphylaxis (code- 55705529, SNOMED CT) Unknown 09/13/2022 active 7531 RXNORM Nortriptyline Unknown 09/13/2022 active 5666 RXNORM Immune Globulin Unknown 09/13/2022 activ e 5640 RXNORM Ibuprofen Unknown 09/13/2022 active Horse-derived Products Unknown 09/13/2022 active 31646 RXNORM Gabapentin Unknown 09/13/2022 active 2551 RXNORM Ciprofloxacin Skin reaction - finding (code- 076498508, SNOMED CT) Unknown 09/13/2022 active Amitriptyline Unknown 09/13/2022 active Care Team Name Role Address Phone Organization Dates Nishant Alex PCP [address] [place], [address], [place]Office[place] : : [facility] 04/08/2023 - 06/03/2023 Reina Fairchild Attending Physician [address] [place], [address], [place]Office[place] : [facility] [place] 04/08/2023 - 06/03/2023 Jack Ramsay Attending Physician [address], [phone], [place] (Office): [facility] 04/08/2023 - 06/03/2023 Immunizations Immunization Status Vaccine Details Vaccine Code CodeSystem Date Notes TB 2 Step Mantoux Skin Test cancelled tuberculin skin test; unspecified formulation 98 CVX created date: 09/15/2022 consent date: 09/15/2022 Pneumovax (PCV 13)(95477) completed pneumococcal conjugate vaccine, 13 valent lotNumber: [id number] expiry: 11/25/2023 Mfg: [employer]. Given 0.5 ml Left Deltoid intramuscularly 133 CVX created date: 09/15/2022 consent date: 09/15/2022 administere d date: 09/18/2022 Afluria (Influenza vaccine) Q2035 completed Influenza, split virus, quadrivalent, injectable, preservative free 150 CVX created date: 09/20/2022 administere d date: 09/07/2022 SARS-COV-2 Bivalent Booster- [facility] new SARS-COV-2 (COVID-19) vaccine, mRNA, spike protein, LNP, bivalent, preservative free, 30 mcg/0.3 mL dose, delano-sucrose formulation 300 CVX created date: 04/27/2023 consent date: 04/27/2023 Mental Status Section Date Assessment Total Score Description 06/03/2023 BIMS 15 cognitively int act CAM 0 No delirium ind icated PHQ-9 00 04/13/2023 BIMS 15 cognitively int act CAM 0 No delirium ind icated PHQ-9 06 mild depression Problems Problem # Description Date of onset Resolved Date Code CodeSystem Concern Status 1 DEPRESSION, UNSPECIFIED 05/11/[address] active 2 ACUTE ON CHRONIC DIASTOLIC (CONGESTIVE) HEART FAILURE 04/09/[address] active 3 CHRONIC OBSTRUCTIVE PULMONARY DISEASE, UNSPECIFIED 04/09/[address] active 4 VITAMIN D DEFICIENCY, UNSPECIFIED 04/09/[address] active 5 AGE-RELATED OSTEOPOROSIS WITHOUT CURRENT PATHOLOGICAL FRACTURE 04/07/[address] active 6 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 04/07/[address] active 7 CHRONIC PAIN SYNDROME 04/07/[address] active 8 CHRONIC RESPIRATORY FAILURE WITH HYPOXIA 04/07/[address] active 9 DIFFICULTY IN WALKING, NOT ELSEWHERE CLASSIFIED 04/07/[address] active 10 DYSPHAGIA, ORAL PHASE 04/07/[address] active 11 ENCOUNTER FOR OTHER ORTHOPEDIC AFTERCARE 04/07/[address] active 12 ESSENTIAL (PRIMARY) HYPERTENSION 04/07/[address] active 13 EXOCRINE PANCREATIC INSUFFICIENCY 04/07/[address] active 14 FRACTURE OF UNSPECIFIED PART OF NECK OF LEFT FEMUR, SUBSEQUENT ENCOUNTER FOR CLOSED FRACTURE WITH ROUTINE HEALING 04/07/[address] active 15 GASTRO-ESOPHAGEAL REFLUX DISEASE WITH ESOPHAGITIS, WITHOUT BLEEDING 04/07/[address] active 16 HISTORY OF FALLING 04/07/[address] active 17 HYPO-OSMOLALITY AND HYPONATREMIA 04/07/[address] active 18 INSOMNIA, UNSPECIFIED 04/07/[address] active 19 IRON DEFICIENCY ANEMIA, UNSPECIFIED 04/07/[address] active 20 INTERPRETATIVE DANCER (CURRENT) USE OF OPIATE ANALGESIC 04/07/[address] active 21 LYMPHEDEMA, NOT ELSEWHERE CLASSIFIED 04/07/[address] active 22 MIXED HYPERLIPIDEMIA 04/07/[address] active 23 NEED FOR ASSISTANCE WITH PERSONAL CARE 04/07/[address] active 24 PAROXYSMAL ATRIAL FIBRILLATION 04/07/[address] active 25 PERIPHERAL VASCULAR DISEASE, UNSPECIFIED 04/07/[address] active 26 PERSONAL HISTORY OF COLONIC POLYPS 04/07/[address] active 27 PERSONAL HISTORY OF TRANSIENT ISCHEMIC ATTACK (TIA), AND CEREBRAL INFARCTION WITHOUT RESIDUAL DEFICITS 04/07/[address] active 28 AGE-RELATED OSTEOPOROSIS WITHOUT CURRENT PATHOLOGICAL FRACTURE 09/13/20 22 04/09/[address] completed 29 CHRONIC DIASTOLIC (CONGESTIVE) HEART FAILURE 09/13/20 22 04/09/[address] completed 30 CHRONIC KIDNEY DISEASE, UNSPECIFIED 09/13/20 22 04/09/[address] completed 31 CHRONIC OBSTRUCTIVE PULMONARY DISEASE, UNSPECIFIED 09/13/20 22 04/09/[address] completed 32 CHRONIC PAIN SYNDROME 09/13/20 22 04/09/[address] completed 33 CHRONIC RESPIRATORY FAILURE WITH HYPOXIA 09/13/20 22 04/09/[address] completed 34 DEPENDENCE ON SUPPLEMENTAL OXYGEN 09/13/20 22 04/09/[address] completed 35 DEPRESSION, UNSPECIFIED 09/13/20 22 04/09/[address] completed 36 DIFFICULTY IN WALKING, NOT ELSEWHERE CLASSIFIED 09/13/20 22 04/09/[address] completed 37 FIBROMYALGIA 09/13/20 22 04/09/[address] completed 38 GASTRO-ESOPHAGEAL REFLUX DISEASE WITHOUT ESOPHAGITIS 09/13/20 22 04/09/[address] completed 39 HISTORY OF FALLING 09/13/20 22 04/09/[address] completed 40 INSOMNIA DUE TO MEDICAL CONDITION 09/13/20 22 04/09/[address] completed 41 LOW BACK PAIN, UNSPECIFIED 09/13/20 22 04/09/[address] completed 42 MIXED HYPERLIPIDEMIA 09/13/20 22 04/09/[address] completed 43 MODERATE PROTEIN-CALORIE MALNUTRITION 09/13/2004/09/[address] completed 44 MUSCLE WEAKNESS (GENERALIZED) 09/13/2004/09/[address] completed 45 NEED FOR ASSISTANCE WITH PERSONAL CARE 09/13/2004/09/[address] completed 46 OTHER IRON DEFICIENCY ANEMIAS 09/13/2004/09/[address] completed 47 OTHER SPECIFIED DISEASES OF PANCREAS 09/13/2004/09/[address] completed 48 OTHER SPECIFIED DISORDERS OF BONE DENSITY AND STRUCTURE, UNSPECIFIED SITE 09/13/2004/09/[address] completed 49 PAROXYSMAL ATRIAL FIBRILLATION 09/13/20 22 04/09/[address] completed 50 PERIPHERAL VASCULAR DISEASE, UNSPECIFIED 09/13/2004/09/[address] completed 51 PERSONAL HISTORY OF TRANSIENT ISCHEMIC ATTACK (TIA), AND CEREBRAL INFARCTION WITHOUT RESIDUAL DEFICITS 09/13/20 22 04/09/[address] completed 52 PRIMARY GENERALIZED (OSTEO)ARTHRITIS 09/13/20 22 04/09/[address] completed 53 RHABDOMYOLYSIS 09/13/2004/09/[address] completed 54 TYPE 2 DIABETES MELLITUS WITH DIABETIC POLYNEUROPATHY 09/13/20 22 04/09/[address] completed 55 UNSPECIFIED OSTEOARTHRITIS, UNSPECIFIED SITE 09/13/20 22 09/13/[address] completed 56 VITAMIN D DEFICIENCY, UNSPECIFIED 09/13/20 22 04/09/[address] completed Reason for Referral No Reasons for Referral Entered Social History Social History Observation Description Start Date End Date Code Code System Current Smoking Status Tobacco smoking consumption unknown 162329145 SNOMED CT Sex Assigned At Female 1945 35490-1 [facility] Vital Signs Code Code System Vitals Name Values and Units Timing Information 82333-6 [facility] Pain Level Value=0.0 06/03/2023 29515-2 [facility] Weight Zskho=102.8 Units=Lbs 9279-1 [facility] Respiratory Rate Value=18.0 Units=/m in 04/17/2023 8462-4 [facility] Blood Pressure-Diastolic Value=68 Un its=mmHg 04/17/2023 8480-6 [facility] Blood Pressure-Systolic Yuhmw=232 Un its=mmHg 04/17/2023 8310-5 [facility] Body Temperature Value=97.5 Units= F 04/17/2023 8867-4 [facility] Heart rate Value=76.0 Units=/min 32914-9 [facility] O2 % BldC Oximetry Value=95.0 Units= % 04/17/2023 8302-2 [facility] Height Value=51.0 Units=Inches 04/08/2023
--- OUTSIDE RECORDS SUMMARY | 2025-03-10 16:39 | XMS_ITS | Clinical Summary ---
Author Organization [facility] Address [address] [place] [address] Phone Care Team Providers Care Warp Dresser Name Role Phone Nishi Michael MD Primary Care Provider [phone] Allergies Active Allergy Reactions Criticality Noted Date Comments Nsaids (Non-Steroidal Anti-I nflammatory Drug) Anaphylaxis High 03/16/2020 Penicillins Rash Low 06/08/2020 Sulfa (Sulfonamide Antibiotics) Rash Low 05/26 Medications alendronate (FOSAMAX) 70 mg tablet 02/03/20 20 Active DEXILANT 60 mg Delayed Release capsule 01/26/20 20 Active dicyclomine (BENTYL) 20 mg tablet 01/13/20 20 Active DULoxetine (CYMBALTA) 60 mg Capsule, Delayed Release(E.C.) 01/13/20 20 Active TRELEGY ELLIPTA 100-62.5-25 mcg Disk with Device 02/20/20 20 Active LINZESS 290 mcg capsule 01/13/20 20 Active AMITIZA 24 mcg Capsule 01/13/20 20 Active metoprolol tartrate (LOPRESSOR) 25 mg tablet 01/13/20 20 Active oxyCODONE myristate (Xtampza ER) 36 mg capsule,sprinkle ,ER 12hr tmprrIndications :Chronic bilateral low back pain, unspecified whether sciatica present TAKE 3 CAPSULES (108 MG) BY MOUTH EVERY 12 HOURS. MAX DAILY AMOUNT: 216 MG 180 Capsule 06/30/20 21 Active Xtampza ER 36 mg capsule,sprinkle ,ER 12hr tmprrIndications :Chronic bilateral low back pain, unspecified whether sciatica present TAKE THREE (3) CAPSULES (108 MG) BY MOUTH EVERY 12 HOURS. 180 Capsule 04/30/20 23 Active carisoprodoL (SOMA) 350 mg tabletIndication s:Chronic bilateral low back pain, unspecified whether sciatica present TAKE ONE TABLET BY MOUTH FOUR TIMES a DAY 120 Tablet 04/30/20 23 Active albuterol (PROVENTIL,COURTNEY PIPPA) 2.5 mg /3 mL (0.083 %) Solution for Nebulization Take 2.5 mg by inhalation. 12/21/19 23 Active ergocalciferol (VITAMIN D2) 50,000 unit capsule Take 50,000 Units by mouth see administration instructions. Take 1 capsule by mouth once a week Active empagliflozin (Jardiance) 10 mg tablet Take 10 mg by mouth daily in the morning. Active furosemide (LASIX) 20 mg tablet Take 20 mg by mouth 1 time daily as needed for Other (See Comment) (Leg swelling). Active ipratropium bromide (ATROVENT) 0.02 % Solution uses prn when sob 05/10/20 23 Active LORazepam (ATIVAN) 0.5 mg tablet Take 0.5 mg by mouth. 04/07/20 23 Active meclizine (ANTIVERT) 12.5 mg tablet TAKE 1 TABLET (12.5 MG TOTAL) BY MOUTH EVERY SIX (6) (SIX) HOURS NEEDED FOR DIZZINESS 01/22/20 24 Active promethazine (PHENERGAN) 25 mg tablet Take 25 mg by mouth. 09/26/20 23 Active fluticasone-umec lidinium-vilante rol (Trelegy Ellipta) 100-62.5-25 mcg Disk with Device Take 1 Puff by inhalation daily. 12/28/19 24 Active abaloparatide (Tymlos) 80 mcg (3,120 mcg/1.56 mL) Pen Injector Inject by subcutaneous injection. Active triamcinolone acetonide (KENALOG) 0.025 % Cream Apply to affected area 2 times daily. Active lidocaine (LIDODERM) 5 % Adhesive Patch, Medicated APPLY THREE (3) PATCHES BY TOPICAL ROUTE DAILY (MAY WEAR UP TO 12 HOURS) 90 Patch 11 04/23/20 24 Active oxyCODONE myristate (Xtampza ER) 36 mg capsule,sprinkle ,ER 12hr tmprrIndications :Chronic bilateral low back pain, unspecified whether sciatica present TAKE THREE (3) CAPSULES (108 MG) BY MOUTH EVERY 12 HOURS. 2.22 180 Capsule 02/06/20 25 Active carisoprodoL (SOMA) 350 mg tabletIndication s:Chronic low back pain, unspecified back pain laterality, unspecified whether sciatica present TAKE ONE TABLET BY MOUTH FOUR TIMES a DAY 2.22 120 Tablet 02/06/20 25 Active oxyCODONE-acetam inophen (PERCOCET) 10-325 mg TabletIndication s:Chronic bilateral low back pain, unspecified whether sciatica present TAKE TWO (2) TABLETS BY MOUTH EVERY FOUR (4) HOURS NEEDED FOR PAIN, SEVERE. MAX DAILY AMOUNT: 12 TABLETS 2.22 180 Tablet 02/06/20 25 Active Active Problems Problem Noted Date Diagnosed Date Chronic low back pain 03/16/2020 Fibromyalgia 03/16/2020 Cervical radiculopathy 03/16/2020 Peripheral neuropathy 03/16/2020 Encounters Date Type Department Care Team Description 02/04/2025 [facility] [address] [place] [phone] Mark Tolliver MD Chronic bilateral low back pain, unspecified whether sciatica present; Chronic low back pain, unspecified back pain laterality, unspecified whether sciatica present 01/14/2025 [facility] [address] [place] [phone] Mark Tolliver MD Chronic bilateral low back pain, unspecified whether sciatica present; Chronic low back pain, unspecified back pain laterality, unspecified whether sciatica present 01/13/2025 External Device Data [facility] Provider, Abstract 12/18/2024 External Device Data [facility] Provider, Abstract 12/17/2024 [facility] [address] [place] [phone] Mark Tolliver MD Chronic bilateral low back pain, unspecified whether sciatica present; Chronic low back pain, unspecified back pain laterality, unspecified whether sciatica present 12/16/2024 External Device Data [facility] Provider, Abstract from Last 3 Months Social History Tobacco Use Types Packs/Day Years Used Date Smoking Tobacco: Former Smokeless Tobacco: Former Alcohol Use Standard Drinks/Week Comments Not Currently 0 (1 standard drink = 0.6 oz pur e alcohol) Comments No Sex and Gender Information Value Date Recorded Sex Assigned at Not on file 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 Sex Female 5:58 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 Gender Identity Not on file Sexual Orientation Not on file Last Filed Vital Signs Vital Sign Reading Time Taken Comments Blood Pressure 119/62 02/18/2024 11:35 AM CDT Pulse 73 02/18/2024 11:35 AM CDT Temperature 36.2 C (97.2 F) 02/18/2024 11:35 AM CDT Respiratory Rate - - Oxygen Saturation - - Inhaled Oxygen Concentration - - Weight 47.6 kg (105 lb) 02/18/2024 11:35 AM CDT Height 137.2 cm (4' 6 ) 02/18/2024 11:35 AM CDT Body Mass Index 25.32 02/18/2024 11:35 AM CDT Plan of Treatment Health Maintenance Due Date Last Done Comments DIABETES ANNUAL FOOT EXAM 1962 DIABETES ANNUAL RETINAL EXAM 1962 DIABETES MICROALBUMIN ANNUAL SCREEN 1962 LDL CHOLESTEROL ANNUAL 1962 RSV VACCINE (60+ or ) (1 - 1-dose 75+ series) 2019 DIABETES HBA1C Q 6 MONTHS 12/14/2022 06/13/2022 INFLUENZA VACCINE (#1) 2024 , 09/07/2022, 08/12/2021, Additional history exists COVID-19 Vaccine (3 - 2023-2 5 season) 2024 02/16/2021, 01/19/2021 DTAP/TDAP/TD VACCINES (3 - T d or Tdap) 11/11/2031 11/11/2021, 10/28/2014 ZOSTER VACCINE Completed 05/07/2019, 01/25, 11/26/2007, Additional history exists PNEUMOCOCCAL VACCINE 50+ YEARS Completed 1 , 08/25/2015, 10/28/2014, Additional history exists OSTEOPOROSIS SCREENING Completed , 09/17/2023, 07/01/2020, Additional history exists Insurance MEDICARE PART A AND B Care Teams Warp Dresser Relationship Specialty Start Date End Date Nishi Michael MD [address] [place] [address] PCP - General Internal Medicine 06/08/20
--- OUTSIDE RECORDS SUMMARY | 2025-03-10 16:39 | XMS_ITS | Encounter Summary ---
Author Organization [facility] Address [address] [place] [address] Phone Care Team Providers Care Dog Catcher Name Role Phone Nishi Michael MD Primary Care Provider [phone] Reason for Visit * Reason Onset Date Comments Medication Refill 04/17/2023 Encounter Details Date Type Department Care Team (Late st Contact Info) Description 04/17/2023 Refill [facility] [address] [place] [phone] Jack Ramsay, PAC [address] [place], [place] [address] Medication Refill Social History Tobacco Use Types Packs/Day Years Used Date Smoking Tobacco: Never Assessed Comments Unknown Sex and Gender Information Value Date Recorded Sex Assigned at Not on file Legal Sex Female 7:30 PM CDT Gender Identity Not on file Sexual Orientation Not on file documented as of this encounter Plan of Treatment Not on file documented as of this encounter Visit Diagnoses Diagnosis Chronic pain syndrome- Primary documented in this encounter Care Teams Dog Catcher Relationship Specialty Start Date End Date Nishi Michael MD [address] [facility] [place] [id number] PCP - General Internal Medicine 08/02/16 documented as of this encounter
--- OUTSIDE RECORDS SUMMARY | 2025-03-10 16:39 | XMS_ITS | Encounter Summary ---
Author Organization [facility] Address [address] [place] [address] Phone Care Team Providers Care Rubber Tubing Splicer Name Role Phone Nishi Michael MD Primary Care Provider Encounter Details Date Type Department Care Team (Late st Contact Info) Description 04/19/2023 Nursing Facility [facility] [address] [place] [address] Jack Ramsay, PAC [address] [place], [place] [id number] Social History Tobacco Use Types Packs/Day Years Used Date Smoking Tobacco: Never Assessed Comments Unknown Sex and Gender Information Value Date Recorded Sex Assigned at Not on file Legal Sex Female 7:30 PM CDT Gender Identity Not on file Sexual Orientation Not on file documented as of this encounter Progress Notes * Jack Ramsay, ARNIE - 04/19/2023 2:04 PM CDT [facility] PROGRESS NOTE Shannon Sanchez is a 77 y.o. female at [facility] for rehabilitation. He was a resident here from 09/13/2022 through 10/06/2022 where she received group home and physical therapy after being hospitalized at [facility] for generalized weakness and falls. Her workup in the hospitalization was largely unremarkable other than mild traumatic rhabdomyolysis She was rehospitalized at [facility] from 04/02/2023 through 04/07/2023 after suffering a left femoral neck fracture that required surgical repair. Subjective: Interval History: Patient sitting comfortably in chair. Says that her sore throat and congestion are improving. She now has a cough that is productive. Feels like Mucinex is helping. No shortness of breath. Reports ortho follow-up went well. Robbin removed. Clear weight-bearing as tolerated. Is doing well with therapy. Says that her GERD is uncontrolled and requesting her home Dexilant be restarted which she has beenon for years. Overall is feeling ???better?? and has no other concerns. Past medical history: Chronic diastolic congestive heart failure Chronic pain syndrome Diabetes mellitus type 2 Previous CVA GERD Chronic abdominal pain COPD Chronic respiratory failure Osteoporosis Stricture pancreatic duct Social history: Retired History of cigarette abuse Review of Systems: A 14 point comprehensive review of systems was negative except what is documented in interval history above. Objective: Exam: Vital Signs: B/P: 128/68 Pulse: 76 Respirations: 18 Temperature: 97.5 General: Well developed, well nourished, in no distress - thin Skin: Normal appearance, normal turgor, no rashes 04/12: There are 2 areas of grouped vesicular lesions on erythematous base on upper buttocks with 1 on each buttock (crosses the midline). HEENT: Normocephalic, atraumatic, no flaring Eyes: nonicteric, intact extra occular movement, PERRL Neck: normal, supple, no lymphadenopathy Heart: regular rate and rhythm, S1, S2 normal, no murmur, click, rub or gallop Lungs: Normal respirations, no accessory muscle use, distant lung sounds especially in lung bases, wearing supplemental oxygen via nasal cannula Abdominal: soft, non-tender; bowel sounds normal; no masses, no organomegaly Extremities: no deformities, joint mobility appears intact, no clubbing Neuro: Non-focal, CN intact, sensory and motor intact Psychological: alert and oriented X3, appropriate mood and affect, Intact judgement and memory Lab Results: On 09/13 in the hospital, CBC with WBC of 3.7, hemoglobin 10.5, platelet count 392. BMP with otherwise within normal limits. 09/27/2022: CMP completely within normal limits. CBC with WBC of 3.2, hemoglobin 9.6 otherwise unremarkable. 04/06/2023: Upon discharge from hospital, BMP with potassium 3.0, sodium 131, chloride 90 otherwiseunremarkable. CBC with hemoglobin 8.6 otherwise unremarkable. 04/09/2023: BMP with glucose 115, sodium 134, chloride 95, calcium 8.1 otherwise within normal limits. CBC with hemoglobin 10.0 otherwise unremarkable. Imagin/4: EXAM DESCRIPTION: ?? US VEIN DUPLEX LOWER EXTREMITY BILATERAL COMPLETE REASON FOR STUDY: ?? Bilateral leg swelling, worse on the left. TECHNIQUE: Grayscale, color and spectral Doppler imaging of the deep venous system of the bilateral lower extremities was performed. Images stored on PACS. COMPARISON: ?? Leg ultrasound 01/28/2018 FINDINGS: The common femoral, common femoral-saphenous vein confluence, visualized profunda femoral, superficial femoral, and popliteal veins are readily compressible bilaterally with no intraluminal thrombus on matute scale images. ?? There is normal color and spectral Doppler signal, including augmentation. ?? Greater saphenous vein appears patent. Visualized calf veins are patent. IMPRESSION: ? 1. ?No lower extremity deep venous thrombosis in either leg. ?THIS IS AN ELECTRONICALLY VERIFIED FINAL REPORT 09/28/2022 10:25 AM - Electronically signed by ??Bryan Mederos M.D. Assessment/Plan: GERD 04/19: Uncontrolled. Home Dexilant restarted per patient's request. Viral URI 04/16: Supportive care, rest and hydration 04/19: Improving Acute herpes simplex type 2 on upper buttocks 04/12: 10 day course of valacyclovir ordered. She uses this at home with questionable dosing methodsas he uses it on a p.r.n. basis. Left femoral neck fracture Being followed by Ortho - will need to follow-up with Dr. Fernando Receiving nursing and physical therapy 04/19: Robbin recently removed. Weight-bearing as tolerated. Generalized weakness and deconditioning Receiving group home care and physical therapy rehabilitation Chronic pain syndrome Followed by pain management Dr. Jones Is on a very aggressive pain regimen but this will be continued while here 10/02/22 - Patient is interested in Getting off of these narcotic pain medications which I congratulated her on. We have provided information on [facility] which is a local opioid abuse rehabilitation program. Patient is looking into this and also looking into [facility] in [place]. 04/09/2023: Patient returns to facility on the same aggressive regimen she was on when she left last fall. 04/12/2023: Able to deescalate Percocet scheduling from 2 tab to 1 tab p.o. Q 6 hours p.r.n. Chronic diastolic congestive heart failure Continue metoprolol Continue spironolactone and Lasix During recent hospitalization it was felt that she was over diuresed and Lasix dose was decreased from 40 mg to 20 mg Well controlled Osteoporosis She has brought in her home tymlos and this will be continued COPD with chronic respiratory failure Wears 3 L supplemental oxygen at baseline Continue inhalers Stable, well controlled Stricture pancreatic duct Is followed by GI at [facility] Diabetes mellitus type 2 Diet-controlled Other chronic medical conditions include previous CVA, chronic abdominal pain, Continue home regimen Stable VTE Prophylaxis: Patient Low Risk I discussed advanced care planning with this patient. Disposition: 04/09: Patient tells me she is considering assisted living facility at discharge This note was dictated using M*Edxact fluency dictation system and there may be errors in electronics warfare technician. Despite proof reading the note, there may be mistakes and I apologize for those. By: ARNIE Washburn, 04/19/2023 2:04 PM CDT documented in this encounter Plan of Treatment Not on file documented as of this encounter Visit Diagnoses Not on filedocumented in this encounter Care Teams Rubber Tubing Splicer Relationship Specialty Start Date End Date Nishi Michael MD [address] [facility] [place] [id number] PCP - General Internal Medicine 08/02/16 documented as of this encounter
--- OUTSIDE RECORDS SUMMARY | 2025-03-10 16:39 | XMS_ITS | Encounter Summary ---
Author Organization [facility] Address [address] [place] [address] Phone Care Team Providers Care Sales Operations Assistant Name Role Phone Nishi Michael MD Primary Care Provider [phone] Encounter Details Date Type Department Care Team (Late st Contact Info) Description 04/16/2023 Nursing Facility [facility] [address] [place] [address] Jack Ramsay, PAC [address] [place], [place] [id number] Chronic pain syndrome (Primary Dx) Social History Tobacco Use Types Packs/Day Years Used Date Smoking Tobacco: Never Assessed Comments Unknown Sex and Gender Information Value Date Recorded Sex Assigned at Not on file Legal Sex Female 7:30 PM CDT Gender Identity Not on file Sexual Orientation Not on file documented as of this encounter Progress Notes * Jack Ramsay, ARNIE - 04/16/2023 11:43 AM CDT [facility] PROGRESS NOTE Shannon Sanchez is a 77 y.o. female at [facility] for rehabilitation. He was a resident here from 09/13/2022 through 10/06/2022 where she received shelter and physical therapy after being hospitalized at [facility] for generalized weakness and falls. Her workup in the hospitalization was largely unremarkable other than mild traumatic rhabdomyolysis She was rehospitalized at [facility] from 04/02/2023 through 04/07/2023 after suffering a left femoral neck fracture that required surgical repair. Subjective: Interval History: Patient sitting comfortably in chair. Has ortho follow-up tomorrow. Is about to be started on Lyrica, however she says that she is allergic to Lyrica. Her reaction is shortness of breath and swelling. Similar reaction to gabapentin. She is requesting the Lyrica be discontinued so I will discontinue it now. Says she has had a mild sore throat and both of her ears have felt clogged for the last 1 week. Do other upper respiratory symptoms. No systemic symptoms. Has no concerns otherwise. Past medical history: Chronic diastolic congestive heart failure Chronic pain syndrome Diabetes mellitus type 2 Previous CVA GERD Chronic abdominal pain COPD Chronic respiratory failure Osteoporosis Stricture pancreatic duct Social history: Retired History of cigarette abuse Review of Systems: A 14 point comprehensive review of systems was negative except what is documented in interval history above. Objective: Exam: Vital Signs: B/P: 112/76 Pulse: 80 Respirations: 20 Temperature: 98.1 General: Well developed, well nourished, in no [...] hemoglobin 10.5, platelet count 392. BMP with [id number] otherwise within normal limits. 09/27/2022: CMP completely [...] Electronically signed by ??Bryan Mederos M.D. Assessment/Plan: Viral URI 04/16: Supportive care, rest and hydration Acute herpes simplex type 2 on upper buttocks 04/12: 10 day course of valacyclovir ordered. She uses this at home with questionable dosing methodsas he uses it on a p.r.n. basis. Left femoral neck fracture Being followed by Ortho - will need to follow-up with Dr. Fernando Receiving nursing and physical therapy Generalized weakness and deconditioning Receiving shelter care and physical therapy rehabilitation Chronic pain syndrome Followed by pain management Dr. Jones Is on a very aggressive pain regimen but this will be continued while here 10/02/22 - Patient is interested in Getting off of these narcotic pain medications which I congratulated her on. We have provided information on [facility] which is a local opioid abuse rehabilitation program. Patient is looking into this and also looking into [facility] in [place]. 04/09/2023: Patient returns to facility on the [...] pancreatic duct Is followed by GI at [facility] Diabetes mellitus type 2 Diet-controlled Other chronic medical conditions include previous CVA, GERD, chronic abdominal pain, Continue home regimen Stable VTE Prophylaxis: Patient Low Risk I discussed advanced care planning with this patient. Disposition: 04/09: Patient tells me she is considering assisted living facility at discharge This note was dictated using Soapets fluency dictation system and there may be errors in power grader operator. Despite proof reading the note, there may be mistakes and I apologize for those. By: Jack Ramsay, PAC, 04/16/2023 11:43 AM CDT documented in this encounter Plan of Treatment Not on file documented as of this encounter Visit Diagnoses Diagnosis Chronic pain syndrome- Primary documented in this encounter Care Teams Sales Operations Assistant Relationship Specialty Start Date End Date Nishi Michael MD [address] [facility] [place] [id number] PCP - General Internal Medicine 08/02/16 documented as of this encounter
--- OUTSIDE RECORDS SUMMARY | 2025-03-10 16:39 | XMS_ITS | Encounter Summary ---
Author Organization [facility] Address [address] [place] [address] Phone Care Team Providers Care Color Worker Name Role Phone Nishi Michael MD Primary Care Provider [phone]- [phone] Encounter Details Date Type Department Care Team (Late st Contact Info) Description 05/01/2023 Nursing Facility [facility] [address] [place] [address] Jack Ramsay, PAC [address] [place], [place] [id number] Social History Tobacco Use Types Packs/Day Years Used Date Smoking Tobacco: Never Assessed Comments Unknown Sex and Gender Information Value Date Recorded Sex Assigned at Not on file Legal Sex Female 7:30 PM CDT Gender Identity Not on file Sexual Orientation Not on file documented as of this encounter Progress Notes * Jack Ramsay, ARNIE - 05/01/2023 11:58 AM CDT [facility] PROGRESS NOTE Shannon Sanchez is a 77 y.o. female at [facility] for rehabilitation. He was a resident here from 09/13/2022 through 10/06/2022 where she received nursing home and physical therapy after being hospitalized at [facility] for generalized weakness and falls. Her workup in the hospitalization was largely unremarkable other than mild traumatic rhabdomyolysis She was rehospitalized at [facility] from 04/02/2023 through 04/07/2023 after suffering a left femoral neck fracture that required surgical repair. Subjective: Interval History: Patient is sitting comfortably in her chair. Having some pain around her left hip since she just finished therapy, overall feels like she is improving. Makes note of having double vision. It is transient, lasting about less than 1 minute when it happens. seems to be worse in the mornings. Has been present for roughly 4 months. He says that she was seen by an optical engineer for this but the optical engineer could not find a cause and did not have any recommendations. Seems to be binocular as she says when she closes 1 eye it resolves. I discussed with the patient that since the optical engineer had reassuring exam that this is most likely not and anatomic issue and a normal optical engineer exam should rule out quite a few of the neurologic causes. My main concern would be that this is a side effect of her aggressive opioid regimen. I discussed deescalating her opioids and seeing if her intermittent diplopia resolves however shepolitely refuses. After shared decision-making we will just monitor her symptoms for now. Can consider neurology referral or repeat ophthalmology consultation if symptoms get worse. Nursing staff with no acute concerns about the patient. Past medical history: Chronic diastolic congestive heart failure Chronic pain syndrome Diabetes mellitus type 2 Previous CVA GERD Chronic abdominal pain COPD Chronic respiratory failure Osteoporosis Stricture pancreatic duct Social history: Retired History of cigarette abuse Review of Systems: A 14 point comprehensive review of systems was negative except what is documented in interval history above. Objective: Exam: Vital Signs: Recent vital signs in the electronic medical records at the nursing facility were reviewed and wereunremarkable. General: Well developed, well nourished, in no distress - thin Skin: Normal appearance, normal turgor, no rashes 18: There are 2 areas of grouped vesicular [...] hemoglobin 10.5, platelet count 392. BMP with [id number] otherwise within normal limits. 09/27/2022: CMP completely [...] Electronically signed by ??Bryan Mederos M.D. Assessment/Plan: Transient binocular diplopia Ophthalmology workup unremarkable Could be side effect from too much opioids and other sedating medications 05/01: After discussion with patient, will continue to watch symptoms for now. Generalized weakness and deconditioning Receiving nursing home care and physical therapy rehabilitation 05/01: Improving GERD 04/19: Uncontrolled. Home Dexilant restarted per patient's request. 04/24: Better Viral URI 04/16: Supportive care, rest and [...] 04/19: Robbin recently removed. Weight-bearing as tolerated. Chronic pain syndrome Followed by pain management Dr. Jones Is on a very aggressive pain regimen but this will be continued while here 10/02/22 - Patient is interested in Getting off of these narcotic pain medications which I congratulated her on. We have provided information on [facility] which is a local opioid abuse rehabilitation program. Patient is looking into this and also looking into [facility] in [place]. 04/09/2023: Patient returns to facility on the [...] pancreatic duct Is followed by GI at [facility] Diabetes mellitus type 2 Diet-controlled Other chronic medical conditions include previous CVA, chronic abdominal pain, Continue home regimen Stable VTE Prophylaxis: Patient Low Risk I discussed advanced care planning with this patient. Disposition: 04/09: Patient tells me she is considering assisted living facility at discharge This note was dictated using M*Modal fluency dictation system and there may be errors in facilities technician. Despite proof reading the note, there may be mistakes and I apologize for those. By: ARNIE Washburn, 05/01/2023 11:58 AM CDT documented in this encounter Plan of Treatment Not on file documented as of this encounter Visit Diagnoses Not on filedocumented in this encounter Care Teams Color Worker Relationship Specialty Start Date End Date Nishi Michael MD [address] [facility] [place] [address] PCP - General Internal Medicine 08/02/16 documented as of this encounter
--- OUTSIDE RECORDS SUMMARY | 2025-03-10 16:39 | XMS_ITS | Clinical Summary ---
Author Organization [facility] [employer] Address [address] [place] [address] Care Team Providers Care Bridge/Structure Inspection Team Leader Name Role Phone Unavailable Primary Care Provider Unavailabl e Source Comments [facility],non-owned Affiliates and Associated Physician Practices is amultiple site organization consisting of ambulatory clinics and hospital sitesin [place], [place], [place] and [place]. This disclosure is being madepursuant to the Care Everywhere program and may not contain all information available regarding this patient. 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 Gender Identity Not on file Sexual Orientation Not on file Plan of Treatment Health Maintenance Due Date Last Done Comments MEDICARE AWV 12 MONTHS 1944 DTAP/TDAP/TD VACCINES (1 - Tdap) 1963 PNEUMOCOCCAL VACCINE 50+ (1 of 1 - PCV) 1994 ZOSTER VACCINE (1 of 2) 1994 Respiratory Syncytial Virus (RSV) Vaccine Pt: or over 60 yrs (1 - 1-dose 75+ series) 2019 COVID-19 VACCINE ( season) 2024 09/30/2024, 02/16/2021, 01/19/2021 DEPRESSION SCREENING 11/26/2024 BONE DENSITY TESTING Completed 09/17/2023, 07/01/20 20 INFLUENZA VACCINE Completed 08/27/2024, , 08/27/2019, Additional history exists HEPATITIS B VACCINE Aged Out No longe r eligible based on patient's age to complete this topic HIB VACCINE Aged Out No longer eligi ble based on patient's age to complete this topic HPV VACCINE Aged Out No longer eligi ble based on patient's age to complete this topic MENINGOCOCCAL (Group B) VACCINE SHARED DECISION-MAKING Aged Out No longer eligible based on patient's age to complete this topic MENINGOCOCCAL GROUPS A/C/Y/W VACCINE Aged Out No longer eligible based on patient's age to complete this topic Insurance MEDICARE [place]ICAID - [place]
--- OUTSIDE RECORDS SUMMARY | 2025-03-10 16:39 | XMS_ITS | Encounter Summary ---
Author Organization [facility] Address [address] [place] [address] Phone Care Team Providers Care Driller Operator Name Role Phone Nishi Michael MD Primary Care Provider [phone] Encounter Details Date Type Department Care Team (Late st Contact Info) Description 04/12/2023 Nursing Facility [facility] [address] [place] [address] Jack Ramsay, PAC [address] [place], [place] [id number] Social History Tobacco Use Types Packs/Day Years Used Date Smoking Tobacco: Never Assessed Comments Unknown Sex and Gender Information Value Date Recorded Sex Assigned at Not on file Legal Sex Female 7:30 PM CDT Gender Identity Not on file Sexual Orientation Not on file documented as of this encounter Progress Notes * Jack Ramsay, ARNIE - 04/12/2023 11:32 AM CDT [facility] PROGRESS NOTE Shannon Sanchez is a 77 y.o. female at [facility] for rehabilitation. He was a resident here from 09/13/2022 through 10/06/2022 where she received retirement and physical therapy after being hospitalized at [facility] for generalized weakness and falls. Her workup in the hospitalization was largely unremarkable other than mild traumatic rhabdomyolysis She was rehospitalized at [facility] from 04/02/2023 through 04/07/2023 after suffering a left femoral neck fracture that required surgical repair. Subjective: Interval History: Patient sitting comfortably in chair. She is requesting her valacyclovir because she feels like she is having a rash on her buttocks. Shesays this rash is uncomfortable and pruritic and she 1st started on the symptoms 2-3 days ago. She says that she is prescribed oral valacyclovir for this from her PCP about 3 months ago and she uses it on an as- needed basis. However she then says that her PCP never actually looked at the rash. She is also requesting that her Mucinex be restarted. She says that she takes Mucinex b.i.d. at home scheduled as part of her COPD regimen. Yesterday the family medicine chair deescalated her Percocet regimen. Nurse tells me that regimen went from an aggressive p.r.n. dosing to a scheduled once a day dosing which is not typical. Patient very upsetabout this. She is agreeable to other regimen be switched back to p.r.n. and a decreased dose. Past medical history: Chronic diastolic congestive heart [...] hemoglobin 10.5, platelet count 392. BMP with [id number] otherwise within normal limits. 09/27/2022: CMP completely [...] Electronically signed by ??Bryan Mederos M.D. Assessment/Plan: Acute herpes simplex type 2 on upper buttocks 04/12: 10 day course of valacyclovir ordered. She uses this at home with questionable dosing methodsas he uses it on a p.r.n. basis. Left femoral neck fracture Being followed by Ortho - will need to follow-up with Dr. Fernando Receiving nursing and physical therapy Generalized weakness and deconditioning Receiving retirement care and physical therapy rehabilitation Chronic pain syndrome Followed by pain management Dr. Jones Is on a very aggressive pain regimen but this will be continued while here 11/7/22 - Patient is interested in Getting off of these narcotic pain medications which I congratulated her on. We have provided information on [facility] which is a local opioid abuse rehabilitation program. Patient is looking into this and also looking into [facility] in [place]. 04/09/2023: Patient returns to facility on the [...] pancreatic duct Is followed by GI at [facility] Diabetes mellitus type 2 Diet-controlled Other chronic medical conditions include previous CVA, GERD, chronic abdominal pain, Continue home regimen Stable VTE Prophylaxis: Patient Low Risk I discussed advanced care planning with this patient. Disposition: 04/09: Patient tells me she is considering assisted living facility at discharge This note was dictated using M*Modal fluency dictation system and there may be errors in spring tier. Despite proof reading the note, there may be mistakes and I apologize for those. By: Jack Ramsay, ARNIE, 04/12/2023 11:32 AM CDT documented in this encounter Plan of Treatment Not on file documented as of this encounter Visit Diagnoses Not on filedocumented in this encounter Care Teams Driller Operator Relationship Specialty Start Date End Date Nishi Michael MD [address] [facility] [place] [address] PCP - General Internal Medicine 08/02/16 documented as of this encounter
--- OUTSIDE RECORDS SUMMARY | 2025-03-10 16:39 | XMS_ITS | Patient Health Record ---
Author Organization [facility] Address [address] [place] [address] Care Team Providers Care Spool Fixer Name Role Phone Alec COREY, Nishi Primary Care Provider Juancarlos MORALES NP, CHACHA Unavailable ALLERGIES Allergen (clinical drug ingredient) Drug/Non [...] Unknown Drug Allergy Activ e REASON FOR REFERRAL No Information MEDICATIONS Medication SIG (Take, Route, Frequency, Duration) Notes Start Date End Date Status Ketoconazole 2 % as directed Externally Active Cholecalciferol 50 MCG (1999 UT) 1 capsule Orally Once a day Active Senna Plus 8.6-50 MG 1 tablet in the evening as needed Orally Once a day Active Dicyclomine HCl 20 MG TAKE ONE TABLET BY MOUTH FOUR TIMES a DAY 30 for 30 Active ProAir HFA 108 (90 Base) MCG/ACT 1 puff as needed Inhalation every 4 hrs Active Dexilant 60 MG TAKE ONE (1) CAPSULE BY MOUTH DAILY for 90 Active Tevmiqrpdys-Cnkrzxrja-Fvhc nt 100-62.5-25 MCG/INH 1 puff Inhalation Once a day Active Lidocaine 5 % 1 patch to skin carly ve after 12 hours Externally Once a day Active Carisoprodol 350 MG 1 tablet as needed Orally Four times a day Active DULoxetine HCl 60 MG 1 capsule Orally On ce a day for 30 day(s) Active Abaloparatide 3120 MCG/1.56ML as directed Subcutaneous Active Amitiza 24 MCG 1 capsule with food Orally Twice a day for 30 day(s) Active Acetaminophen 325 MG 1 tablet as needed Orally every 4 hrs Active Promethazine HCl 25 MG 1 tablet as neede d Orally every 12 hrs for 30 day(s) Active Metoprolol Tartrate 25 MG 1 tablet with food Orally Twice a day for 30 day(s) Active oxyCODONE-Acetaminophen 10-325 MG 1 tablet as needed Orally every 6 hrs Active Vitamin B12 100 MCG as directed Orally Active Movantik 12.5 MG 1 tablet in the morning Orally Once a day for 30 day(s) 09/02/2020 Not-Taking Tymlos 3120 MCG/1.56ML as directed Subcutaneous Active MiraLax 17 GM 1 packet mixed with 8 ounces of fluid Orally Once a day for 30 day(s) 10/18/2020 Not-Taking OxyCONTIN 80 MG 1 tablet Orally ever y 12 hrs Not-Taking Vitamin D3 8616003 UNIT/GM as directed Active Furosemide 20 MG 1 tablet Orally twic e a week Not-Taking Jublia 10 % 1 application to affected area Externally Once a day Not-Taking Metoclopramide HCl 5 MG as directed Orally Not-Taking Linzess 290 MCG TAKE ONE CAPSULE BY MOUTH DAILY for 30 Not-Taking Alendronate Sodium 70 MG 1 tablet Orally for 30 day(s) Not-Taking SOCIAL HISTORY Tobacco Use: Social History Observation [...] Tobacco Non-User Ex -moderate cigarette smoker (10-19/day) PROBLEMS Problem Type ICD Code Onset Dates Problem Status W/U Status Risk SNOMED Code Notes Problem Constipation, unspecified (K59.00) Active confirmed Constipation (96429439) Problem 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 (00317325) VITAL SIGNS Heart Rate 76 /min 05/26/2024 did not weigh a s she was not ayad to get out of chair Blood pressure diastolic 73 mm Hg 05/26/2024 did not weigh as she was not ayad to get out of chair Height 58 in 05/26/2024 did not weigh a s she was not ayad to get out of chair Blood pressure systolic 130 mm Hg 05/26/2024 did not weigh as she was not ayad to get out of chair Weight 115 lbs 05/26/2024 did not weigh a s she was not ayad to get out of chair BMI 24.03 kg/m2 05/26/2024 did not weigh a s she was not ayad to get out of chair Encounters Encounter Location Date Provider Diagnosis [facility] [address] [place] [address] 05/26/2024 CHACHA ANDREW Right upper quadrant pain R10.11 ; Spasm of sphincter of Oddi K83.4 and Anemia, unspecified D64.9 ASSESSMENTS Encounter Date Diagnosis Assessment Notes Treatment Notes Treatment Clinical Notes Section Notes 05/26/2024 Spasm of sphincter of Oddi (ICD-10 - K83.4) 05/26/2024 Right upper quadrant pain (ICD-10 - R10.11) discussed possible ERCP but informed her that due to her current status that it may be more detrimental due to her comorbidities. Script for 0..5mg lorazepam PRN #10 0 refill given at this time as this provides relief 05/26/2024 Anemia, unspecified (ICD-10 - D64.9) recommended [...] of compliance with plan. PLAN OF TREATMENT Pending Test Test Name Order Date CT Scan : Abdomen and Pelvis with contra st 05/07/2019 Amylase, Serum 05/07/2019 Lipase, Serum 05/07/2019 Comp. Metabolic Panel (14) 05/07/2019 Endoscopic Retrograde Cholangiopancreato graphy (ERCP) 07/03/2022 MRI : Abdomen with and without Contrast 02/08/2024 Insurance Providers Payer Name Payer Address Payer Phone Subscriber Number Group Number Insured Name Patient Relationship to Insured Coverage Start Date Coverage End Date Medicare-M O Medicare [address] [address] [place], [place] [id number] Shannon Sanchez Self - patient is the insured Medicaid-I L Medicaid [address] [address] [place], [place] [id number] Shannon Sanchez Self - patient is the insured MEDICAL (GENERAL) HISTORY Medical History History ICD Code GERD Biliary dyskinesia SOD/papillary stenosis s/p ERCP Acute pancreatitis Chronic abdominal pain Fibromyalgia Migraines COPD on continuous supplemental oxygen v ia [place] Arthritis Type 2 diabetes Gastroparesis DJD Cholelithiasis Neuropathy Hx colon polyps Right renal atrophy CHF Pulmonary nodule Opioid induced constipation Surgical History Surgery Date(Month/Year) EGD/Colonoscopy Federico 2012 ERCP Aliperti 03/13/11 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 Stents removed 03/15/11. ERCP 02/03/2000 Aliperti goyo iary stenosis s/p biliary sphincterotomy. EGD 1994 Colonoscopy 2004 Tubal ligation 1989 Appendectomy/open cholecystectomy 1989 Exploratory lap 1975 Colonoscopy reportedly 2017 w/polyps ERCP Aliperti- ext of previo us sphincterotomies, dual stenting performed and removed on 07/0707/05/22
--- OUTSIDE RECORDS SUMMARY | 2025-03-10 16:39 | XMS_ITS | Encounter Summary ---
Author Organization [facility] Address [address] [place] [address] Phone Care Team Providers Care Canoe Maker Name Role Phone Nishi Michael MD Primary Care Provider Encounter Details Date Type Department Care Team (Late st Contact Info) Description 05/04/2023 Nursing Facility [facility] [address] [place] [address] Jack Ramsay, PAC [address] [place], [place] [id number] Social History Tobacco Use Types Packs/Day Years Used Date Smoking Tobacco: Never Assessed Comments Unknown Sex and Gender Information Value Date Recorded Sex Assigned at Not on file Legal Sex Female 7:30 PM CDT Gender Identity Not on file Sexual Orientation Not on file documented as of this encounter Progress Notes * Jack Ramsay, ARNIE - 05/04/2023 1:32 PM CDT [facility] PROGRESS NOTE Shannon Sanchez is a 77 y.o. female at [facility] for rehabilitation. He was a resident here from 09/13/2022 through 10/06/2022 where she received fpc and physical therapy after being hospitalized at [facility] for generalized weakness and falls. Her workup in the hospitalization was largely unremarkable other than mild traumatic rhabdomyolysis She was rehospitalized at [facility] from 04/02/2023 through 04/07/2023 after suffering a left femoral neck fracture that required surgical repair. Subjective: Interval History: Patient is lying comfortably in her bed. Says she feels ???better?? . She has no acute symptoms or concerns at this time. Her skilled therapy is ending today. Therapy is saying that she has done well and she agrees. She was just evaluated by [facility] and she does found out that she was accepted there and she isexcited about this. She is thinking she was stay in the facility until she is able to get moved into [facility], does not have an official discharge/move in date yet. Nursing staff with no acute concerns about [...] hemoglobin 10.5, platelet count 392. BMP with [id number] otherwise within normal limits. 09/27/2022: CMP completely [...] Electronically signed by ??Bryan Mederos M.D. Assessment/Plan: Generalized weakness and deconditioning Receiving fpc care and physical therapy rehabilitation 05/04: Continues to improve. Skilled services ending today. Transient binocular diplopia Ophthalmology workup unremarkable Could be side effect from too much opioids and other sedating medications 05/01: After discussion with patient, will continue to watch symptoms for now. GERD 04/19: Uncontrolled. Home Dexilant restarted per [...] Fernando Receiving nursing and physical therapy 04/19: Kanona recently removed. Weight-bearing as tolerated. Chronic pain syndrome Followed by pain management Dr. Chala Is on a very aggressive pain regimen but this will be continued while here 10/02/22 - Patient is interested in Getting off of these narcotic pain medications which I congratulated her on. We have provided information on [facility] which is a local opioid abuse rehabilitation program. Patient is looking into this and also looking into [facility] in [place]. 04/09/2023: Patient returns to facility on the [...] pancreatic duct Is followed by GI at [facility] Diabetes mellitus type 2 Diet-controlled Other chronic medical conditions include previous CVA, chronic abdominal pain, Continue home regimen Stable VTE Prophylaxis: Patient Low Risk I discussed advanced care planning with this patient. Disposition: 04/09: Patient tells me she is considering assisted living facility at discharge 05/04/2023: Skilled therapy ending today. She has just been accepted at [facility] and she is planning on going there. Does not have an official discharge date from facility yet. This note was dictated using M*Modal fluency dictation system and there may be errors in business office specialist. Despite proof reading the note, there may be mistakes and I apologize for those. By: ARNIE Washburn, 05/04/2023 1:32 PM CDT documented in this encounter Plan of Treatment Not on file documented as of this encounter Visit Diagnoses Not on filedocumented in this encounter Care Teams Canoe Maker Relationship Specialty Start Date End Date Nishi Michael MD [address] [facility] [place] [id number] PCP - General Internal Medicine 08/02/16 documented as of this encounter
--- OUTSIDE RECORDS SUMMARY | 2025-03-10 16:39 | XMS_ITS | Encounter Summary ---
Author Organization [facility] Address [address] [place] [address] Phone Care Team Providers Care Roller Skate Assembler Name Role Phone Nishi Michael MD Primary Care Provider Encounter Details Date Type Department Care Team (Late st Contact Info) Description 04/09/2023 Nursing Facility [facility] [address] [place] [address] Jack Ramsay, PAC [address] [place], [place] [address] Social History Tobacco Use Types Packs/Day Years Used Date Smoking Tobacco: Never Assessed Comments Unknown Sex and Gender Information Value Date Recorded Sex Assigned at Not on file Legal Sex Female 7:30 PM CDT Gender Identity Not on file Sexual Orientation Not on file documented as of this encounter Progress Notes * Jack Ramsay, ARNIE - 04/09/2023 2:28 PM CDT [facility] PROGRESS NOTE Shannon Sanchez is a 77 y.o. female at [facility] for rehabilitation. He was a resident here from 09/13/2022 through 10/06/2022 where she received custodial and physical therapy after being hospitalized at [facility] for generalized weakness and falls. Her workup in the hospitalization was largely unremarkable other than mild traumatic rhabdomyolysis She was rehospitalized at [facility] from 04/02/2023 through 04/07/2023 after suffering a left femoral neck fracture that required surgical repair. Subjective: Interval History: I am familiar with this patient as she was a patient here last fall. She is sitting in her wheelchair. She is feeling nauseous and requesting a promethazine which I conveyed her request to the nursing staff. She is wanting to make sure she gets all of her chronic narcotic pain medicines that she takes at home. She has already had her daughter bring them in from and they have been given to the nurse. She has been taking high-dose narcotics for over 20 years now and the regimen that she is on now is verystrong. She denies any other acute symptoms or concerns. She is hopeful that her rehabilitation goes well. Considering [facility] at discharge. Past medical history: Chronic diastolic congestive heart failure Chronic pain syndrome Diabetes mellitus type 2 Previous CVA GERD Chronic abdominal pain COPD Chronic respiratory failure Osteoporosis Stricture pancreatic duct Social history: Retired History of cigarette abuse Review of Systems: A 14 point comprehensive review of systems was negative except what is documented in interval history above. Objective: Exam: Vital Signs: B/P: 112/72 Pulse: 88 Respirations: 20 Temperature: 99.1 General: Well developed, well nourished, in no distress - thin Skin: Normal appearance, normal turgor, no rashes HEENT: Normocephalic, atraumatic, no flaring Eyes: nonicteric, [...] Electronically signed by ??Bryan Mederos M.D. Assessment/Plan: Left femoral neck fracture Being followed by Ortho - will need to follow-up with Dr. Fernando Receiving nursing and physical therapy Generalized weakness and deconditioning Receiving custodial care and physical therapy rehabilitation Chronic diastolic congestive heart failure Continue metoprolol Continue spironolactone and Lasix During recent hospitalization it was felt that she was over diuresed and Lasix dose was decreased from 40 mg to 20 mg Well controlled Chronic pain syndrome Followed by pain management Dr. Jones Is on a very aggressive pain regimen but this will be continued while here 10/02/22 - Patient is interested in Getting off of these narcotic pain medications which I congratulated her on. We have provided information on [facility] which is a local opioid abuse rehabilitation program. Patient is looking into this and also looking into [facility] in [place]. 04/09/2023: Patient returns to facility on the same aggressive regimen she was on when she left last fall. Osteoporosis She has brought in her home tymlos and this will be continued COPD with chronic respiratory failure Wears 3 L supplemental oxygen at baseline Continue inhalers Stable, well controlled Stricture pancreatic duct Is followed by GI at [facility] Diabetes mellitus type 2 Diet-controlled Other chronic medical conditions include previous CVA, GERD, chronic abdominal pain, Continue home regimen Stable VTE Prophylaxis: Patient Low Risk I discussed advanced care planning with this patient. Disposition: 04/09: Patient tells me she is considering assisted living facility at discharge This note was dictated using M*Modal fluency dictation system and there may be errors in milled rubber tender. Despite proof reading the note, there may be mistakes and I apologize for those. By: ARNIE Washburn, 04/09/2023 2:29 PM CDT documented in this encounter Plan of Treatment Not on file documented as of this encounter Visit Diagnoses Not on filedocumented in this encounter Care Teams Roller Skate Assembler Relationship Specialty Start Date End Date Nishi Michael MD [address] [facility] [place] [id number] PCP - General Internal Medicine 08/02/16 documented as of this encounter
--- OUTSIDE RECORDS SUMMARY | 2025-03-10 16:39 | XMS_ITS | Encounter Summary ---
Author Organization [facility] Healthcare Address [address] [place] [address] Care Team Providers Care Audio Visual Project Manager Name Role Phone Nishi Michael MD Primary Care Provider + [phone] Mark Tolliver MD Unavailable [phone] Ceasar Yang MD Unavailable [phone] Ave Collado MD Unavailable [phone] Tyshawn Ulloa MD Unavailable [phone] Alli Caballero MD Unavailable [phone] Maikel Mckeon MD Unavailable [phone] Rosie Velasquez MD Unavailable [phone] John Pete MD Unavailable [phone] Yuri Akers MD Unavailable [phone] Olivia Romano LPN Unavailable [phone] Olivia Romano LPN Unavailable [phone] Olivia Romano LPN Unavailable [phone] Blaze Fernando MD Unavailable [phone] Deshaun Xavier MD Unavailable Dylan Gillespie MD Unavailable [phone] Michael Ramsey MD Unavailable [phone] Yoly Ramirez MD Unavailable Filipe Monsalve DPM Unavailable [phone] Nataliya MillsW Unavailable Unavaila ble Encounter Details Date Type Department Care Team (Late st Contact Info) Description 04/26/2020 Telephone [facility] [address] [place] [address] Brad Alicea, RT Social History Tobacco Use Types Packs/Day [...] on file Legal Sex Female 8:25 AM NOZZLE AND SLEEVE WORKER Gender Identity Not on file Sexual Orientation [...] result. 09/21/2020 09/21/2020 10/05/2020 3:0 5 AM NOZZLE AND SLEEVE WORKER COVID: Suspected 12/03/2022 12/03/2022 12/03/2022 1:09 PM NOZZLE AND SLEEVE WORKER COVID: Suspected 02/02/2023 02/02/2023 02/02/2023 8:56 AM NOZZLE AND SLEEVE WORKER COVID19 Comment:Patient has documented SpO2 < 94% [...] eye protection or goggles. Precautions 07/26/23. Contact Claims Service Representative if patient worsens. ALICIA Hamilton 07/17/23 07/16/2023 07/17/2023 07/26/2023 3:05 AM C DT documented as of this encounter Care Teams Audio Visual Project Manager Relationship Specialty Start Date End Date Nishi Michael MD PCP - General 02/23/17 [place] [address] [facility] [address] [place] [address] Physical Medicine and Rehabilitation 09/07/17 [place] [address] [facility] [address] [place] [address] Turkey Farmer 09/07/[address] [place] [address] [facility] 4 [place] [address] Nephrology 09/07/17 10/15/24 [place] [address] [facility] [address] [place] [address] Pulmonary Disease 09/07/17 03/13/23 [place] [address] [place] [address] Gastroenterology 09/07/17 12/17/22 Maikel Mckeon MD [address] [place] [address] [place] [address] Referring Physician Ophthalmology 03/11/18 Rosie Velasquez MD [address] [facility] [place] [address] Consulting Physician Cardiology 05/25/20 John Pete MD [address] [place] [address] Consulting Physician Gastroenterology 02/01/22 08/29/23 Yuir Akers MD [address] [facility] [address] [place] [address] Consulting Physician Gastroenterology 07/07/22 Olivia Romano LPN [address] [place] [address] [facility] [address] [place] [address] [employer] Installer 07/14/22 08/28/22 Olivia Romano LPN [address] [place] [address] [facility] [address] [place] [address] [employer] Installer 09/14/22 10/10/22 Oliiva Romano LPN [address] [place] [address] [facility] [address] [place] [address] [employer] Installer 09/14/22 09/14/22 Blaze Fernando MD [address] [place] [address] DR MAKAYLA Freeman [facility] [address] [place] [address] Surgeon Orthopedic Surgery 12/06/22 Deshaun Xavier MD [address] [place] [address] [address] [place] [address] Consulting Physician Pulmonary Disease 03/14/23 Dylan Gillespie MD [address] [place] [address] Consulting Physician Gastroenterology 06/14/23 Michael Ramsey MD [address] [place] [address] Consulting Physician Cardiology 07/12/23 10/15/24 Yoly Ramirez MD [address] [place] [address] [address] [place] [address] Consulting Physician Gastroenterology 08/30/23 Filipe Monsalve DPM [address] [place] [address] Consulting Physician Orthotics 04/09/24 Nataliya Mills LCSW Estate Manager 10/17/24 11/23/24 documented as of this encounter
--- OUTSIDE RECORDS SUMMARY | 2025-03-10 16:39 | XMS_ITS | Encounter Summary ---
Author Organization [facility] Address [address] [place] [address] Phone Care Team Providers Care Insurance Salesman Name Role Phone Nishi Michael MD Primary Care Provider [phone] Encounter Details Date Type Department Care Team (Late st Contact Info) Description 10/06/2022 Nursing Facility [facility] [address] [place] [address] Jack Ramsay PAC [address] [place], [place] [id number] Social History Tobacco Use Types Packs/Day Years Used Date Smoking Tobacco: Never Assessed Comments Unknown Sex and Gender Information Value Date Recorded Sex Assigned at Not on file Legal Sex Female 7:30 PM CDT Gender Identity Not on file Sexual Orientation Not on file documented as of this encounter Progress Notes * Jack Ramsay PAC - 10/06/2022 3:[address] [facility] DISCHARGE SUMMARY Name: Shannon Sanchez Age: 77 y.o. : 1945 Attending Physician: No att. providers found Admission Date/Time: 09/13/2022 Expected Discharge Date: 10/06/2022 Primary Care Physician: Nishi Michael MD Discharging Provider: ARNIE Washburn INSTRUCTIONS FOR PHYSICIANS ON FOLLOW UP AFTER DISCHARGE: Follow-up with PCP in 1-2 weeks Discharge Instructions: Discharge Condition: improved Disposition: Home Diet: Cardiac Diet and Diabetic Diet Activity: activity as tolerated Discharge Diagnoses: Generalized weakness and deconditioning, chronic diastolic congestive heart failure, chronic pain syndrome , osteoporosis , COPD with chronic respiratory failure, CVA, GERD, chronic abdominal pain, pancreatic duct stricture Admitting Diagnoses: Generalized weakness and deconditioning, chronic diastolic congestive heart failure, chronic pain syndrome , osteoporosis , COPD with chronic respiratory failure, CVA, GERD, chronic abdominal pain, pancreatic duct stricture SKILLED CARE COURSE: Shannon Sanchez was admitted to alf facility for acute care rehabilitation. Prior to coming to nursing facility patient was hospitalized at [facility] from 09/08 through 09/13 for generalized weakness with falls. Was found to have traumatic rhabdomyolysis, cardiac and neuroworkup was completed due to concern for syncope and was unremarkable. She received alf care and physical therapy rehabilitation while she was in the rehabilitation facility. She did well with this to regain her strength and ambulation enough that it is feltthat she can be safely discharged back home. Should be noted that shortly after arrival to rehabilitation facility she developed bilateral lowerextremity edema. No other signs of CHF exacerbation otherwise. This was felt to be in large part related to the IV fluids she received during hospitalization. She had Dopplers done both lower extremities which were negative for DVT. She was started on furosemide and at day of discharge the edema has essentially completely resolved. She will go home on a low dose of furosemide and potassium supplementation to be taken every other day and she will need to follow-up with her oil well services dispatcher. Also important to note that while in the facility she expressed interest in getting off of the narcotic opioid pain medications. She is on a very high dose opioid pain medications that she has been on for over 2 decades now and is managed by a pain management physician. I gave her resources for opioid abuse rehabilitation. She call them but apparently because of her age and medical history she was not a candidate but she did find out all [facility] should be able to help her has a offer a detox clinic and she is in communication with them and plans on following up them. Otherwise today she says she feels ???good?? and denies any acute symptoms or concerns. She is excited to be getting to go home today. Exam Day of Discharge: Vital Signs: B/P: 124/66 Pulse: 78 Respirations: 18 Temperature: 97.4 General: Well developed, well nourished, in no [...] deformities, joint mobility appears intact, no clubbing 09/26 - trace to 1+ pitting edema in both lower extremities up to mid bright. 10/02 - Trace pitting edema both lower extremities 10/06 - edema has essentially resolved Neuro: Non-focal, CN intact, sensory and motor intact Psychological: alert and oriented X3, appropriate mood and affect, Intact judgement and memory Lab / Imaging Review: Lab Results: On 09/13 in the hospital, CBC with WBC of 3.7, hemoglobin 10.5, platelet count 392. BMP with otherwise within normal limits. 09/27/2022: CMP completely within normal limits. CBC with WBC of 3.2, hemoglobin 9.6 otherwise unremarkable. Imagin/4: EXAM DESCRIPTION: ?? US [...] - Electronically signed by ??Bryan Mederos M.D. DISCHARGE PLAN: She has regained enough strength and ambulation to be safely discharged. Patient will be going homelater today. Either her daughter will be transporting her or someone from the agency that her new postal worker is from will be transporting her. She is not sure yet. She will be discharged with home health referral. She has arranged for a new postal worker come to her house daily. Her daughter is very involved in her care. Understands to continue all current medications as directed and follow up with PCP in 1-2 weeks. I have spent time coordinating care for this hospital discharge: Greater than 30 minutes spent in coordinating care This note was dictated using [employer] fluency dictation system and there may be errors in coil rewind machine operator. Despite proof reading the note, there may be mistakes and I apologize for those. Signed: ARNIE Washburn, 10/06/2022, 3:41 PM COLLABORATIVE TEACHER ABORATIVE TEACHER documented in this encounter Plan of Treatment Not on file documented as of this encounter Visit Diagnoses Not on filedocumented in this encounter Care Teams Insurance Salesman Relationship Specialty Start Date End Date Nishi Michael MD [address] [facility] [place] [address] PCP - General Internal Medicine 08/02/16 documented as of this encounter
--- OUTSIDE RECORDS SUMMARY | 2025-03-10 16:39 | XMS_ITS | Encounter Summary ---
Author Organization [facility] Address [address] [place] [address] Phone Care Team Providers Care Educational Specialist Name Role Phone Nishi Michael MD Primary Care Provider [phone] Encounter Details Date Type Department Care Team (Late st Contact Info) Description 04/24/2023 Nursing Facility [facility] [address] [place] [address] Jack Ramsay, PAC [address] [place], [place] [id number] Social History Tobacco Use Types Packs/Day Years Used Date Smoking Tobacco: Never Assessed Comments Unknown Sex and Gender Information Value Date Recorded Sex Assigned at Not on file Legal Sex Female 7:30 PM CDT Gender Identity Not on file Sexual Orientation Not on file documented as of this encounter Progress Notes * Jack Ramsay, ARNIE - 04/24/2023 2:16 PM CDT [facility] PROGRESS NOTE Shannon Sanchez is a 77 y.o. female at [facility] for rehabilitation. He was a resident here from 09/13/2022 through 10/06/2022 where she received assisted and physical therapy after being hospitalized at [facility] for generalized weakness and falls. Her workup in the hospitalization was largely unremarkable other than mild traumatic rhabdomyolysis She was rehospitalized at [facility] from 04/02/2023 through 04/07/2023 after suffering a left femoral neck fracture that required surgical repair. Subjective: Interval History: Patient sitting comfortably in chair. Says she is feeling ???better?? . GERD is much better now that the Dexilant has been restarted. URI symptoms also or improving. Feels like therapy is going well. Has no acute symptoms or concerns. Past medical history: Chronic diastolic congestive [...] hemoglobin 10.5, platelet count 392. BMP with [id number] otherwise within normal limits. 09/27/2022: CMP completely [...] Fernando Receiving nursing and physical therapy 04/19: [place] recently removed. Weight-bearing as tolerated. Generalized weakness and deconditioning Receiving assisted care and physical therapy rehabilitation Chronic pain syndrome Followed by pain management Dr. Jones Is on a very aggressive pain regimen but this will be continued while here 10/02/22 - Patient is interested in Getting off of these narcotic pain medications which I congratulated her on. We have provided information on [facility] which is a local opioid abuse rehabilitation program. Patient is looking into this and also looking into [facility] [place]. 04/09/2023: Patient returns to facility on the [...] pancreatic duct Is followed by GI at [facility] Diabetes mellitus type 2 Diet-controlled Other chronic medical conditions include previous CVA, chronic abdominal pain, Continue home regimen Stable VTE Prophylaxis: Patient Low Risk I discussed advanced care planning with this patient. Disposition: 04/09: Patient tells me she is considering assisted living facility at discharge This note was dictated using [employer] fluency dictation system and there may be errors in process worker. Despite proof reading the note, there may be mistakes and I apologize for those. By: ARNIE Washburn, 04/24/2023 2:17 PM CDT documented in this encounter Plan of Treatment Not on file documented as of this encounter Visit Diagnoses Not on filedocumented in this encounter Care Teams Educational Specialist Relationship Specialty Start Date End Date Nishi Michael MD [address] [facility] [address] PCP - General Internal Medicine 08/02/16 documented as of this encounter
--- OUTSIDE RECORDS SUMMARY | 2025-03-10 16:39 | XMS_ITS | Clinical Summary ---
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 Name Role Phone Nishi Michael MD Primary Care Provider + [phone] Mark Tolliver MD Unavailable [phone] Ceasar Yang MD Unavailable [phone] Maikel Mckeon MD Unavailable [phone] Rosie Velasquez MD Unavailable [phone] Yuri Akers MD Unavailable [phone] Blaze Fernando MD Unavailable [phone] Deshaun Xavier MD Unavailable Dylan Gillespie MD Unavailable [phone] Yoly Ramirez MD Unavailable Filipe Monsalve DPM Unavailable [phone] Allergies Active Allergy Reactions Criticality Noted Date Comments Amitriptyline Unknown Low 06/06/2019 Ciprofloxacin Rash Medium 09/13/2022 Reaction: rash, Other reaction(s): Cutaneous reactions Gabapentin Other (See comments) Low Reaction: unknown, , , Horse Epithelium Allergenic Extract Unknown 06/06/2019 Other reaction(s): HORSE SERUM Ibuprofen Unknown 06/06/2019 Immune Globulin,Horse (Equine) Unknown 09/14/2009 Atorvastatin Other (See comments) Low 10/16/2024 All family members are allergic to statins she does not want to take, switched to Zetia September 2024 Nortriptyline Unknown Low Nortriptyline Hcl Unknown 09/14/2009 Nsaids (Non-Steroidal Anti-Inflammatory Drug) Edema,Anaphylaxis High 08/31/2008 Reaction: Anaphylaxis, Penicillin V Anaphylaxis High Reaction: ANAPHYLAXIS, Penicillin V Potassium Unknown 06/06/2019 Penicillins Anaphylaxis,Rash High 06/08/2020 Reaction: Anaphylaxis, Pregabalin Shortness of breath,Edema,Unkno wn High 06/06/2019 Reaction: SOB, edema, , Reaction: Edema, Sulfa (Sulfonamide Antibiotics) Rash,Flushing (skin) Medium 06/08/2020 Reaction: Rash, , Reaction: Ashlee syndrome, Sulfamethoxazole Unknown 06/06/2019 Sulfanilamide Unknown 03/09/2022 Sulfasalazine Other (See comments) Low 12/24/2008 [place] Tetanus Immune Globulin Unknown 09/14/2009 Tetanus Toxoid Unknown Low 12/24/2008 Tetanus Vaccines And Toxoid Unknown Low Tetracycline Rash Medium Reaction: rash, Tolterodine Other (See comments) Low 10/16/2024 More mental confusion, low blood pressure, dry mouth, class of medicine does not work. Considered contraindicated in her case Pentoxifylline Other (See comments) Low 07/08/2023 tremors Tuberculin Unknown Medium 09/27/2022 Medications lidocaine (LIDODERM) 5 %Indications:Os teoporosis, idiopathic,Comp ression fracture of L2 vertebra with routine healing,Closed fracture of multiple thoracic vertebrae, sequela,Chronic pain disorder Place 3 patches on the skin daily Down spine 02/15/20 23 Active Xtampza ER 36 mg capsule,sprinkl e,ER 12hr tmprr take 3 capsules every 12 hours 05/17/20 23 Active oxygenIndicatio ns:Dyspnea Administer 3 L/min into each nostril continuously. Indications: trouble breathing Active oxyCODONE-aceta minophen (PERCOCET) 10-325 mg per tabletIndicatio ns:Pain Take 1 tablet by mouth every 4 (four) hours as needed for pain Active oxyCODONE-aceta minophen (PERCOCET) 10-325 mg per tabletIndicatio ns:Pain Take 2 tablets by mouth every 4 (four) hours as needed for pain Active ketoconazole (NIZORAL) 2 % shampoo Active metroNIDAZOLE (FLAGYL) 500 mg tablet 01/25/20 Active nitroglycerin (NITROSTAT) 0.[address] 1 tablet (0.4 mg total) under the tongue every 5 (five) minutes as needed for chest pain Active mupirocin (BACTROBAN) 2 % ointmentIndicat ions:Cat bite of hand, subsequent encounter Apply topically 3 (three) times a day 22 g 04/09/20 24 Active cholecalciferol (VITAMIN D-3) 2000 unit capsuleIndicati ons:Osteoporosi s, idiopathic Take 1 capsule (2,000 Units total) by mouth daily 90 capsule 3 04/09/20 24 2026 Active acetylcysteine 600 mg capsule Take 1 capsule by mouth 2 (two) times a day 60 capsule 05/08/20 24 Active fluticasone-ume clidin-vilanter (Trelegy Ellipta) 100-62.5-25 mcg inhaler Inhale 1 puff daily 30 each 05/08/20 24 Active albuterol HFA (PROVENTIL HFA,VENTOLIN HFA,PROAIR HFA) 90 mcg/actuation inhaler Inhale 2 puffs every 6 (six) hours as needed for wheezing or shortness of breath 1 each 05/08/20 24 Active LORazepam (ATIVAN) 0.5 mg tabletIndicatio ns:Abdominal pain, chronic, right upper quadrant Take 1 tablet (0.5 mg total) by mouth every 12 (twelve) hours as needed (for abdominal pain) 20 tablet 07/08/20 24 Active naloxone (NARCAN) 4 mg/actuation spray,non-aeros ol Administer 1 spray into affected nostril(s) as needed for opioid reversal or respiratory depression Call 911. Administer a single spray in one nostril. Repeat every 3 minutes as needed if no or minimal response. 1 each 07/08/20 24 Active carisoprodoL (SOMA) 350 mg tablet 1 tablet (350 mg total) 4 (four) times a day as needed 08/01/20 24 Active roflumilast (DALIRESP) 500 mcg tabletIndicatio ns:Prevention of Bronchospasm with Chronic Bronchitis Take 1 tablet (500 mcg total) by mouth daily 30 tablet 11 09/16/20 24 Active valACYclovir (VALTREX) 500 mg tabletIndicatio ns:Anogenital herpes simplex virus (HSV) infection TAKE 1 TABLET (500 MG TOTAL) BY MOUTH DAILY NEEDED (PAINFUL BUTT RASH) 90 tablet 3 09/20/20 24 Active metoprolol tartrate (LOPRESSOR) 50 mg immediate release tabletIndicatio ns:Chronic heart failure with preserved ejection fraction (HCC) TAKE 0.5 TABLETS (25 MG TOTAL) BY MOUTH TWO (2) (TWO) TIMES a DAY 90 tablet 1 09/23/20 24 Active cyanocobalamin (Vitamin B-12) 1,000 mcg/mL injectionIndica tions:B12 deficiency Inject 1 mL (1,000 mcg total) under the skin every 30 (thirty) days Starting 12-27-22 starting 1000 mcg weekly for 5 weeks then once monthly 10 mL 2 10/16/[address] (CYMBALTA) 30 mg capsuleIndicati ons:Chronic pain disorder,Chroni c migraine without aura without status migrainosus, not intractable Take 1 capsule (30 mg total) by mouth daily 90 capsule 1 10/16/20 24 2024 Active dicyclomine (BENTYL) 20 mg tablet TAKE 1 TABLET (20 MG TOTAL) BY MOUTH FOUR (4) (FOUR) TIMES a DAY 360 tablet 11/02/20 24 Active lubiprostone (AMITIZA) 8 mcg capsuleIndicati ons:Constipatio n due to opioid therapy TAKE 1 CAPSULE (8 MCG TOTAL) BY MOUTH TWO (2) (TWO) TIMES a DAY WITH MEALS 180 capsule 1 11/26/19 25 Active dexlansoprazole (DEXILANT) 60 mg capsule Take 1 capsule (60 mg total) by mouth daily 90 capsule 3 11/26/19 25 2025 Active albuterol 2.5 mg /3 mL (0.083 %) nebulizer solutionIndicat ions:Centrilobu lar emphysema (HCC) USE 1 vial (2.5 MG TOTAL) BY NEBULIZATION FOUR (4) (FOUR) TIMES a DAY NEEDED FOR WHEEZING OR SHORTNESS OF BREATH 90 mL 11 12/08/19 25 Active clopidogreL (PLAVIX) 75 mg tabletIndicatio ns:Right-sided anterior cerebral circulation infarction (HCC) TAKE 1 TABLET (75 MG TOTAL) BY MOUTH DAILY 90 tablet 01/12/20 25 2025 Active mirtazapine (REMERON) 7.5 mg tablet Take 1 tablet (7.5 mg total) by mouth nightly 30 tablet 3 01/20/20 25 Active promethazine (PHENERGAN) 25 mg tabletIndicatio ns:Nausea TAKE 1 TABLET (25 MG TOTAL) BY MOUTH EVERY SIX (6) (SIX) HOURS NEEDED FOR NAUSEA OR VOMITING 90 tablet 01/28/20 25 Active empagliflozin (Jardiance) 10 mg tabletIndicatio ns:Chronic heart failure with preserved ejection fraction (HCC),Type 2 diabetes mellitus with diabetic polyneuropathy, without long-term current use of insulin (HCC) TAKE 1 TABLET (10MG TOTAL) BY MOUTH ONCE DAILY IN THE MORNING. 60 tablet 03/09/20 25 Active tacrolimus (PROTOPIC) 0.1 % ointment APPLY TO LEGS BY TOPICAL ROUTE TWO TIMES A DAY 1 01/08/20 19 2020 Discontinued empagliflozin (Jardiance) 10 mg tabletIndicatio ns:Chronic heart failure with preserved ejection fraction (HCC),Type 2 diabetes mellitus with diabetic polyneuropathy, without long-term current use of insulin (HCC) TAKE 1 TABLET (10MG TOTAL) BY MOUTH ONCE DAILY IN THE MORNING. 90 tablet 1 04/09/20 24 2024 Discontinued Active Problems Problem Noted Date Diagnosed Date Poor appetite 01/26/2025 Assessment & Plan (01/26/2025 8:20 PM DIRECTOR RADIATION ONCOLOGY): Lost about 45 lbs in the past year and half due to poor appetite Daughter recently moved in with her so has been under a lot of stress Plan Trial of Mirtazapine 7.5 mg QHS Post-menopausal osteoporosis 10/21/2024 Dizziness and giddiness 02/21/2024 Double vision 02/21/2024 Chronic migraine without aur a without status migrainosus, not intractable 02/21/2024 Constipation due to opioid therapy 01/08/2024 Assessment & Plan (01/26/2025 8:18 PM DIRECTOR RADIATION ONCOLOGY): Well controlled with Amitiza 8mg BID with senna as needed, will continue current therapy Assessment & Plan (07/13/2024 10:44 PM CDT): Well controlled with Amitiza 8mg BID, will continue current therapy Assessment & Plan (01/08/2024 6:19 PM DIRECTOR RADIATION ONCOLOGY): Well controlled with Amitiza 8mg BID, will continue current therapy IPMN (intraductal papillary mucinous neoplasm) 0 01/08/2024 Assessment & Plan (01/26/2025 8:18 PM DIRECTOR RADIATION ONCOLOGY): EUS 08/2022 showed dilated pancreatic duct cystic lesion in the pancreas concerning for IPMN with FNA fluid studies negative for malignancy, dilation in the CBD up to 16 mm due to papillary stenosis MRI 02/2024 pancreas showed stable cystic lesion 2x 0.9 cm Plan Given stability of her cyst, will stop surveillance given her age and co- morbidities Assessment & Plan (07/13/2024 10:44 PM CDT): EUS 08/2022 showed dilated pancreatic duct cystic lesion in the pancreas concerning for IPMN with FNA fluid studies negative for malignancy, dilation in the CBD up to 16 mm due to papillary stenosis MRI 02/2024 pancreas showed stable cystic lesion 2x 0.9 cm Plan Given stability of her cyst, will stop surveillance given her age and co- morbidities Assessment & Plan (01/08/2024 6:35 PM DIRECTOR RADIATION ONCOLOGY): EUS 08/2022 showed dilated pancreatic duct cystic lesion in the pancreas concerning for IPMN with FNA fluid studies negative for malignancy, dilation in the CBD up to 16 mm due to papillary stenosis MRI pancreas from 07/2023 showed mild intrahepatic and moderate extrahepatic biliary dilation with pneumobilia, CBD measured 1.3 cm with findings concerning for ampullary stenosis. Pancreatic cystic lesion at the neck measuring 2.1 x 0.9 cm Plan Repeat MRI in a year 07/2024, if cyst remains stable will stop surveillance given her age and co-morbidities Diabetes mellitus 09/20/2023 Assessment & Plan (01/31/2024 2:02 PM DIRECTOR RADIATION ONCOLOGY): No recnet HbA1c in chart, most recent random glucose in October was 205 despite Jardiance. No acute symptoms or findings on exam. Continue current regimen for now, re-check diabetic labs before visit in 1 month. Takotsubo syndrome 07/07/2023 Overview (08/30/2023): Angiographic findings (-) for ischemia. Probably a Takotsubo's syndrome. Dr. Velasquez gave Metolrolol: 1. Left main: Bifurcates into LAD and LCX. There was no angiographic significant disease 2. LAD: Normal anatomic course, gives to diagonal branches. There was no angiographic significant disease. 3. LCX: Normal anatomic course, gives to OM branches. Mild 10% stenosis in proximal LCX 4. RCA: Normal anatomic course, gives to PDA and PLV branches. There was no angiographic significant disease. Assessment & Plan (08/01/2023 1:17 PM CDT): See hospitalization at [facility] from 06/2023. Was rxd Imdur 30mg upon discharge and is requesting refill. Assessment & Plan (07/09/2023 12:24 PM CDT): Elevated troponins on admission. Cardiology consulted, appreciate their recommendations. Per cardiology evaluation, possible NSTEMI. Previously on Plavix, Lopressor b.i.d. and Lipitor. Has received full-dose Lovenox. Plan: Cardiology on consult. Cardiac catheterization on 07/09. Continue atorvastatin 40 mg daily, clopidogrel 75 mg daily, metoprolol tartrate 25 mg b.i.d.. 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 Assessment & Plan (06/28/2023 3:24 PM CDT): With chronic respiratory failure requiring home 02 use. Sating 98% on 2LNC. Breath sounds dim with intermittent expiratory wheezing on exam today. CT chest in 02/2023 was stable. Continue current regimen and o2 use. Keep follow with pulmonology next week. Assessment & Plan (04/06/2023 1:06 PM CDT): See assessment and plan for chronic respiratory failure. Assessment & Plan (04/05/2023 1:10 PM CDT): See assessment and plan for chronic respiratory failure. Assessment & Plan (04/04/2023 12:13 PM CDT): See assessment and plan for chronic respiratory failure. Assessment & Plan (04/03/2023 12:20 PM CDT): See assessment and plan for chronic respiratory failure. Assessment & Plan (04/02/2023 6:44 PM CDT): See assessment and plan for chronic respiratory failure. Peripheral vascular disease 09/13/2022 Assessment & Plan (08/01/2023 1:15 PM CDT): Worsening over last 4 months, has also had new MA in that time. Tried to start pentoxifylline but it made her shaky and SOB (was in ER with MA the next day). Sees Dr. Velasquez on regular basis, missed most recent follow up. ECHO in February showed EF of 70%, no valvular issues, only mild pulmonary htn. Cardiac cath upon recent hospitalization last month was unremarkable. Venous dopplers in 09/2022 and ABIs done in 02/2023 were also unremarkable. Will add cilostazol to current regimen of Metoprolol, Imdur, and plavix. Encourage to schedule missed follow with Dr. Velasquez [facility]. Assessment & Plan (07/12/2023 2:38 PM CDT): Worsening over past several months s/p L THR in march. Bilateral venous dopplers in September and arterial dopplers in February were unremarkable. Mild vasculitis to BLE as noted above, good peripheral pulses. Will trial Rx trental 400mg BID to see if this improves leg pain. Encouraged elevation and compression as discussed previously. Keep follow next week as scheduled. Chronic RUQ pain 07/06/2022 Assessment & Plan (07/13/2024 10:43 PM CDT): Still having RUQ pain that is chronic and overall stable, Ativan is the only thing that seems to help. also takes bentyl 20 mg four times a day, tried TCA but made bp go up to 200s. Did have a severe episode of RUQ pain 2 months ago and went to ED. pain improved after Ativan. Labs that time showed stable Hgb 10.7, mildly decreased TS of 19%, improved from previously, normal iron and B12. Na was decreased at 130, with elevated K of 5.6, normal LFTs CT A/P 02/2024 showed no acute findings. MRI 02/2024 pancreas showed stable cystic lesion 2x 0.9 cm. Similar appearance of possible ampullary stenosis. ERCP 06/2022 with resolution of previously noted papillary stenosis after biliary/pancreatic sphincterotomies Plan Given the pain is chronic and has been overall stable with normal LFTs will defer any invasive procedures for now. However if starts to flare up more frequently then will refer for ERCP again given hx of chronic recurrent ampullary stenosis Discussed again stopping bentyl given her age or at least taking it PRN Will do a very limited quantity of Ativan to avoid ED visits Patient was also given prescription of Narcan and counseled extensively on the potential risks of overdosing especially given her age and concurrent opioid use. Assessment & Plan (01/08/2024 6:39 PM DIRECTOR RADIATION ONCOLOGY): Still having RUQ pain that is chronic and stable, ativan previously helped, also takes bentyl 20 mg four times a day, tried TCA but made bp go up to 200s. Lost about 45 lbs over the past year ERCP 06/2022 with extension of previous biliary/pancreatic sphincterotomies MRI pancreas from 07/2023 showed mild intrahepatic and moderate extrahepatic biliary dilation with pneumobilia, the CBD measured 1.3 cm with findings concerning for ampullary stenosis. Pancreatic cystic lesion at the neck measuring 2.1 x 0.9 cm Labs from 10/2023 showed normal LFTs Plan Given the pain is chronic and has been stable with normal LFTs will defer any invasive procedures for now. 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 Denies any dyspnea. Plan: Continue baseline O2. Assessment & Plan (04/06/2023 12:51 PM CDT): History of chronic COPD with baseline 3-3.5 L O2 at home. Denies acute worsening cough at this time. Patient previously taking Trelegy and p.r.n. albuterol. Trelegy non formally while inpatient. Per pharmacy substitution, patient changed to Symbicort and ipratropium. Plan: Continue Symbicort and ipratropium. Assessment & Plan (04/05/2023 1:06 PM CDT): History of chronic COPD with baseline 3-3.5 L O2 at home. Denies acute worsening cough at this time. Patient previously taking Trelegy and p.r.n. albuterol. Trelegy non formally while inpatient. Per pharmacy substitution, patient changed to Symbicort and ipratropium. Plan: Continue Symbicort and ipratropium. Assessment & Plan (04/04/2023 12:08 PM CDT): History of chronic COPD with baseline 3-3.5 L O2 at home. Denies acute worsening cough at this time. Patient previously taking Trelegy and p.r.n. albuterol. Trelegy non formally while inpatient. Per pharmacy substitution, patient changed to Symbicort and ipratropium. Plan: Continue Symbicort and ipratropium. Assessment & Plan (04/03/2023 12:17 PM CDT): History of chronic COPD with baseline 3-3.5 L O2 at home. Denies acute worsening cough at this time. Patient previously taking Trelegy and p.r.n. albuterol. Trelegy non formally while inpatient. Per pharmacy substitution, patient changed to Symbicort and ipratropium. Plan: Continue Symbicort and ipratropium. Assessment & Plan (04/02/2023 6:43 PM CDT): History of chronic COPD with baseline 3-3.5 L O2 at home. Denies acute cough at this time. Patient previously taking Trelegy and p.r.n. albuterol. Trelegy non formally while inpatient. Per pharmacy substitution, patient changed to Symbicort and ipratropium. Plan: Continue Symbicort and ipratropium. Assessment & Plan (03/06/2023 8:56 AM CDT): Chronic problem managed by Pulmonology. Wears O2 constantly. No acute findings on exam today. Sating 96% on 2LNC. Will continue to monitor. Assessment & Plan (01/31/2022 10:28 AM DIRECTOR RADIATION ONCOLOGY): Continue home 3 L O2. Chronic GERD 09/02/2017 Assessment & Plan (01/26/2025 8:22 PM DIRECTOR RADIATION ONCOLOGY): Associated with chronic intermittent nausea, currently in a bad flare with bad reflux, currently taking Dexilant 60 mg daily Takes phenergan as needed for nausea with relief most of the time EGD 11/2016 with normal esophagus and normal gastric and duodenal bx ERCP and EUS from 2021 did not note any esophageal strictures Plan Continue Dexilant 60 mg daily and add famotidine at bedtime Start Mirtazapine 7.5 mg QHS to help with appetite and nausea Continue phenergan as needed for nausea Antireflux lifestyle modifications Assessment & Plan (07/13/2024 10:35 PM CDT): takes Dexilant 60 mg daily with good control of reflux EGD 11/2016 with normal esophagus and normal gastric and duodenal bx ERCP and EUS from 2021 did not note any esophageal strictures Plan Continue Dexilant 60 mg daily Antireflux lifestyle modifications Assessment & Plan (01/08/2024 6:17 PM DIRECTOR RADIATION ONCOLOGY): takes Dexilant 60 mg daily with good control of reflux Has occasional dysphagia with certain meats, which I think because she's edentulous EGD 11/2016 with normal esophagus and normal gastric and duodenal bx ERCP and EUS from 2021 did not note any esophageal strictures Plan Continue Dexilant 60 mg daily Dysphagia diet and precautions Antireflux lifestyle modifications Multiple-type hyperlipidemia 05/07/2017 Chronic heart failure with preserved ejection fr action 05/07/2017 Overview (04/09/2024): >>OVERVIEW FOR CHRONIC DIASTOLIC HEART FAILURE (HCC) WRITTEN ON 08/01/2023 1:20 PM BY RHONA BREEN NP Cardiac Cath 06/2023: 1. Left main: Bifurcates into LAD and LCX. There was no angiographic significant disease 2. LAD: Normal anatomic course, gives to diagonal branches. There was no angiographic significant disease. 3. LCX: Normal anatomic course, gives to OM branches. Mild 10% stenosis in proximal LCX 4. RCA: Normal anatomic course, gives to PDA and PLV branches. There was no angiographic significant disease. TTE 02/2023: Normal left ventricular size. Normal left ventricular wall thickness. Hyperdynamic left ventricular function. No focal wall motion abnormalities. Impaired diastolic relaxation Grade I. Ejection fraction is measured at >70 %. Normal right ventricular size. Normal right ventricular systolic function. There is mild enlargement of left atrium. Mitral valve leaflets appear mildly thickened. Mild mitral annular calcification. Trivial regurgitation of the mitral valve. No evidence of hemodynamically significant aortic stenosis by Doppler. Aortic cusps appear mildly sclerotic. Trace to mild aortic valve regurgitation. Normal structure of the tricuspid valve. Mild pulmonary hypertension based on right ventricular systolic pressure. Estimated peak RVSP is 41 mmHg. Trivial regurgitation in the tricuspid valve. Normal pericardium with no significant pericardial effusion. Technically difficult study with suboptimal visualization. Valves in general are poorly visualized. Recheck echo bubble study 2021 (-) for diastolic dysfunction--unclear what is causing increase NT pro BNP and lymphedema other than pulmonary hypertension from the underlying emphysema Conclusions: 1. Grossly normal left ventricular systolic function based on limited views. Inadequate for detailed regional wall motion assessment. Ejection Fraction is estimated at 70-75 %. Normal left ventricular diastolic function. Normal left ventricular cavity size. Mild concentric left ventricular hypertrophy. 2. Normal right ventricular systolic function. Normal right ventricular size. 3. There is mild enlargement of the left atrium. 4. Saline contrast study negative for R to L shunt. Assessment & Plan (04/09/2024 5:08 PM CDT): >>ASSESSMENT AND PLAN FOR CHRONIC DIASTOLIC HEART FAILURE (HCC) WRITTEN ON 03/06/2023 8:55 AM BY RHONA BREEN NP BLE edema as noted above, no out of the ordinary SOB, lungs clear. Advised patient edema could be caused by cellulitis as well. Will treat with Keflex and follow in 2 weeks to assess efficacy of diuretics. Elevate legs as much as possible, continue to wear compression socks while up during the day. Assessment & Plan (04/09/2024 5:08 PM CDT): >>ASSESSMENT AND PLAN FOR CHRONIC DIASTOLIC HEART FAILURE (HCC) WRITTEN ON 07/12/2023 2:41 PM BY RHONA BREEN NP Stable on current regimen, history and exam review reveals no acute findings. Keep follows with cardiology as scheduled. Continue current medication regimen. Assessment & Plan (04/09/2024 5:08 PM CDT): >>ASSESSMENT AND PLAN FOR CHRONIC DIASTOLIC HEART FAILURE (HCC) WRITTEN ON 08/01/2023 1:21 PM BY RHONA BREEN NP See hospitalization for recent MA at [facility] 06/2023. Sees [address] Velasquez on regular basis, missed most recent follow up. ECHO in February showed EF of 70%, no valvular issues, only mild pulmonary htn. Cardiac cath upon recent hospitalization last month was unremarkable. Venous dopplers in 09/2022 and ABIs done in 02/2023 were also unremarkable. Will add cilostazol to current regimen of Metoprolol, Imdur, and plavix. Encourage to schedule missed follow with Dr. Eva TOMAS. Assessment & Plan (10/03/2023 8:48 PM DIRECTOR RADIATION ONCOLOGY): Stable on current regimen after starting jardiance. No acute findings on exam, now only trace swelling to BLE. Admits no out of th ordinary SOB. ECHO from 02/2023 unremarkable. Cardiac cath in June showed nonobstructive CAD. Continue current regimen and low salt diet. Assessment & Plan (07/09/2023 12:26 PM CDT): Euvolemic at this time. Previous home medication of Lopressor 25 mg b.i.d.. Cardiology on consult. Plan: Cardiology on consult. Continue home medication of Lopressor 25 mg b.i.d.. Assessment & Plan (04/06/2023 12:56 PM CDT): Previous echo in February 2023 with Impaired diastolic relaxation Grade I. Ejection fraction is measured at >70 %. ProBNP on admission within normal limits. Clinically the patient appears euvolemic at this time. Unlikely exacerbation. Remains on baseline O2 at this time. Previously taking all medications of Lopressor 25 mg b.i.d and Lasix 20 mg p.o. b.i.d.. Lasix resumed on 04/06. Plan: Continue Lopressor 25 mg b.i.d.. Resumed Lasix 20 mg p.o. b.i.d. Assessment & Plan (04/05/2023 1:08 PM CDT): Previous echo in February 2023 with Impaired diastolic relaxation Grade I. Ejection fraction is measured at >70 %. ProBNP on admission within normal limits. Clinically the patient appears euvolemic at this time. Unlikely exacerbation. Remains on baseline O2 at this time. Previously taking all medications of Lopressor 25 mg b.i.d and Lasix 20 mg p.o. b.i.d.. Lasix on hold at this time due to present IV fluids and pending surgery. Plan: Continue Lopressor 25 mg b.i.d.. Home medication of Lasix 20 mg p.o. b.i.d. on hold at this time. Assessment & Plan (04/04/2023 12:09 PM CDT): Previous echo in February 2023 with Impaired diastolic relaxation Grade I. Ejection fraction is measured at >70 %. ProBNP on admission within normal limits. Clinically the patient appears euvolemic at this time. Unlikely exacerbation. Remains on baseline O2 at this time. Previously taking all medications of Lopressor 25 mg b.i.d and Lasix 20 mg p.o. b.i.d.. Lasix on hold at this time due to present IV fluids and pending surgery. Plan: Continue Lopressor 25 mg b.i.d.. Home medication of Lasix 20 mg p.o. b.i.d. on hold at this time. Assessment & Plan (04/03/2023 12:17 PM CDT): Previous echo in February 2023 with Impaired diastolic relaxation Grade I. Ejection fraction is measured at >70 %. ProBNP on admission within normal limits. Clinically the patient appears euvolemic at this time. Unlikely exacerbation. Remains on baseline O2 at this time. Previously taking all medications of Lopressor 25 mg b.i.d and Lasix 20 mg p.o. b.i.d.. Lasix on hold at this time due to present IV fluids and pending surgery. Plan: Continue Lopressor 25 mg b.i.d.. Home medication of Lasix 20 mg p.o. b.i.d. on hold at this time. Assessment & Plan (04/02/2023 6:34 PM CDT): Previous echo in February 2023 with Impaired diastolic relaxation Grade I. Ejection fraction is measured at >70 %. ProBNP on admission within normal limits. Clinically the patient appears euvolemic at this time. Unlikely exacerbation. Remains on baseline O2 at this time. Previously taking all medications of Lopressor 25 mg b.i.d and Lasix 20 mg p.o. b.i.d.. Lasix on hold at this time due to present IV fluids and pending surgery. Plan: Continue Lopressor 25 mg b.i.d.. Home medication of Lasix 20 mg p.o. b.i.d. on hold at this time. Osteoporosis, idiopathic 11/07/2013 Overview (09/20/2023): Images from the original note were not included. DEXA August 2023 FINDINGS: AP LUMBAR SPINE L1-L4: Total BMD is 0.789 g/cm2 T-score is -2.3 RIGHT HIP:Total BMD is 0.625 g/cm2 T-score is -2.6 Femoral neck BMD is 0.480 g/cm2 T-score is -3.3 DEXA (+) 06/2020 AP LUMBAR SPINE L1-L4: T-score is -2.4 LEFT HIP: T-score is -1.7 Femoral neck T-score is -2.7 Took 4 weeks of Fosamax in 2018 and has not taken since Qualifies for Forteo, prescription sent 05/25/2020 Has history spinal compression fractures, will evaluate to try Forteo April 2020 CT scan lung April 2020 confirmed presence of underlying spinal compression fractures and kyphosis MUSCULOSKELETAL: Examination of bone windows demonstrates no suspicious lytic or blastic lesions. There is unchanged severe focal kyphosis in the thoracic spine secondary to old, unchanged compression fractures. There also unchanged compression fractures in the mid to lower thoracic spine. No new acute fractures seen. Old sternal body fracture also noted. 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 Reports occasional blurred vision, but denies any chest pain, shortness breast, headaches or other prodrome. EKG on admission with normal sinus. Serial troponins on admission were negative. Reports has not had any recent neurology follow-up. Potential differentials at this time include likely over-sedation from excessive opioid pain medication versus possible vascular injury versus possible deconditioning versus possible instability. Respiratory jeter the patient remains at baseline O2 and has no complaints of dyspnea. PT and OT resumed. Plan: Post surgical correction potentially may require repeat neurological evaluation. Recommend patient consider deescalating chronic opioid usage at high quantities. 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 Reports occasional blurred vision, but denies any chest pain, shortness breast, headaches or other prodrome. EKG on admission with normal sinus. Serial troponins on admission were negative. Reports has not had any recent neurology follow-up. Potential differentials at this time include likely over-sedation from excessive opioid pain medication versus possible vascular injury versus possible deconditioning versus possible instability. Respiratory jeter the patient remains at baseline O2 and has no complaints of dyspnea. PT and OT evaluations at this time are on hold given need for possible surgical correction. Plan: Post surgical correction potentially may require repeat neurological evaluation. Recommend patient consider deescalating chronic opioid usage at high quantities. 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 Reports occasional blurred vision, but denies any chest pain, shortness breast, headaches or other prodrome. EKG on admission with normal sinus. Serial troponins on admission were negative. Reports has not had any recent neurology follow-up. Potential differentials at this time include likely over-sedation from excessive opioid pain medication versus possible vascular injury versus possible deconditioning versus possible instability. Respiratory jeter the patient remains at baseline O2 and has no complaints of dyspnea. PT and OT evaluations at this time are on hold given need for possible surgical correction. Plan: Post surgical correction potentially may require repeat neurological evaluation. Recommend patient consider deescalating chronic opioid usage at high quantities. 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 Reports occasional blurred vision, but denies any chest pain, shortness breast, headaches or other prodrome. EKG on admission with normal sinus. Serial troponins on admission were negative. Reports has not had any recent neurology follow-up. Potential differentials at this time include likely over-sedation from excessive opioid pain medication versus possible vascular injury versus possible deconditioning versus possible instability. Respiratory jeter the patient remains at baseline O2 and has no complaints of dyspnea. PT and OT evaluations at this time are on hold given need for possible surgical correction. Plan: Post surgical correction potentially may require repeat neurological evaluation. Recommend patient consider deescalating chronic opioid usage at high quantities. 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 Reports occasional blurred vision, but denies any chest pain, shortness breast, headaches or other prodrome. EKG on admission with normal sinus. Serial troponins on admission were negative. Reports has not had any recent neurology follow-up. Potential differentials at this time include possible vascular injury versus possible deconditioning versus possible instability. PT and OT evaluations at this time are on hold given need for possible surgical correction. Plan: Post surgical correction potentially may require repeat neurological evaluation. Assessment & Plan (04/06/2023 12:50 PM CDT): Patient with a previous history of osteoporosis. Potentially contributing to the patient's repeated falls and multiple fractures. Patient previously taking home medications of Tymlos 80 mcg subQ daily and vitamin D3 5000 units Q weekly. Plan: Continue Tymlos 80 mcg subQ daily. Assessment & Plan (04/05/2023 1:06 PM CDT): Patient with a previous history of osteoporosis. Potentially contributing to the patient's repeated falls and multiple fractures. Patient previously taking home medications of Tymlos 80 mcg subQ daily and vitamin D3 5000 units Q weekly. Plan: Continue Tymlos 80 mcg subQ daily. Assessment & Plan (04/04/2023 12:07 PM CDT): Patient with a previous history of osteoporosis. Potentially contributing to the patient's repeated falls and multiple fractures. Patient previously taking home medications of Tymlos 80 mcg subQ daily and vitamin D3 5000 units Q weekly. Plan: Continue Tymlos 80 mcg subQ daily. Assessment & Plan (04/03/2023 12:16 PM CDT): Patient with a previous history of osteoporosis. Potentially contributing to the patient's repeated falls and multiple fractures. Patient previously taking home medications of Tymlos 80 mcg subQ daily and vitamin D3 5000 units Q weekly. Plan: Continue Tymlos 80 mcg subQ daily. Assessment & Plan (04/02/2023 6:46 PM CDT): Patient with a previous history of osteoporosis. Potentially contributing to the patient's repeated falls and multiple fractures. Patient previously taking home medications of Tymlos 80 mcg subQ daily and vitamin D3 5000 units Q weekly. Plan: Continue Tymlos 80 mcg subQ daily. Assessment & Plan (01/31/2022 10:30 AM DIRECTOR RADIATION ONCOLOGY): Can continue home abaloparatide when her daughter is able to bring it in. H/O adenomatous polyp of colon 07/07/2013 Overview (03/11/2018): Adenomatous colon polyp followed by Dr. BARTON. 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 AKERS 1999 Recurrent stricture required sphincterotomy and stenting 07/06/2022 complicated by intraparenchymal hemorrhage and right hemisphere stroke Resolved Problems Problem Noted Date Diagnosed Date Resolved Date Recurrent major depression 01/31/2024 0 04/09/2024 Urinary urgency 09/26/2023 04/09/2024 Assessment & Plan (10/03/2023 8:49 PM DIRECTOR [employer]IATION ONCOLOGY): Urgency for 1 week, no dysuria or acute signs of UTI. No vaginal symptoms. Will check UA with C/S to r/o UTI. Push fluids. Infected insect bite 07/20/2023 023 Assessment & Plan (07/20/2023 12:36 PM CDT): See HPI and PE for pertinent details. Evaluation of bug bite today. Home assistants found bugs crawling in patient's bed today. Multiple lesions on back of legs consistent with insect bites. Area on back of right calf appears to be same type of bite that may be infected. Patient reports it was large, swollen and drained pus yesterday. No visible drainage today, however area is red and warm. Patient's aide states that her legs always appear red due to decreased circulation. Will Rx cephalexin to cover for infection, as she is at greater risk due to her decreased perfusion. Follow-up if no improvement at end of antibiotic course. She notes that she has called an boiler testing technician. Presence of artificial hip joint, left 07/12/2023 07/12/2023 Assessment & Plan (07/12/2023 2:30 PM CDT): Stable, sees Ortho regularly. No acute findings on exam. Advised patient that left leg pain is unlikely related to artifical joint. Bacteriuria, asymptomatic 07/09/2023 Assessment & Plan (07/09/2023 12:31 PM CDT): Asymptomatic. UA on admission with 4+ leukocytes, trace bacteria. Plan: Urine culture pending. Supportive care at this time. Chronic hyponatremia 07/09/2023 023 Assessment & Plan (07/09/2023 12:33 PM CDT): Asymptomatic. Baseline sodium 134. BNP reviewed on 07/09 and stable at 131. Plan: Monitor BMP. Supportive care. Previously recommended outpatient workup for possible SIADH CAD (coronary artery disease) 07/09/2023 07/12/2023 Shortness of breath 07/09/2023 07/12/20 23 Other chest pain 07/08/2023 07/12/2023 Assessment & Plan (07/09/2023 12:23 PM CDT): See assessment and plan for possible NSTEMI. Altered gait 06/28/2023 07/12/2023 Assessment & Plan (06/28/2023 3:26 PM CDT): Likely multifactorial due to arthritis, osteoporosis, decreased endurance from lung disease, and recent hip fracture. Generalized weakness as noted above. Cannot propel self in manual wheelchair. Steady with stand and pivot but cannot take any steps without assistance. Will order power chair to aide in mobility and ADLs. Acute right hip pain 06/28/2023 Assessment & Plan (06/28/2023 3:27 PM CDT): S/p fall 2-3 days ago. See assessment and bruising above. Will order XR to r/o fracture. Continue current regimen. Fall on same level from slip ping, tripping and stumbling without subsequent striking against object, initial encounter 06/28/20232022 Assessment & Plan (06/28/2023 3:20 PM CDT): 2-3 days ago, new pain to R hip. Bruising and tenderness as noted above. Will order XR to r/o fracture. Tenderness and weakness as noted above. Will send in order for power chair to help with mobility and frequent falls. Acute postoperative anemia d ue to expected blood loss 04/05/2023 07/12/2023 Assessment & Plan (04/06/2023 1:06 PM CDT): See assessment and plan for chronic anemia Assessment & Plan (04/05/2023 1:11 PM CDT): See assessment and plan for chronic anemia Status post open reduction a nd internal fixation (ORIF) of fracture 04/04/2023 04/09/2024 Assessment & Plan (06/28/2023 3:16 PM CDT): L hip repair s/p fall on 04/02/23. Healing well, mild tenderness and weakness as noted above. Keep follow with Ortho in 2 weeks. Continue current regimen. Will send in order for power chair today as patient would benefit from one. Assessment & Plan (04/06/2023 1:08 PM CDT): Patient with history of osteoporosis and recurrent falls. Reports she landed on her left hip with this most recent fall. X-ray with evidence of acute intertrochanteric fracture of left femoral neck with varus angulation. Orthopedics consulted in the ED, appreciate the recommendations. On 04/03, left open reduction internal fixation with intramedullary nailing of left hip conducted without difficulty, had 100 cc blood loss. Now reports pain is well-controlled. 1st line p.r.n. oxycodone. Pulses palpable on physical examination. Vascular flow appears to remain intact at this time. Respiratory jeter, she has baseline O2, nonsmoker and already maximized on triple therapy inhaler usage. Incentive spirometry added on 04/03. On 04/04 has begun working with PT and OT. Has been recommended for SNF placement. Plan: Orthopedics on consult. Internal fixation conducted 04/04. postop day 3 Continue pain regimen as above. Continue PT/OT Recommend SNF placement. Will require further outpatient investigations as to reasons of recurrent falls. Continue to savings counselor patient on limiting excessive opioid usage. Assessment & Plan (04/05/2023 1:06 PM CDT): Patient with history of osteoporosis and recurrent falls. Reports she landed on her left hip with this most recent fall. X-ray with evidence of acute intertrochanteric fracture of left femoral neck with varus angulation. Orthopedics consulted in the ED, appreciate the recommendations. On 04/03, left open reduction internal fixation with intramedullary nailing of left hip conducted without difficulty, had 100 cc blood loss. Now reports pain is well-controlled. 1st line p.r.n. oxycodone (additional 1st line [place] p.r.n. added by ortho), second-line p.r.n. Dilaudid and 3rd line p.r.n. morphine. Pulses palpable on physical examination. Vascular flow appears to remain intact at this time. Respiratory jeter, she has baseline O2, nonsmoker and already maximized on triple therapy inhaler usage. Incentive spirometry added on 04/03. On 04/04 has begun working with PT and OT. Has been recommended for SNF placement. Plan: Orthopedics on consult. Internal fixation conducted 04/04. postop day 2 Continue pain regimen as above. Continue PT/OT Recommend SNF placement. Will require further outpatient investigations as to reasons of recurrent falls. Continue to savings counselor patient on limiting excessive opioid usage. Assessment & Plan (04/04/2023 12:05 PM CDT): Patient with history of osteoporosis and recurrent falls. Reports she landed on her left hip with this most recent fall. X-ray with evidence of acute intertrochanteric fracture of left femoral neck with varus angulation. Orthopedics consulted in the ED, appreciate the recommendations. On 04/03, left open reduction internal fixation with intramedullary nailing of left hip conducted without difficulty, had 100 cc blood loss. Now reports pain is well-controlled. 1st line p.r.n. oxycodone (additional 1st line [place] p.r.n. added by ortho), second-line p.r.n. Dilaudid and 3rd line p.r.n. morphine. Pulses palpable on physical examination. Vascular flow appears to remain intact at this time. Respiratory jeter, she has baseline O2, nonsmoker and already maximized on triple therapy inhaler usage. Incentive spirometry added on 04/03. On 04/04 has begun working with PT and OT. Has been recommended for SNF placement. Plan: Orthopedics on consult. Internal fixation conducted 04/04 postop day 1 Continue pain regimen as above. Continue PT/OT Recommend SNF placement. Will require further investigations as to reasons of recurrent falls. Continue to savings counselor patient on limiting excessive opioid usage. Closed left hip fracture, sequela 04/02/2023 07/12/2023 Assessment & Plan (04/06/2023 1:05 PM CDT): See assessment and plan for status post ORIF. Assessment & Plan (04/05/2023 1:08 PM CDT): See assessment and plan for status post ORIF. Assessment & Plan (04/04/2023 12:06 PM CDT): See assessment and plan for status post ORIF. Assessment & Plan (04/03/2023 12:16 PM CDT): Patient with history of osteoporosis and recurrent falls. Reports she landed on her left hip with this most recent fall. X-ray with evidence of acute intertrochanteric fracture of left femoral neck with varus angulation. Orthopedics consulted in the ED, appreciate the recommendations. Reports poor pain management at this time. Have increased pain regimen to include 1st line p.r.n. oxycodone, second-line p.r.n. Dilaudid and 3rd line p.r.n. morphine in the interim pending possible surgical correction. Pulses palpable on physical examination. Vascular flow appears to remain intact at this time. Patient had a cardiology workup in the ED that was grossly negative. She would no complaints of angina at this time. Respiratory jeter, she has baseline O2, nonsmoker and already maximized on triple therapy inhaler usage. Incentive spirometry added on 04/03. Per the [facility] cardiology and respiratory risk factors calculation guidelines, she is at low risk for cardiac or respiratory events at this time. Plan: Orthopedics on consult. Internal fixation planned for 04/03. Continue pain regimen as above. Will require further investigations as to reasons of recurrent falls. Continue to savings counselor patient on limiting excessive opioid usage. Assessment & Plan (04/02/2023 6:55 PM CDT): Patient with history of osteoporosis and recurrent falls. Reports she landed on her left hip with this most recent fall. X-ray with evidence of acute intertrochanteric fracture of left femoral neck with varus angulation. Orthopedics consulted in the ED, appreciate the recommendations. Reports poor pain management at this time. Have increased pain regimen to include 1st line p.r.n. oxycodone, second-line p.r.n. Dilaudid and 3rd line p.r.n. morphine in the interim pending possible surgical correction. Pulses palpable on physical examination. Vascular flow appears to remain intact at this time. Plan: Orthopedics on consult. Continue pain regimen as above. Will require further investigations as to reasons of recurrent falls. Chronic anemia 04/02/2023 07/12/2023 Assessment & Plan (07/09/2023 12:35 PM CDT): Asymptomatic. Baseline hemoglobin 11.1. On admission, hemoglobin 9.2. On 07/09, CBC reviewed and hemoglobin stable 9.1. Plan: Monitor CBC. Transfuse if less than 8 or symptomatic given cardiac risk. Assessment & Plan (04/06/2023 12:54 PM CDT): Per chart review, baseline hemoglobin of 10 2 weeks ago. On 04/02, hemoglobin of 10.2. Denies any syncope or active bleeding at this time. Had estimated 100 cc blood loss during surgical procedure on 04/03. On 04/06, stable increase to 8.6. Remains asymptomatic at this time. Acute on chronic decline was likely secondary to recent surgical procedure. Remains without signs of active bleeding. Plan: Will monitor clinically at this time. Consider transfusing if less than 7 or becomes symptomatic. Assessment & Plan (04/05/2023 1:08 PM CDT): Per chart review, baseline hemoglobin of 10 2 weeks ago. On 04/02, hemoglobin of 10.2. Denies any syncope or active bleeding at this time. Had estimated 100 cc blood loss during surgical procedure on 04/03. On 04/06, acute decline to 8.8. Remains asymptomatic at this time. Acute on chronic decline likely secondary to recent surgical procedure. Remains without signs of active bleeding. Plan: Will continue monitor daily CBC. Consider transfusing if less than 7 or becomes symptomatic. Assessment & Plan (04/04/2023 12:09 PM CDT): Per chart review, baseline hemoglobin of 10 2 weeks ago. On 04/02, hemoglobin of 10.2. Denies any syncope or active bleeding at this time. Had estimated 100 cc blood loss during surgical procedure on 04/03. On 04/04, acute decline to 8.8. Remains asymptomatic at this time. Plan: Will continue monitor daily CBC. Consider transfusing if less than 7 or becomes symptomatic. Assessment & Plan (04/03/2023 12:17 PM CDT): Per chart review, baseline hemoglobin of 10 2 weeks ago. On 04/02, hemoglobin of 10.2. Denies any syncope or active bleeding at this time. Hemoglobin stable at 10.5 on 04/03. Plan: Will continue monitor daily CBC. Consider transfusing if less than 7 or becomes symptomatic. Assessment & Plan (04/02/2023 6:42 PM CDT): Per chart review, baseline hemoglobin of 10 2 weeks ago. On 04/02, hemoglobin of 10.2. Denies any syncope or active bleeding at this time. Plan: Will continue monitor daily CBC. Consider transfusing if less than 7 or becomes symptomatic. Hospital discharge follow-up 03/25/2023 07/06/2023 Assessment & Plan (03/25/2023 10:05 PM CDT): Hospital details as noted above. Med reconciliation completed in office today. Patient mostly concerned about her legs, testing done at [facility] reviewed. Was referred to vascular upon discharge, Encouraged her to call and make appointment [facility]OM. Will rx low dose Prednisone for vasculitis/tenderness as noted in assessment. Continue with elevation and compression socks. Ice as tolerated. Hyponatremic upon hospital discharge-see plan elsewhere. Keep follow in 2 months, sooner if needed. Hyponatremia 03/16/2023 07/06/2023 Assessment & Plan (04/06/2023 1:05 PM CDT): On admission, sodium of 132. On 04/02, received IV fluids. Potentially secondary to possible dehydration. Clinically euvolemic at this time. On 04/04, sodium raysa within normal limits. On 04/06 decline to 126, potential secondary to recent NPO status vs. Recent hold of home Lasix use. ProBNP on 04/06 elevated at 2669. Chart review shows her prior baseline was approximately 133. Home dose of Lasix now resumed on 04/06. Plan: Continue to monitor daily BMP. Continue home dose of Lasix 20 mg p.o. b.i.d.. Assessment & Plan (04/05/2023 1:10 PM CDT): On admission, sodium of 132. On 04/02, received IV fluids. Potentially secondary to possible dehydration. Clinically euvolemic at this time. On 04/04, sodium raysa within normal limits. On 04/05 decline to 133, likely secondary to recent NPO status. Plan: Continue to monitor daily BMP. Oral hydration encouraged at this time. Will limit fluids to avoid volume overloading. Assessment & Plan (04/03/2023 12:19 PM CDT): On admission, sodium of 132. On 04/02, received IV fluids. Potentially secondary to possible dehydration. Clinically euvolemic at this time. On 04/03, slight decline to 131. Plan: Continue to monitor daily BMP. Continue normal saline 75 cc/hour for 24 hours. Will limit fluids to avoid volume overloading. Assessment & Plan (04/02/2023 6:48 PM CDT): On admission, sodium of 132. On 04/02, received IV fluids. Potentially secondary to possible dehydration. Clinically euvolemic at this time. Plan: Continue to monitor daily BMP. Continue normal saline 50 cc/hour Assessment & Plan (03/25/2023 9:58 PM CDT): noted upon recent hospital admission, was 133 upon discharge. likely related to spironolactone use. Leg swelling and redness as noted above. No other acute findings. Continue spironolactone for now, repeat BMP before next visit in 2 months. Primary hypertension 03/16/2023 023 Assessment & Plan (07/12/2023 2:29 PM CDT): BP stable in office today on current therapy. No acute findings on exam. Continue current regimen and low salt diet. Will rx trental for leg pain/PVD as noted above. Assessment & Plan (04/06/2023 1:06 PM CDT): History of hypertension. Vital signs reviewed on 04/06 and presently stable. Temp: [36.2 C (97.2 F)-36.8 C (98.2 F)] 36.7 C (98.1 F) Pulse: [70-92] 82 Resp: [16-18] 16 BP: (155-169)/(59-69) 155/59 Plan: Continue on home medications of Lopressor 25 mg b.i.d.. Assessment & Plan (04/05/2023 1:10 PM CDT): History of hypertension. Vital signs reviewed on 04/05 and presently stable. Temp: [36.3 C (97.4 F)-36.9 C (98.5 F)] 36.8 C (98.2 F) Pulse: [66-95] 83 Resp: [16-20] 16 BP: (120-148)/(49-59) 148/59 Plan: Continue on home medications of Lopressor 25 mg b.i.d.. Assessment & Plan (04/04/2023 12:14 PM CDT): History of hypertension. Vital signs reviewed on 04/04 and presently stable. Temp: [36.2 C (97.2 F)-36.9 C (98.4 F)] 36.9 C (98.4 F) Pulse: [76-95] 78 Resp: [16-28] 20 BP: (130-164)/(52-96) 137/53 Plan: Continue on home medications of Lopressor 25 mg b.i.d.. Assessment & Plan (04/03/2023 12:20 PM CDT): History of hypertension. Vital signs reviewed on 04/03 and presently stable with acute elevations. Elevations potentially secondary to present pain. Temp: [36.6 C (97.9 F)-38.3 C (101 F)] 36.6 C (97.9 F) Pulse: [72-84] 78 Resp: [19-20] 20 BP: (135-160)/(59-89) 155/59 Plan: Continue on home medications of Lopressor 25 mg b.i.d.. Assessment & Plan (04/02/2023 6:50 PM CDT): History of hypertension. Vital signs reviewed on 04/02 and presently stable with acute elevations. Elevations potentially secondary to present pain. Temp: [36.7 C (98.1 F)-38.3 C (101 F)] 38.3 C (101 F) Pulse: [72-84] 82 Resp: [15-20] 20 BP: (132-160)/(60-99) 160/64 Plan: Continue on home medications of Lopressor 25 mg b.i.d.. Assessment & Plan (03/25/2023 9:59 PM CDT): BP stable in office today on current therapy. Leg swelling and redness as noted above. No acute exam findings. Continue current regimen and low salt diet. Cellulitis of lower extremit y, unspecified laterality 03/15/2023 03/25/2023 Cellulitis of lower extremit y, unspecified laterality 03/10/2023 03/14/2023 Pneumonia due to COVID-19 virus 02/02/2023 03/25/2023 Bilateral lower leg cellulitis 01/08/2023 03/25/2023 Assessment & Plan (03/06/2023 8:58 AM CDT): Symptoms for 3 days. assessment as noted above. Will rx Keflex as directed. Elevate feet as much as possible, continue to wear compression socks while up during the day. Follow in 2 weeks. Bilateral lower extremity edema 01/03/2023 02/26/2023 Assessment & Plan (01/03/2023 2:19 PM DIRECTOR RADIATION ONCOLOGY): Chronic problem, recently exacerbated times about 1 week Physical examination as documented EKG 1 month ago - sinus rhythm, WNL, see chart for details Echo from 06/2022: Conclusions: 1. Grossly normal left ventricular systolic function based on limited views. Inadequate for detailed regional wall motion assessment. Ejection Fraction is estimated at 70-75 %. Normal left ventricular diastolic function. Normal left ventricular cavity size. Mild concentric left ventricular hypertrophy. 2. Normal right ventricular systolic function. Normal right ventricular size. 3. There is mild enlargement of the left atrium. 4. Saline contrast study negative for R to L shunt. Patient has documented history of CHF - suspect likely CHF exacerbation Recommended furosemide and potassium supplementation, ProBNP today, repeat BMP in 1 week, and follow up phone call to office in 1 week - patient agreeable to plan Orders for [facility] STAFF to arrange ProBNP - bilateral lower extremity edema Please coordinate BMP in 1 week - bilateral lower extremity edema, medication monitoring Orders for Shannon Sanchez to arrange Start furosemide as ordered - start with 40mg daily for a few days, then decrease to 20mg daily for a few days IF symptoms have improved significantly - can titrate dose based on swelling and shortness of breath Start potassium once daily when taking furosemide Continue other medications as prescribed Continue monitoring symptoms - report persistent or worsening symptoms to the office or go to ER Call office in 1 week with an update on condition - collect repeat BMP in 1 week as well, office to follow up after receiving results Follow up with Dr. Michael as scheduled or sooner if necessary Iron deficiency anemia due t o chronic blood loss 12/22/2022 10/16/2024 Assessment & Plan (07/13/2024 10:46 PM CDT): Chronic anemia dating back to at least 2017 Intolerant of iron both oral and IV. No signs of blood loss Labs from 04/2024 showed stable Hgb 10.7, mildly decreased TS of 19%, improved from previously, normal iron and B12. Previous colonoscopy 11/2016 showed three 2-6 mm tubular adenomas, tortuous colon EGD 11/2016 with normal gastric and duodenal bx Plan Will defer endoscopy for anemia work up given overall stable/ improved Hgb with no signs of active bleeding, especially in the setting of her multiple co- morbidities I do not feel that the benefits outweigh the risks of having her undergo sedation and invasive procedures Will continue to monitor her blood counts routinely and watch for signs of bleeding Assessment & Plan (01/08/2024 6:31 PM DIRECTOR RADIATION ONCOLOGY): Chronic anemia dating back to at least 2017 Intolerant of iron both oral and IV. No signs of blood loss. 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 Pancreatic cystic lesion at the neck measuring 2.1 x 0.9 cm 1 year follow-up recommended. Previous colonoscopy 11/2016 showed three 2-6 mm tubular adenomas, tortuous colon EGD 11/2016 with normal gastric and duodenal bx ERCP 06/2022 with extension of previous biliary/pancreatic sphincterotomies EUS 08/2022 dilated pancreatic duct cystic lesion in the pancreas concerning for IPMN with fluid studies negative for malignancy, dilation in the CBD up to 16 mm due to papillary stenosis Plan Will defer endoscopy for anemia work up given overall improved Hgb with no signs of active bleeding, especially in the setting of her multiple co-morbidities I do not feel that the benefits outweigh the risks of having her undergo sedation and invasive procedures Will continue to monitor her blood counts routinely and watch for signs of bleeding Closed Roberts's fracture of left radius, initial encounter 12/03/2022 03/14/2023 Generalized weakness 12/03/2022 023 Paroxysmal atrial fibrillation 09/13/2022 11/06/2022 Other iron deficiency anemias 09/13/2022 11/06/2022 Insomnia due to medical condition 09/13/2022 04/09/2024 Traumatic rhabdomyolysis, initial encounter 09/08/2022 12/18/2022 Presence of pancreatic duct stent 07/15/2022 08/15/2022 Right-sided anterior cerebra l circulation infarction 07/15/2022 01/05/2025 Overview (07/15/2022): ADMISSION 07/05/2022 - 07/13/2022 (8 days) [facility] patient also developed sudden onset of left lower extremity weakness. The patient was found to have acute right CRISTINO infarct with a small microhemorrhage. Neurology was consulted. PT, OT was consulted. Patient is now going to a assisted facility for further rehab therapy. Assessment & Plan (04/09/2024 5:09 PM CDT): >>ASSESSMENT AND PLAN FOR HISTORY OF CVA (CEREBROVASCULAR ACCIDENT) WRITTEN ON 04/06/2023 1:05 PM BY PATRICIO ARAGON MD In June 2022 had a CVA to her right CRISTINO. Reports has not had any Neurology followups since. Previously on home medications of Lopressor 25 mg b.i.d. and Plavix 75 mg daily. Plavix previously on hold for surgical correction of left hip. Plavix resumed on 04/04. Plan: Continue Lopressor 25 mg b.i.d.. Continue Plavix 75 mg daily. Consider further outpatient neurological workup. Assessment & Plan (04/09/2024 5:09 PM CDT): >>ASSESSMENT AND PLAN FOR HISTORY OF CVA (CEREBROVASCULAR ACCIDENT) WRITTEN ON 04/05/2023 1:10 PM BY PATRICIO ARAGON MD In June 2022 had a CVA to her right CRISTINO. Reports has not had any Neurology followups since. Previously on home medications of Lopressor 25 mg b.i.d. and Plavix 75 mg daily. Plavix previously on hold for surgical correction of left hip. Plavix resumed on 04/04. Plan: Continue Lopressor 25 mg b.i.d.. Continue Plavix 75 mg daily. Will consider further neurological workup. Assessment & Plan (04/09/2024 5:09 PM CDT): >>ASSESSMENT AND PLAN FOR HISTORY OF CVA (CEREBROVASCULAR ACCIDENT) WRITTEN ON 04/04/2023 12:13 PM BY PATRICIO ARAGON MD In June 2022 had a CVA to her right CRISTINO. Reports has not had any Neurology followups since. Previously on home medications of Lopressor 25 mg b.i.d. and Plavix 75 mg daily. Plavix previously on hold for surgical correction of left hip. Plavix now resumed on 04/04. Plan: Continue Lopressor 25 mg b.i.d.. Continue Plavix 75 mg daily. Will consider further neurological workup. Assessment & Plan (04/09/2024 5:09 PM CDT): >>ASSESSMENT AND PLAN FOR HISTORY OF CVA (CEREBROVASCULAR ACCIDENT) WRITTEN ON 04/03/2023 12:19 PM BY PATRICIO ARAGON MD In June 2022 had a CVA to her right CRISTINO. Reports has not had any Neurology followups since. Previously on home medications of Lopressor 25 mg b.i.d. and Plavix 75 mg daily. Plavix presently on hold for possible surgical correction of left hip. Plan: Continue Lopressor 25 mg b.i.d.. Plavix 75 mg daily on hold at this time. Will consider further neurological workup. Assessment & Plan (04/09/2024 5:09 PM CDT): >>ASSESSMENT AND PLAN FOR HISTORY OF CVA (CEREBROVASCULAR ACCIDENT) WRITTEN ON 04/02/2023 6:58 PM BY PATRICIO ARAGON MD In June 2022 had a CVA to her right CRISTINO. Reports has not had any Neurology followups since. Previously on home medications of Lopressor 25 mg b.i.d. and Plavix 75 mg daily. Plavix presently on hold for possible surgical correction of left hip. Plan: Continue Lopressor 25 mg b.i.d.. Plavix 75 mg daily on hold at this time. Will consider further neurological workup. Assessment & Plan (04/09/2024 5:09 PM CDT): >>ASSESSMENT AND PLAN FOR HISTORY OF CVA (CEREBROVASCULAR ACCIDENT) WRITTEN ON 06/28/2023 3:18 PM BY RHONA BREEN NP No residual symptoms, generalized weakness as noted above likely due to arthritis and decreased endurance from COPD requiring o2. No neurological deficits on exam today. Continue current regimen. Will order power chair to help with mobility. Severe protein-calorie malnutrition 07/07/2022 02/26/2023 Centrilobular emphysema 07/06/2022 08 Pancreas cyst 06/23/2022 07/15/2022 Assessment & Plan (06/23/2022 12:01 PM CDT): Noted recently on MRI imaging. Will repeat the MRI to follow on the size. This this is of new onset the of size increase referral to further evaluation at [facility] it will be recommended. 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 She does have some response with Amitiza, so we will increase the dose to 24 micro g twice daily and new prescription was provided. Follow-up in 3 months. Assessment & Plan (03/15/2022 5:22 PM CDT): Amitiza eight micro g twice daily. We discussed the diet. Will see the patient back in follow-up in 3 months Pyuria 01/31/2022 07/15/2022 Assessment & Plan (01/31/2022 10:34 AM DIRECTOR RADIATION ONCOLOGY): UA on admission showed 11-20 WBCs and 1+ leuk esterase, but no bacteria were seen in the patient denies dysuria. Monitor for urinary symptoms, no indication for antibiotics at this time. Cat scratch 01/30/2022 07/15/2022 Assessment & Plan (01/30/2022 2:49 PM DIRECTOR RADIATION ONCOLOGY): Patient has multiple cat scratches and bites on the bilateral UE. This has been a chronic recurrent issue. We have discussed getting rid of cats to avoid repeat infections, she however, has not been agreeable to this. She is being sent to the ER for evaluation of above abdominal pain and this can be evaluated further. Cervicalgia 01/13/2022 07/15/2022 Chronic thoracic spine pain 01/13/2022 07/15/2022 Compression fracture of thoracic vertebra 01/13/2022 07/15/2022 Insomnia secondary to chronic pain 01/13/2022 11/06/2022 Cat bite of hand, subsequent encounter 11/11/2021 04/09/2024 Assessment & Plan (01/31/2024 3:18 PM DIRECTOR RADIATION ONCOLOGY): Lesion to R dorsal hand as noted above, no further signs of acute infection, surrounding redness is likely from skin healing not infection. Rxd Bacitracin as instructed. Cleanse twice daily with soap and water, dry well then apply bacitracin and dry bandage. Educated on signs of worsening infection-call with any of these. Assessment & Plan (11/16/2021 2:38 PM DIRECTOR RADIATION ONCOLOGY): Patient returns for follow up on cat bite. Wound appears to be healing well. Erythema and pain have improved as well. She denies any associated fever. She went after last visit and had Tdap. She was encouraged to complete antibiotic as prescribed. Today at visit noted to have new bite on her rt forearm. It appears clean and dry at this time. Discussed with patient that if cat is continuing to bite it would be in her best interest to remove from the home. She states she cannot do that. Discussed for her safety and well being she should. Will call with recurrent issue or concern. Assessment & Plan (11/11/2021 4:52 PM DIRECTOR RADIATION ONCOLOGY): Patient has erythema and warmth, with mild swelling of the left hand dorsal aspect that occurred after a cat bat last Sunday. She used bacitracin with no improvement. She is reporting associated pain. She denies any fever or chills. Appears to be cellulitis surrounding the bite. We will have her get xray today to r/o any foreign body noted. She will begin antibiotic therapy as prescribed. She appears to have taken doxycyline in the past without issue, which she will do so again. She was instructed should she have any increasing redness,warmth pain, fever or flu like symptoms to go to ER. She will have updated Tdap. Cat is vaccinated. She will return in one week or sooner if needed. Hemoptysis 11/11/2021 12/21/2021 Assessment & Plan (11/11/2021 4:29 PM DIRECTOR RADIATION ONCOLOGY): Patient reports episode earlier this week with vomiting and coughing up blood. She reports no clots and that it was a one time episode with no further issues. On exam today oxygen level 92% on home O2 and lungs clear. We will do labs and CXR to r/o any acute cardiopulmonary abnormality or anemia. She will follow up next week or go to ER with any recurrent issues. Urinary incontinence 06/28/2021 022 Vulvar dystrophy 06/28/2021 12/21/2021 Chronic low back pain 03/16/20202021 Assessment & Plan (11/16/2021 2:40 PM DIRECTOR RADIATION ONCOLOGY): Patient has chronic back pain and takes multiple pain medication therapies. She follows with pain management, but would like to see someone closer to home. Will send referral. Cervical radiculopathy 03/16/202007/15 Peripheral neuropathy 03/16/20202021 Closed displaced fracture of third metatarsal bone of right foot 01/06/2020 05/25/2020 Displaced fracture of first metatarsal bone of right foot with routine healing 01/06/202005/25 Closed fracture of proximal end of left fibula with routine healing 12/16/2019 05/25/2020 Displaced fracture of second metatarsal bone of right foot with routine healing 12/16/201905/25 Nausea 11/04/2018 12/21/2021 Lymphedema 10/06/2018 06/28/2023 Iron deficiency anemia 10/06/201812/21 Mass of upper lobe of right lung 10/06/2018 05/25/2020 Overview (10/06/2018): The chest CT June [address] [facility] resolved IMPRESSION: 1. The previously described questionable/suspicious lung opacities have resolved. 2. There are new small nodule seen in the lungs. Recommend follow-up in 6 months to confirm stability and/or resolution. 3. Moderate centrilobular emphysema Electronically signed by: Guy Cantrell M.D. IMPRESSION: MODERATE CENTRILOBULAR EMPHYSEMA. INTERVAL RIGHT UPPER LOBE 2.1 CM OPACITY WITH BRONCHIAL THICKENING POSSIBLY ATELECTASIS. INTERVAL RIGHT MIDDLE LOBE IRREGULAR 11 MM NODULAR DENSITY. SUGGEST 3 MONTH FOLLOW-UP, PET/CT OR SAMPLING. ATHEROSCLEROTIC AORTA WITH MILD CORONARY ARTERY CALCIFICATION. MODERATE TO SEVERE THORACIC AND L1 COMPRESSION FRACTURES WITH KYPHOSIS AND GIBBUS DEFORMITY. Radha Calabrese M.D. 04/10/2018 Venous stasis dermatitis of both lower extremities 02/03/2018 09/14/2020 Arthritis 09/02/2017 07/15/2022 Paroxysmal atrial fibrillation 05/07/2017 04/09/2024 Overview (09/02/2017): IMPRESSION: MONITORING STUDY Event monitoring was performed from 02/18/16 to 03/10/16. The baseline transmission showed sinus rhythm. Subsequent transmissions were by automatic triggering without symptoms and showed sinus rhythm except for one transmission on 02/23/16 which showed a 28 beat run of paroxysmal supraventricular tachycardia/paroxysmal atrial fibration which was asymptomatic. Dr. Lambert was aware of the finding and Dr. Michael was informed of this report. Interpreting Physician: DR ALESHA ROMANO M.D. Read on: Mar 13 2016 1:53P Transcribed by: marvin On: Mar 14 2016 8:19A Approved Electronically by: JUAN ANTONIO Correa, DR ALESHA Byrd on: Mar 14 2016 9:49A Assessment & Plan (04/06/2023 1:06 PM CDT): Per patient, she has a history of paroxysmal atrial fibrillation or possible tachycardia. Previously rate controlled with Lopressor 25 mg daily. Denies any symptoms at this time. Plan: Continue Lopressor 25 mg daily. Assessment & Plan (04/05/2023 1:10 PM CDT): Per patient, she has a history of paroxysmal atrial fibrillation or possible tachycardia. Previously rate controlled with Lopressor 25 mg daily. Denies any symptoms at this time. Plan: Continue Lopressor 25 mg daily. Assessment & Plan (04/04/2023 12:13 PM CDT): Per patient, she has a history of paroxysmal atrial fibrillation or possible tachycardia. Previously rate controlled with Lopressor 25 mg daily. Denies any symptoms at this time. Plan: Continue Lopressor 25 mg daily. Assessment & Plan (04/03/2023 12:20 PM CDT): Per patient, she has a history of paroxysmal atrial fibrillation or possible tachycardia. Previously rate controlled with Lopressor 25 mg daily. Denies any symptoms at this time. Plan: Continue Lopressor 25 mg daily. Assessment & Plan (04/02/2023 6:45 PM CDT): Per patient, she has a history of paroxysmal atrial fibrillation or possible tachycardia. Previously rate controlled with Lopressor 25 mg daily. Denies any symptoms at this time. Plan: Continue Lopressor 25 mg daily. 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 I thing moving her bowels help with the pain. Will continue conservative approach with her current medications. 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 I suspect this is mainly neuropathic pain. I do not think any intervention is needed at this point. She can continue dicyclomine. She has been using some and Percocet for a long time. Chronic rhinitis 05/07/2017 03/11/2018 Chronic pain disorder 05/07/20172024 Assessment & Plan (01/31/2024 3:16 PM DIRECTOR RADIATION ONCOLOGY): C/o worsening neuropathy to both legs, no acute findings or signs of DVT or worsening vascular issues. Sees Ortho for chronic pain and sees cardiology for CHF. No acute findings on physical exam, vitals stable. Will increase Duloxetine to 30mg BID. Keep follow next month as scheduled. Assessment & Plan (07/09/2023 12:27 PM CDT): Known history of chronic pain. Home medications of Percocets q.4 hours p.r.n.. Denies any acute pain at this time. Plan: On admission, started on OxyContin 20 mg b.i.d.. Consider resuming home regimen post cardiac catheterization. Assessment & Plan (04/06/2023 1:09 PM CDT): Per chart review patient previously taking several high-dose opioids and additional lidocaine patches. Patient cautioned on the use of chronic opioids. Potentially contributing to the patient's current lack of pain control. Her chronic pain regimen is presently on hold due to upcoming surgery. Have reduced lidocaine patch to 1 a day initially. Reports that her home pain medications are prescribed by pain management. Since admission, the patient has been declining a portion of her home laxatives. Plan: Continue p.o. oxycodone 10 mg q.6 hours p.r.n. 1st line for pain control. Continued patient's home bowel regimen medications for possible opioid induced constipation. Patient encouraged to comply with laxatives. Assessment & Plan (04/05/2023 1:08 PM CDT): Per chart review patient previously taking several high-dose opioids and additional lidocaine patches. Patient cautioned on the use of chronic opioids. Potentially contributing to the patient's current lack of pain control. Her chronic pain regimen is presently on hold due to upcoming surgery. Have reduced lidocaine patch to 1 a day initially. Reports that her home pain medications are prescribed by pain management. Since admission, the patient has been declining a portion of her home laxatives. Plan: Continue p.o. oxycodone 10 mg q.6 hours p.r.n. 1st line, 0.5 mg Dilaudid q.4 hours p.r.n. second-line and 1 mg IV morphine q.2 hours p.r.n. 3rd line for pain control. Additional 1st line p.r.n. [place] added by Orthopedics on 04/03. Continued patient's home bowel regimen medications for possible opioid induced constipation. Patient encouraged to comply with laxatives. Assessment & Plan (04/04/2023 12:11 PM CDT): Per chart review patient previously taking several high-dose opioids and additional lidocaine patches. Patient cautioned on the use of chronic opioids. Potentially contributing to the patient's current lack of pain control. Her chronic pain regimen is presently on hold due to upcoming surgery. Have reduced lidocaine patch to 1 a day initially. Reports that her home pain medications are prescribed by pain management. Since admission, the patient has been declining a portion of her home laxatives. Plan: Continue p.o. oxycodone 10 mg q.6 hours p.r.n. 1st line, 0.5 mg Dilaudid q.4 hours p.r.n. second-line and 1 mg IV morphine q.2 hours p.r.n. 3rd line for pain control. Additional 1st line p.r.n. [place] added by Orthopedics on 04/03. Continued patient's home bowel regimen medications for possible opioid induced constipation. Patient encouraged to comply with laxatives. Assessment & Plan (04/03/2023 12:18 PM CDT): Per chart review patient previously taking several high-dose opioids and additional lidocaine patches. Patient cautioned on the use of chronic opioids. Potentially contributing to the patient's current lack of pain control. Her chronic pain regimen is presently on hold due to upcoming surgery. Have reduced lidocaine patch to 1 a day initially. Reports that her home pain medications are prescribed by pain management. Plan: Continue p.o. oxycodone 10 mg q.6 hours p.r.n. 1st line, 0.5 mg Dilaudid q.4 hours p.r.n. second-line and 1 mg IV morphine q.2 hours p.r.n. 3rd line for pain control. Pain regimen to be controlled by Orthopedics after surgical correction. Continued patient's home bowel regimen medications for possible opioid induced constipation. Assessment & Plan (04/02/2023 6:41 PM CDT): Per chart review patient previously taking several high-dose opioids and additional lidocaine patches. Patient cautioned on the use of chronic opioids. Potentially contributing to the patient's current lack of pain control. Her chronic pain regimen is presently on hold due to upcoming surgery. Have reduced lidocaine patch to 1 a day initially. On 04/02, will do 1st line p.o. pain control for prolonged affect. Plan: Continue p.o. oxycodone 10 mg q.6 hours p.r.n. 1st line, 0.5 mg Dilaudid q.4 hours p.r.n. second-line and 1 mg IV morphine q.2 hours p.r.n. 3rd line for pain control. Pain regimen to be controlled by Orthopedics after surgical correction. Continued patient's home bowel regimen medications for possible opioid induced constipation. Assessment & Plan (01/31/2022 10:28 AM DIRECTOR RADIATION ONCOLOGY): Home Xtampza replaced with OxyContin while inpatient. Continue home Cymbalta, Soma, and Percocet p.r.n. Dilaudid available p.r.n. for acute pain as well. Chronic kidney disease, stage II (mild) 02/14/2016 05/07/2017 Overview (03/01/2017): CKD stage G2/A2, GFR 60-89 and albumin creatinine ratio 30-299 mg/g Unspecified fracture of unsp ecified forearm, initial encounter for closed fracture 06/27/2015 Migraine 06/09/2014 03/11/2018 Overview (03/01/2017): MIGRNE UNSP WO NTRC MGRN Swelling 04/11/2014 03/11/2018 Overview (03/01/2017): Edema Dental caries noted on examination 04/11/2014 03/11/2018 Overview (03/11/2018): DENTAL CARIES NOS, all teeth pulled full dentures as of February 2017 Prediabetes 04/11/2014 03/11/2018 Overview (03/11/2018): DMII WO CMP NT ST UNCNTR, developed diabetes as of February 2018 visit Osteoarthritis 04/11/2014 03/11/2018 Overview (03/02/2017): DJD (degenerative joint disease) Hyponatremia 09/16/2013 03/14/2023 Overview (03/01/2017): Hyponatremia Biliary colic 12/04/2012 03/11/2018 Overview (03/01/2017): Biliary colic Fibromyalgia 11/04/2012 03/11/2018 Subjective carotid bruit 11/26/2010 Overview (03/01/2017): Right carotid bruit Sphincter of Oddi dysfunction 07/15/2022 Left wrist fracture 12/18/19 23 Anemia 02/26/2023 Acute traumatic pain 023 Muscular deconditioning 03/26 Leg swelling 07/06/2023 Fall 10/03/2023 Assessment & Plan (07/20/2023 12:53 PM CDT): Fell yesterday at home, slipped in a milkshake knocked over by her cat, hit her left hip. Slight bruise and swelling to L hip noted on exam. L hip surgery 03/2023. Xray today- no fracture note, surgery stable. -Use ice/tylenol for pain -Notify ortho of fall Encounters Date Type Department Care Team Description 01/20/2025 1:00 PM DIRECTOR RADIATION ONCOLOGY Office Visit [facility] at [address] [place] [address] Yoly Ramirez MD Chronic GERD (Primary Dx); Chronic nausea; Poor appetite; Weight loss; Constipation due to opioid therapy; IPMN (intraductal papillary mucinous neoplasm) 01/19/2025 Telephone [facility] at [address] [place] [address] Estefanía Myers MA 12/29/2024 Telephone [facility] [address] [facility] [address] [place] [address] Nishi Michael MD tilt test results 12/25/2024 11:45 AM DIRECTOR RADIATION ONCOLOGY Office Visit [facility] [address] [place] [address] [address] [place] [address] Ceasar Teran MD Chronic migraine without aura without status migrainosus, not intractable (Primary Dx); Dizziness and giddiness; Double vision from Last 3 Months Immunizations Immunization Administration Dates Next Due Influenza, Quad, Adjuvantate d, Intramuscular 09/07/2022,08/12/2021 Influenza, Quadrivalent, Hig h Dose, Preservative Free, Intrr 09/14/2020 Influenza, Quadrivalent, Spl it, Preservative Free, Intramuscular 09/07/2022 Influenza, Trivalent, Adjuva nted, Intramuscular 08/27/2024,08/08/2018 Influenza, Trivalent, High D ose, Split, Preservative Free, Intramuscular 08/27/2019,08/21/2017,08/11/2016,09/02 Influenza, Trivalent, IM (MDV) 09/03/2015,2006 Influenza, Unspecified 09/07/2022,08/08/2018, Influenza, Whole 08/26/2008 Moderna SARS-CoV-2 Monovalen t Vaccination (12+ YRS) 02/16/2021,01/19/2021 PPD TEST 09/30/2024 Pfizer Sars-Cov-2 Bivalent V accination (12+ YRS) 09/30/2024 Pneumococcal Conjugate 7-Valent 09/17/2003 Pneumococcal Conjugate PCV 13 09/18/2022, 014 Pneumococcal Polysaccharide PPV23 08/25/2015,11/2008,09/17/2003 RSV, Bivalent, Protein Subun it Rsvpref, Diluent (Abrysvo) 11/05/2023 Tdap 11/11/2021,10/28/2014 ZOSTER LIVE 11/26/2007,10/23/2007,09/26/2007 ZOSTER Recombinant 05/07/2019,02/21/2019 Surgical History Surgery Date Site/Laterality Comments APPENDECTOMY 11/26/1990 - 11/25/1991 Appendectomy CHOLECYSTECTOMY 11/26/1995 - 11/25/1996 Cholecystectomy AUGMENTATION MAMMOPLASTY 11/26/1989 - 11/25/1990 augmentation mammoplasty OTHER SURGICAL HISTORY stents to pancreatic and biliary ducts COLONOSCOPY W/ BIOPSIES AND POLYPECTOMY 11/28/2016 Biopsy x 2 adenomatous colon polyps, Dr. BARTON COLONOSCOPY 11/26/2004 - 11/25/2005 Colonic polyps: colonosopy with polypectomy BREAST IMPLANT REMOVAL 11/26/1995 - 11/25/1996 breast implants removed KNEE SURGERY R knee meniscus ERCP W/ SPHICTEROTOMY ERCP/sphincterotomy TUBAL LIGATION 11/26/1989 - 11/25/1990 Sterilization: Bilateral tubal ligation GYNECOLOGIC CRYOSURGERY 11/26/1983 - 11/25/1984 Dysplasia of cervix: Cyrotherapy TRANSDUODENAL SPHINCTEROTOMY / SPHINCTEROPLASTY 07/06/2022 Dr. AKERS biliary stricture dilated, stenting extended from previous stent ORIF FEMORAL NECK FRACTURE W / DHS 04/02/[address] Pineda [facility] Medical History Medical History Date Comments Chronic obstructive pulmonar y disease (HCC) COPD Diabetes mellitus (HCC) Diabetes Gastroesophageal reflux disease GERD Esophageal dysmotility Esophagea l dysmotility Tachycardia Tachycardia Osteopenia Osteopenia Headache, migraine Headache, pippa daniel Dental caries Dental caries Abnormal alkaline phosphatase test Abnormal alkaline phosphatase Colonic polyp Colonic polyps Fibromyalgia Fibromyalgia, C4 C5 herniated disks H/O tubal ligation Sterilization Dysplasia of cervix Dysplasia of cervix CKD (chronic kidney disease) Depression Osteoporosis 5, not currently Para 5 Tobacco use 1ppd 38 yrs quit Shortness of breath Iron deficiency anemia 10/06/2018 Arthritis Low back pain Mid back pain Chronic thoracic spine pain 01/13/2022 Presence of pancreatic duct stent 07/15/2022 Moderate malnutrition (CMS/HCC) 07/07/2022 Stroke (HCC) Unspecified fracture of unsp ecified forearm, initial encounter for closed fracture 06/27/2015 Status post open reduction a nd internal fixation (ORIF) of fracture 04/04/2023 Recurrent major depression 01/31/2024 Paroxysmal atrial fibrillation (HCC) 05/07/2017 IMPRESSION: MONITORING STUDY Event monitoring was performed from 02/18/16 to 03/10/16. The baseline transmission showed sinus rhythm. Subsequent transmissions were by automatic triggering without symptoms and showed sinus rhythm except for one transmission on 02/23/16 which showed a 28 beat run of paroxysmal supraventricular tachycardia/paroxysmal atrial fibration which was asymptomatic. Dr. Medina Insomnia due to medical condition 09/13/2022 Vitamin D deficiency 06/21/2022 Vitamin-D l tai extremely low at 07 June 2022, started on vitamin-D protocol Iron deficiency anemia due t o chronic blood loss 12/22/2022 Family History Medical History Relation Name Comments Migraines Daughter 1 Mental illness Daughter 2 Alcohol abuse Father Diabetes type II Father Lung cancer Father Diabetes Maternal Grandfather Breast cancer Mother Migraines Mother Other Mother Diabetes Paternal Grandmother Stroke Paternal Grandmother HTN Sister 2 Other Sister 2 Hypertension Sister 3 Lupus Sister 3 Skin cancer Son Relation Name Status Comments Daughter 1 Daughter 2 Father Alive Maternal Grandfather Mother Alive Paternal Grandmother Sister 1 Alive Sister 2 Sister 3 Son Social History Tobacco Use Types Packs/Day Years Used Date Smoking Tobacco: Former Cigarettes 1 47 1 962 - 2008 Smokeless Tobacco: Former Quit: 2008 Tobacco Cessation:Counseling Given: Not Answered Comments:Smoking History Packs/day: 1 Packs Alcohol Use Standard Drinks/Week Comments No 0 (1 standard drink = 0.6 oz pur e alcohol) OASIS D0700: Social Isolation Answer Da te Recorded Frequency of experiencing loneliness or isolatio n Sometimes 10/15/2023 OASIS A1250: Transportation Answer Date Recorded Lack of Transportation (Medical) No 10/15/2023 Lack of Transportation (Non-Medical) No 10/15/2023 Patient Unable or Declines to Respond No 10/15/2023 OASIS B1300: Health Literacy Answer Gianni e Recorded Frequency of needing help to read materials from doctor or pharmacy Sometimes 10/15/2023 [facility] Utilities Answer Date Recorded In the past 12 months has th e electric, gas, oil, or water company threatened to shut off services in your home? No 10/20/2024 Social Connection and Isolation Panel [NHANES] A nswer Date Recorded In a typical week, how many times do you talk on the phone with family, friends, or neighbors? Twice a week 10/20/2024 How often do you get togethe r with friends or relatives? Three times a week 10/20/2024 How often do you attend chur ch or mosque services? Never 10/20/2024 Do you belong to any clubs o r organizations such as rastafarian groups, unions, fraternal or athletic groups, or school groups? No 10/20/2024 How often do you attend meet ings of the clubs or organizations you belong to? Never 10/20/2024 Are you , , di vorced, , never , or living with a partner? 10/20/2024 AUDIT-C Answer Date Recorded Q1: How often do you have a drink containing alc ohol? Never 01/20/2025 Average Number of Drinks Not on file 025 Frequency of Binge Drinking Not on file 12/28 Overall Financial Resource Strain (CARDIA) Answe r Date Recorded How hard is it for you to pa y for the very basics like food, housing, medical care, and heating? Not very hard 10/20/2024 PHQ-2 Answer Date Recorded PHQ-2 Total Score (If total score is 3 or more points, staff should administer the PHQ-9) 1 10/20/2024 [facility] - Occupational Stress Questionnaire Answer Date Recorded Do you feel stress - tense, restless, nervous, or anxious, or unable to sleep at night because your mind is troubled all the time - these days? To some extent 10/20/2024 Hunger Vital Sign Answer Date Recorded Within the past 12 months, y ou worried that your food would run out before you got the money to buy more. Never true 10/20/20 24 Within the past 12 months, t he food you bought just didn't last and you didn't have money to get more. Never true 10/20/2024 PRAPARE - Transportation Answer Date Re corded In the past 12 months, has l ack of transportation kept you from medical appointments or from getting medications? No 09/27 In the past 12 months, has l ack of transportation kept you from meetings, work, or from getting things needed for daily living? No 10/20/2024 Housing Stability Vital Sign Answer Gianni e Recorded In the last 12 months, was t here a time when you were not able to pay the mortgage or rent on time? No 07/09/2023 In the last 12 months, how many places have you lived? 2 07/09/2023 In the last 12 months, was t here a time when you did not have a steady place to sleep or slept in a intermediate (including now)? No 07/09/2023 PHQ-9 Answer Date Recorded PHQ-9 Total Score 4 10/20/2024 Housing Stability Vital Sign Answer Gianni e Recorded In the last 12 months, was t here a time when you were not able to pay the mortgage or rent on time? No 10/20/2024 In the past 12 months, how m any times have you moved where you were living? 0 10/20/2024 At any time in the past 12 m [facility], were you homeless or living in a intermediate (including now)? No 10/20/2024 Personal Safety Answer Date Recorded Have you ever been in or are you currently in a harmful physical or emotional relationship or is someone making you feel afraid or unsafe? Denies 05/22/2024 Education Answer Date Recorded What is the highest level of school you have completed or the highest degree you have received? Associate degree: occupational, technical, or vocational program 02/05/2023 Comments No Sex and Gender Information Value Date Recorded Sex Assigned at Not on file Legal Sex Female 8:25 AM DIRECTOR RADIATION ONCOLOGY Gender Identity Not on file Sexual Orientation Not on file Occupation Industry Job Start Date Job End Date retired Not on file Not on file Not on file Obstetrics History Para Term AB IAB SAB Ectopic Multiple Livin g Live Births 2 2 2 Date Outcome GA Total Labor Labor/2nd/3rd Weight Sex Type Anes PTL Edda A1 A5 Name Clin Term Term Last Filed Vital Signs Vital Sign Reading Time Taken Comments Blood Pressure 114/60 01/20/2025 1:12 PM DIRECTOR RADIATION ONCOLOGY Pulse 72 01/20/2025 1:12 PM DIRECTOR RADIATION ONCOLOGY Temperature 36.6 C (97.9 F) 11/11/2024 2:01 PM DIRECTOR RADIATION ONCOLOGY Respiratory Rate 20 11/04/2024 1:21 PM DIRECTOR RADIATION ONCOLOGY Oxygen Saturation 96% 01/20/2025 1:12 PM DIRECTOR RADIATION ONCOLOGY Inhaled Oxygen Concentration - - Weight 45.4 kg (100 lb) 01/20/2025 1:12 PM DIRECTOR RADIATION ONCOLOGY Height 137.2 cm (4' 6 ) 01/20/2025 1:12 PM DIRECTOR RADIATION ONCOLOGY Body Mass Index 24.11 01/20/2025 1:12 PM DIRECTOR RADIATION ONCOLOGY Plan of Treatment Health Maintenance Due Date Last Done Comments Dilated Eye Exam 1945 Foot Exam 1944 Hepatitis B Screening 1962 Lipid Panel 07/08/2024 07/08/2023, 06/26, 10/12/2020, Additional history exists Covid-19 Vaccine (2023-12 5 season) 2025 09/30/2024, 08/27/2024, 12/13/2023, Additional history exists Hemoglobin A1C 04/08/2025 10/09/2024, 04/0 01/2024, 06/13/2022, Additional history exists Fall Risk Assessment 04/09/2025 04/09/2024, 07/10/2023, 02/26/2023, Additional history exists Well Visit 65+ 04/09/2025 04/09/2024, 04/0 01/2023, 12/21/2021, Additional history exists Osteoporosis Screening-Bone Density Scan 09/17/2025 09/17/2023, 09/17/2023, 07/01/2020 Albumin Creatinine Ratio, Urine 10/09/2025 10/09/2024, 02/27/2024, 06/13/2022, Additional history exists eGFR 10/09/2025 10/09/2024, 04/27, 02/27/2024, Additional history exists Depression Screening 10/20/2025 10/20/2024, 10/20/2024, 04/09/2024, Additional history exists DTaP/Tdap/Td Vaccine (3 - Td or Tdap) 11/11/2031 11/11/2021, 10/28/2014 Colon Cancer Screening-CT Colonography Discontinued 11/28/2016 Colon Cancer Screening-Colonoscopy Discontinued 11/28/2016 Colon Cancer Screening-DNA Stool Discontinued 11/28/19 Colon Cancer Screening-FIT Discontinued 11/28/2016 Colon Cancer Screening-FOBT Discontinued 11/28/2016 Colon Cancer Screening-Sigmoidoscopy Discontinued 11/28/2016 Colorectal Cancer Screening Discontinued Zoster Vaccine Completed 05/07/2019, 01/25, 11/26/2007, Additional history exists Pneumococcal vaccine 65+ Completed 022, 08/25/2015, 10/28/2014, Additional history exists Influenza Vaccine Completed 08/27/2024, , 09/07/2022, Additional history exists Medical Devices Implanted Type Area Hand Trimmer Device Identifier Shelf Expiration Date Model / Serial / Lot [employer] Tfn-Advanced Lateral Relief Cut 9mm 170mm Cannulated Femoral [id number] - [id number] Implanted:Qty: 1 on 04/03/2023 by Blaze Fernando MD at [facility] Left: Hip Synthes I 10/25/2029 04.037.912S / / [id number] [employer] Tfn-Advanced 10.35mm 90mm Cannulated 3.5mm Screw Bone [id number] 04.038.190s - [id number] Implanted:Qty: 1 on 04/03/2023 by Blaze Fernando MD at [facility] Left: Hip Synthes I 11/25/2031 04.038.190S / / [id number] Synthes 5mm 4.3mm 38mm Lock Self Tap Blunt Tip 2 Lead Tibial T25 Full 04.005.528s - [id number] Implanted:Qty: 1 on 04/03/2023 by Blaze Fernando MD at [facility] Left: Hip Synthes I 02/24/2032 04.005.528S / / [id number] Explanted Type Area Hand Trimmer Device Identifier Shelf Expiration Date Model / Serial / Lot [employer] Liborio Wallflex 10mm X 60mm Fully Covered Biliary [id number] - [id number] Implanted:Qty: 1 on 07/05/2022 by Yuri Akers MD at [facility] Explanted:Qty: 1 on 07/07/2022 by Yuri Akers MD at [facility] Stent N/A: Bile Duct [employer] Liborio 05/02/2024 [id number] / / [id number] [employer] Oliver Flexi-Stent 7fr 5cm Small Pigtail Flexible .035in Stent [id number] - [id number] Implanted:Qty: 1 on 07/05/2022 by Yuri Akers MD at [facility] Explanted:Qty: 1 on 07/07/2022 by Yuri Akers MD at [facility] Stent N/A: Pancreas [employer] 03/25/2027 [id number] / / [id number] Procedures Procedure Name Priority Date/Time Associated Diagnosis Comments EGFR Routine 10/09/2024 1:19 PM DIRECTOR RADIATION ONCOLOGY Type 2 diabetes mellitus with diabetic polyneuropathy, without long-term current use of insulin (HCC) HEMOGLOBIN A1C Routine 10/09/2024 1:19 PM DIRECTOR RADIATION ONCOLOGY Type 2 diabetes mellitus with diabetic polyneuropathy, without long-term current use of insulin (HCC) ALBUMIN CREATININE RATIO, URINE Routine 10/09/2024 1:19 PM DIRECTOR RADIATION ONCOLOGY Type 2 diabetes mellitus with diabetic polyneuropathy, without long-term current use of insulin (HCC) DEXA AXIAL SKELETON BONE DENSITY 1 OR MORE SITES Schedule Routine, Read Routine (OP Routine) 09/17/2023 1:43 PM CDT Menopause Idiopathic osteoporosis Vitamin D deficiency LIPID PANEL Timed 07/08/2023 12:11 AM CDT COLONOSCOPY REPORT 11/28/2016 from Last 3 Months or Most Recently Relevant to Health Maintenance Results * eGFR (10/09/2024 1:19 PM DIRECTOR RADIATION ONCOLOGY) eGFR 82 >=60 mL/min/1. 73 m2 Comment: Interpretive Data Reference Interval Normal >/= 90 mL/min/1.73m2 Mildly decreased* 60 - 89 mL/min/1.73m2 Mildly to moderately decreased 45 - 59 mL/min/1.73m2 Moderately to severely decreased 30 - 44 mL/min/1.73m2 Severely decreased 15 - 29 mL/min/1.73m2 Kidney Failure < 15 mL/min/1.73m2 *Relative to young adult level Estimated glomerular filtration rate is determined by the 2020 CKD-EPI equation recommended by the National Kidney Foundation (A Unifying Approach to GFR Estimation: Recommendations of the NKF-ASK Task Force on Reassessing the Inclusion of Race in Diagnosing Kidney Disease, JASN 2020). The CKD-EPI equation should not be used for patients with unstable renal function and has not been validated in children and those over 70. Current interpretive data was last reviewed 2021. Testing performed by: [address] [address] Blood 10/09/2024 1:19 PM DIRECTOR RADIATION ONCOLOGY 10/09/2024 6:37 PM DIRECTOR RADIATION ONCOLOGY us Nishi Michael MD LAB BLOOD ORDERABLES Final Result [facility] [id number] [facility] Department [place] [address] * Albumin Creatinine Ratio, Urine (10/09/2024 1:19 PM DIRECTOR RADIATION ONCOLOGY) Albumin Ur <12.0 mg/L Comment: Interpretive Data No reference range established. Current interpretive data was last revised 2019. Testing performed by: [address] [place] [address] Creatinine Ur 75.7 mg/dL [place] Comment: Interpretive Data No reference range established. Current interpretive data was last revised 2019. Testing performed by: [address] [address] Albumin Creatinine Ratio, Ur <16 1 - 29 mg/g [place] Comment:Testing performed by : [address] [address] Urine 10/09/2024 1:19 PM DIRECTOR RADIATION ONCOLOGY 10/09/2024 6:01 PM DIRECTOR RADIATION ONCOLOGY us Nishi Michael MD LAB URINE ORDERABLES Final Result Performing Organization Address [facility] Co de Phone Number [facility] [address] [facility] [place] [address] * (ABNORMAL) Hemoglobin A1c (10/09/2024 1:19 PM DIRECTOR RADIATION ONCOLOGY) [facility] Hgb A1C 6.7(H) 4.0 - 5.6 % Comment:Testing performed by : [address] [address] Estimated Average Glucose 146 mg/dL [place] Comment: The ADA recommends reporting an estimated Average Glucose (eAG) with all Hemoglobin A1c results using the equation derived from a study of 507 normal and diabetic adults. Minority populations were underrepresented and children were not included. (Diabetes Care 31:3362-3266, 2008). The eAG is not equivalent to a fasting glucose. Testing performed by: [address] [address] Blood 10/09/2024 1:19 PM DIRECTOR RADIATION ONCOLOGY 10/09/2024 6:01 PM DIRECTOR RADIATION ONCOLOGY us Nishi Michael MD LAB BLOOD ORDERABLES Final Result Performing Organization Address [facility] Co de Phone Number [facility] [address] [facility] [place] [address] * Dexa Axial Skeleton Bone Density 1 or 2 Site (09/17/2023 1:43 PM CDT) Anatomical Region Laterality Modality Body N/A Other 09/19/2023 7:34 AM CDT Narrative 09/19/2023 7:36 AM CDT EXAM DESCRIPTION: DEXA AXIAL SKELETON BONE DENSITY 1 OR MORE SITES REASON FOR STUDY: 78 y/o year old F with given history of: menopause Osteoporosis follow up Fractured left femur 03/2023 Taking Tymlos 1.5 years postmenopausal status with history of fracture. Patient being treated for osteoporosis. Patient takes vitamin-D. Hand Trimmer/Model: Bustle (S/N [id number]) CLINICAL INFORMATION: Current height: 54.8 inches Maximum height: 63 inches Weight: 97 pounds Risk factors: Prior fracture COMPARISON: None available . Dissimilar scan types or analysis methods precludes assessment for calculating a significant change. FINDINGS: AP LUMBAR SPINE L1-L4: Total BMD is 0.789 g/cm2 T-score is -2.3 RIGHT HIP: Total BMD is 0.625 g/cm2 T-score is -2.6 Femoral neck BMD is 0.480 g/cm2 T-score is -3.3 FRAX: FRAX not reported due to T-scores of hip, femoral neck and/or spine being at or below -2.5 (Osteoporosis). IMPRESSION: Osteoporosis. REFERENCE: Bone mineral density: Normal (T-score above or = -1.0) Low bone mass (T-score between -1.0 and -2.5) replaces the previously used term osteopenia Osteoporosis (T-score = or below -2.5) Medical evaluation for secondary causes of low bone mineral density may be appropriate. FRAX is a World Health Organization validated fracture risk assessment tool that calculates a person's 10 year probability of a major osteoporosis related fracture and hip fracture. According to the National Osteoporosis Foundation guidelines, postmenopausal women and men age 50 or older with low bone mass and a 10 year probability of a major osteoporosis related fracture = or greater than 20% or a 10 year probability of a hip fracture = or greater than 3% should be considered for treatment. For further information, including treatment recommendations, please refer to the 2019 ISCD Official Positions (http://www.iscd.org) and the NOF's Clinician's Guide to Prevention and Treatment of Osteoporosis (http://www.nof.org/professionals/clinical-guidelines) THIS IS AN ELECTRONICALLY VERIFIED FINAL REPORT 09/19/2023 7:36 AM - Electronically signed by Meg Tabor M.D. TW: TW Report ID: [id number] Reading Location: [place] [address] Procedure Note Meg Tabor MD - 09/19/2023 EXAM DESCRIPTION: DEXA AXIAL SKELETON BONE DENSITY 1 OR MORE SITES REASON FOR STUDY: 78 y/o year old F with given history of: menopause Osteoporosis follow up Fractured left femur 03/2023 Taking Tymlos 1.5years postmenopausal status with history of fracture. Patient being treatedfor osteoporosis. Patient takes vitamin-D. Hand Trimmer/Model: VMob SL (S/N [id number]) CLINICAL INFORMATION: Current height: 54.8 inches Maximum height: 63 inches Weight: 97 pounds Risk factors: Prior fracture COMPARISON: None available . Dissimilar scan types or analysis methods precludes assessment for calculating a significant change. FINDINGS: AP LUMBAR SPINE L1-L4: Total BMD is 0.789 g/cm2 T-score is -2.3 RIGHT HIP: Total BMD is 0.625 g/cm2 T-score is -2.6 Femoral neck BMD is 0.480 g/cm2 T-score is -3.3 FRAX: FRAX not reported due to T-scores of hip, femoral neck and/or spine beingat or below -2.5 (Osteoporosis). IMPRESSION: Osteoporosis. REFERENCE: Bone mineral density: Normal (T-score above or = -1.0) Low bone mass (T-score between -1.0 and -2.5) replaces thepreviously used term osteopenia Osteoporosis (T-score = or below -2.5) Medical evaluation for secondary causes of low bone mineral density may be appropriate. FRAX is a World Health Organization validated fracture risk assessmenttool that calculates a person's 10 year probability of a major osteoporosisrelated fracture and hip fracture. According to the National OsteoporosisFoundation guidelines, postmenopausal women and men age 50 or older with low bonemass and a 10 year probability of a major osteoporosis related fracture = or greater than 20% or a 10 year probability of a hip fracture = or greaterthan 3% should be considered for treatment. For further information, including treatment recommendations, please referto the 2019 ISCD Official Positions (http://www.iscd.org) and the NOF's Clinician's Guide to Prevention and Treatment of Osteoporosis (http://www.nof.org/professionals/clinical-guidelines) THIS IS AN ELECTRONICALLY VERIFIED FINAL REPORT 09/19/2023 7:36 AM - Electronically signed by Meg Tabor M.D. TW: TAWANNA Report ID: [id number] Reading Location: [place] [address] Nishi Michael MD IMG DXA PROCEDURES Final R esult * Lipid panel (07/08/2023 12:11 AM CDT) Cholesterol 146 30 - 199 mg/dL LORENA LENZ (ANGELA) Comment: Interpretive Data Ages < or = 19 years Acceptable: <170 mg/dL Borderline high: 170-199 mg/dL High: >or= 200 mg/dL Ages > or = 20 years Desirable: <200 mg/dL Borderline high: 200-239 mg/dL High: >or= 240 mg/dL Literature References: 1. Expert Panel on Integrated Guidelines for Cardiovascular Health and Risk Reduction in Children and Adolescents. Pediatrics 2011;128:S213 2. NCEP Expert Panel. Circulation 2004;110:227 Current Interpretive Data was last revised on 2018. Triglycerides 57 <=149 mg/dL LORENA LENZ (ANGELA) Comment: Interpretive Data Ages < or = 9 years Acceptable: <75 mg/dL Borderline high: 75-99 mg/dL High: >or= 100 mg/dL Ages 10 to 20 years Acceptable: <90 mg/dL Borderline high: 90-129 mg/dL High: >or= 130 mg/dL Ages > or = 20 years Desirable: <150 mg/dL Borderline high: 150-199 mg/dL High: 200-499 mg/dL Very high: >or= 499 mg/dL Literature References: 1. Expert Panel on Integrated Guidelines for Cardiovascular Health and Risk Reduction in Children and Adolescents. Pediatrics 2011;128:S213 2. NCEP Expert Panel. Circulation 2004;110:227 Current Interpretive Data was last revised on 2018. HDL 46 >=40 mg/dL LORENA Alford (ANGELA) Comment: Interpretive Data Ages < or = 19 years Acceptable: >45 mg/dL Borderline low: 40-45 mg/dL Low: <40 mg/dL Ages > or = 20 years Desirable: >or= 60 mg/dL Low: <40 mg/dL Literature References: 1. Expert Panel on Integrated Guidelines for Cardiovascular Health and Risk Reduction in Children and Adolescents. Pediatrics 2011;128:S213 2. NCEP Expert Panel. Circulation 2004;110:227 Current Interpretive Data was last revised on 2018. LDL, calculated 89 <=129 mg/dL LORENA LENZ (ANGELA) Comment: Interpretive Data Ages < or = 19 years Acceptable: <110 mg/dL Borderline high: 110-129 mg/dL High: >or= 130 mg/dL Ages > or = 20 years Optimal: <100 mg/dL Near optimal: 100-129 mg/dL Borderline high: 130-159 mg/dL High: >160 mg/dL Literature References: 1. Expert Panel on Integrated Guidelines for Cardiovascular Health and Risk Reduction in Children and Adolescents. Pediatrics 2011;128:S213 2. NCEP Expert Panel. Circulation 2004;110:227 Current Interpretive Data was last revised on 2018. Non-HDL Cholesterol 100 mg/dL LORENA LENZ (ANGELA) Comment: Interpretive Data Ages < or = 19 years Acceptable: <120 mg/dL Borderline high: 120-144 mg/dL High: >145 mg/dL Ages > or = 20 years When triglycerides are >200 mg/dL, Non-HDL cholesterol is a secondary target of therapy with treatment goals that are 30 mg/dL greater than the LDL cholesterol target. Literature References: 1. Expert Panel on Integrated Guidelines for Cardiovascular Health and Risk Reduction in Children and Adolescents. Pediatrics 2011;128:S213 2. NCEP Expert Panel. Circulation 2004;110:227 Current Interpretive Data was last revised on 2018. Chol/HDL ratio 3 HAREMET LENZ (ANGELA) Blood 07/08/2023 12:1 1 AM CDT 07/08/2023 12:13 AM CDT Narrative LORENA LENZ (ANGELA) - 07/08/2023 1:59 AM CDT This lipid panel was automatically ordered due to a significant change in Troponin. The dietary status of the patient at the collection time should be correlated with the lipid results. Anant Izaguirre MD LAB BLOOD ORDERABLES Final Res ult [facility] Department [place] [address] * COLONOSCOPY REPORT (11/28/2016) Anatomical Region Laterality Modality Other Narrative 11/28/2016 Ordered by an unspecified provider. 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 Advance Directives and Living Will 08/31/2023 11:15 AM [facility], emailed on 08/31/23 ADVANCE DIRECTIVE 02/05/2023 1:44 PM DNR ADVANCE DIRECTIVE 12/21/2021 POWER OF LEADERSHIP PROGRAM INTERN-MEDICAL ADVANCE DIRECTIVE 12/21/2021 POWER OF LEADERSHIP PROGRAM INTERN-MEDICAL ADVANCE DIRECTIVE 05/08/2016 POWER OF LEADERSHIP PROGRAM INTERN-MEDICAL ADVANCE DIRECTIVE 07/16/2015 DNR * LIMITED - No CPR (Latest Code Status on File) Date Activated Date Inactivated Comments 07/08/2023 4:52 AM 07/10/2023 9:47 PM Question Answer Comments Provide aggressive medical m anagement before a full cardiopulmonary arrest occurs. Use antibiotics, IV Fluids, and medical treatment unless specifically selected below: No intubation * Comfort Care Only - DO NOT Resuscitate Date Activated Date Inactivated Comments 07/08/2023 12:57 AM 07/08/2023 4:52 AM * LIMITED - No CPR Date Activated Date Inactivated Comments 04/02/2023 6:27 PM 04/08/2023 2:58 AM Question Answer Comments Provide aggressive medical m anagement before a full cardiopulmonary arrest occurs. Use antibiotics, IV Fluids, and medical treatment unless specifically selected below: No intubationNo non-invasive ventilationNo cardioversionNo internal / external pacemakerNo vasopressors Discussed with the following attending physician: Dr. 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 Start Date End Date Nishi Michael MD PCP - General 02/23/17 [place] [address] [facility] [address] [place] [address] Physical Medicine and Rehabilitation 09/07/17 [place] [address] [facility] [address] [place] [address] Maxillofacial Pathology 09/07/17 Maikel Mckeon MD [address] [place] [address] [place] [address] Referring Physician Ophthalmology 03/11/18 Rosie Velasquez MD [address] [place] [address] Consulting Physician Cardiology 05/25/20 Yuri Akers MD [address] [address] Consulting Physician Gastroenterology 07/07/22 Blaze Fernando MD [address] [place] [address] DR MAKAYLA Freeman [facility] [address] [place] [address] Surgeon Orthopedic Surgery 12/06/22 Deshaun Xavier MD [address] [place] [address] [address] [place] [address] Consulting Physician Pulmonary Disease 03/14/23 Dylan Gillespie MD [address] [facility] [address] [place] [address] Consulting Physician Gastroenterology 06/14/23 Yoly Ramirez MD [address] [place] [address] [address] [place] [address] Consulting Physician Gastroenterology 08/30/23 Filipe Monsalve DPM [address] [place] [address] Consulting Physician Orthotics 04/09/24
--- OUTSIDE RECORDS SUMMARY | 2025-03-10 16:39 | XMS_ITS | Referral Summary ---
Author Organization [facility] Address [address] [place] [address] Care Team Providers Care Instructor Product Inspection Name Role Phone Nishi Michael MD Primary Care Provider + [phone] Mark Tolliver MD Unavailable [phone] Ceasar Yang MD Unavailable + [phone] Maikel Mckeon MD Unavailable [phone] Rosie Velasquez MD Unavailable [phone] Yuri Akers MD Unavailable [phone] Blaze Fernando MD Unavailable [phone] Deshaun Xavier MD Unavailable Dylan Gillespie MD Unavailable [phone] Yoly Ramirez MD Unavailable Filipe Monsalve DPM Unavailable [phone] Encounters Date Type Department Care Team Description 01/20/2025 1:00 PM GROUNDS KEEPER Office Visit [facility] G[facility]enterology at [address] [place] [address] Yoly Ramirez MD Chronic GERD (Primary Dx); Chronic nausea; Poor appetite; Weight loss; Constipation due to opioid therapy; IPMN (intraductal papillary mucinous neoplasm) 01/19/2025 Telephone [facility] at [address] [place] [address] Estefanía Myers MA 12/29/2024 Telephone [facility] [address] [place] [address] Nishi Michael MD tilt test results 12/25/2024 11:45 AM GROUNDS KEEPER Office Visit [facility] [address] [place] [address] Ceasar Teran MD Chronic migraine without aura without status migrainosus, not intractable (Primary Dx); Dizziness and giddiness; Double vision from Last 3 Months Allergies Active Allergy Reactions Criticality Noted Date [...] Active metroNIDAZOLE (FLAGYL) 500 mg tablet 01/25/20 24 Active nitroglycerin (NITROSTAT) 0.4 mg SL tablet [...] 2 (two) times a day 60 capsule 11 05/08/20 24 Active fluticasone-ume clidin-vilanter (Trelegy Ellipta) 100-62.5-25 mcg inhaler Inhale 1 puff daily 30 each 05/08/20 24 Active albuterol HFA (PROVENTIL HFA,VENTOLIN HFA,PROAIR HFA) 90 mcg/actuation inhaler Inhale 2 puffs every 6 (six) hours as needed for wheezing or shortness of breath 1 each 11 05/08/20 24 Active LORazepam (ATIVAN) 0.5 mg [...] 01/26/2025 Assessment & Plan (01/26/2025 8:20 PM GROUNDS KEEPER): Lost about 45 lbs in the past [...] 01/08/2024 Assessment & Plan (01/26/2025 8:18 PM GROUNDS KEEPER): Well controlled with Amitiza 8mg BID with senna as needed, will continue current therapy Assessment & Plan (07/13/2024 10:44 PM CDT): Well controlled with Amitiza 8mg BID, will continue current therapy Assessment & Plan (01/08/2024 6:19 PM GROUNDS KEEPER): Well controlled with Amitiza 8mg BID, will continue current therapy IPMN (intraductal papillary mucinous neoplasm) 0 01/08/2024 Assessment & Plan (01/26/2025 8:18 PM GROUNDS KEEPER): EUS 08/2022 showed dilated pancreatic duct cystic [...] morbidities Assessment & Plan (01/08/2024 6:35 PM GROUNDS KEEPER): EUS 08/2022 showed dilated pancreatic duct cystic [...] 09/20/2023 Assessment & Plan (01/31/2024 2:02 PM GROUNDS KEEPER): No recnet HbA1c in chart, most recent [...] (08/01/2023 1:17 PM CDT): See hospitalization at [facility] from 06/2023. Was rxd Imdur 30mg upon [...] last 4 months, has also had new OH in that time. Tried to start pentoxifylline but it made her shaky and SOB (was in ER with OH the next day). Sees Dr. Velasquez on [...] with Dr. Eva TOMAS. Assessment & Plan (07/12/2023 2:38 PM CDT): [...] use. 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 Assessment & Plan (01/31/2022 10:28 AM GROUNDS KEEPER): Continue home 3 L O2. Chronic GERD 09/02/2017 Assessment & Plan (01/26/2025 8:22 PM GROUNDS KEEPER): Associated with chronic intermittent nausea, currently in [...] modifications Assessment & Plan (01/08/2024 6:17 PM GROUNDS KEEPER): takes Dexilant 60 mg daily with good [...] RHONA BREEN NP See hospitalization for recent OH at [facility] 06/2023. Sees Dr. Velasquez on regular basis, [...] to schedule missed follow with Dr. Eva MORANP. Assessment & Plan (10/03/2023 8:48 PM GROUNDS KEEPER): Stable on current regimen after starting jardiance. [...] -2.7 Took 4 weeks of Fosamax in 2017 and has not taken since Qualifies for [...] daily. Assessment & Plan (01/31/2022 10:30 AM GROUNDS KEEPER): Can continue home abaloparatide when her daughter [...] 04/09/2024 Assessment & Plan (10/03/2023 8:49 PM GROUNDS KEEPER): Urgency for 1 week, no dysuria or [...] She notes that she has called an catheterization laboratory technician. Presence of artificial hip joint, left [...] 07/09/2023 07/12/2023 Shortness of breath 07/09/2023 07/12/20 Other chest pain 07/08/2023 07/12/2023 Assessment & [...] and ADLs. Acute right hip pain 06/28/2023 023 Assessment & Plan (06/28/2023 3:27 PM CDT): [...] to reasons of recurrent falls. Continue to curriculum counselor patient on limiting excessive opioid usage. [...] 1st line p.r.n. oxycodone (additional 1st line [place] p.r.n. added by ortho), second-line p.r.n. Dilaudid [...] to reasons of recurrent falls. Continue to curriculum counselor patient on limiting excessive opioid usage. [...] 1st line p.r.n. oxycodone (additional 1st line [place] p.r.n. added by ortho), second-line p.r.n. Dilaudid [...] to reasons of recurrent falls. Continue to curriculum counselor patient on limiting excessive opioid usage. [...] to reasons of recurrent falls. Continue to curriculum counselor patient on limiting excessive opioid usage. [...] concerned about her legs, testing done at [facility] reviewed. Was referred to vascular upon discharge, [...] next visit in 2 months. Primary hypertension 03/16/20232 023 Assessment & Plan (07/12/2023 2:29 PM [...] 02/26/2023 Assessment & Plan (01/03/2023 2:19 PM GROUNDS KEEPER): Chronic problem, recently exacerbated times about 1 [...] bleeding Assessment & Plan (01/08/2024 6:31 PM GROUNDS KEEPER): Chronic anemia dating back to at least [...] 07/13/2022 (8 days[facility] also developed sudden onset of left lower extremity weakness. The patient was found to have acute right CRISTINO infarct with a small microhemorrhage. Neurology was consulted. PT, OT was consulted. Patient is now going to a group home facility for further rehab therapy. Assessment & [...] protein-calorie malnutrition 07/07/2022 02/26/2023 Centrilobular emphysema 07/06/2022 08/2 Pancreas cyst 06/23/2022 07/15/2022 Assessment & Plan (06/23/2022 12:01 PM CDT): Noted recently on MRI imaging. Will repeat the MRI to follow on the size. This this is of new onset the of size increase referral to further evaluation at [facility] it will be recommended. Vitamin D deficiency 06/21/2022 024 Overview (06/21/2022): Vitamin-D level extremely low at 07 June 2022, started on vitamin-D protocol Assessment & Plan (01/03/2023 2:20 PM GROUNDS KEEPER): Chronic problem, most recent vitamin D level [...] 07/15/2022 Assessment & Plan (01/31/2022 10:34 AM GROUNDS KEEPER): UA on admission showed 11-20 WBCs and 1+ leuk esterase, but no bacteria were seen in the patient denies dysuria. Monitor for urinary symptoms, no indication for antibiotics at this time. Cat scratch 01/30/2022 07/15/2022 Assessment & Plan (01/30/2022 2:49 PM GROUNDS KEEPER): Patient has multiple cat scratches and bites [...] 04/09/2024 Assessment & Plan (01/31/2024 3:18 PM GROUNDS KEEPER): Lesion to R dorsal hand as noted above, no further signs of acute infection, surrounding redness is likely from skin healing not infection. Rxd Bacitracin as instructed. Cleanse twice daily with soap and water, dry well then apply bacitracin and dry bandage. Educated on signs of worsening infection-call with any of these. Assessment & Plan (11/16/2021 2:38 PM GROUNDS KEEPER): Patient returns for follow up on cat [...] concern. Assessment & Plan (11/11/2021 4:52 PM GROUNDS KEEPER): Patient has erythema and warmth, with mild [...] 12/21/2021 Assessment & Plan (11/11/2021 4:29 PM GROUNDS KEEPER): Patient reports episode earlier this week with [...] 03/16/20202021 Assessment & Plan (11/16/2021 2:40 PM GROUNDS KEEPER): Patient has chronic back pain and takes [...] June [address] K[facility]IS[facility] at [facility] resolved IMPRESSION: 1. The previously described questionable/suspicious [...] 05/07/201711/06 Overview (05/07/2017): Condition treated by her building mover Assessment & Plan (06/23/2022 12:00 PM CDT): [...] 05/07/20172024 Assessment & Plan (01/31/2024 3:16 PM GROUNDS KEEPER): C/o worsening neuropathy to both legs, no [...] for pain control. Additional 1st line p.r.n. Monk[place] added by Orthopedics on 04/03. Continued patient's [...] for pain control. Additional 1st line p.r.n. Monk[place] added by Orthopedics on 04/03. Continued patient's [...] constipation. Assessment & Plan (01/31/2022 10:28 AM GROUNDS KEEPER): Home Xtampza replaced with OxyContin while inpatient. [...] ice/tylenol for pain -Notify ortho of fall Immunizations Immunization Administration Dates Next Due Influenza, [...] 11/11/2021,10/28/2014 [facility]OSTER LIVE 11/26/2007,10/23/2007,09/26/2007 [facility]ER Recombinant 05/07/2019,02/21/2019 Social History Tobacco Use Types Packs/Day Years [...] materials from doctor or pharmacy Sometimes 10/15/2023 C Utilities Answer Date Recorded In the past 12 months has th e [employer], gas, oil, or water Imperator threatened to shut off services in your [...] often do you attend chur ch or adventist services? Never 10/20/2024 Do you belong to any clubs o r organizations such as congregational groups, unions, fraternal or athletic groups, or [...] staff should administer the PHQ-9) 1 10/20/2024 [facility] - Occupational Stress [...] place to sleep or slept in a fdc (including now)? No 07/09/2023 PHQ-9 Answer Date [...] any time in the past [facility], were you homeless or living in a fdc (including now)? No 10/20/2024 Personal Safety Answer [...] on file Legal Sex Female 8:25 AM GROUNDS KEEPER Gender Identity Not on file Sexual Orientation Not on file Occupation Industry Job Start Date Job End Date retired Not on file Not on file Not on file Last Filed Vital Signs Vital Sign Reading Time Taken Comments Blood Pressure 114/60 01/20/2025 1:12 PM GROUNDS KEEPER Pulse 72 01/20/2025 1:12 PM GROUNDS KEEPER Temperature 36.6 C (97.9 F) 11/11/2024 2:01 PM GROUNDS KEEPER Respiratory Rate 20 11/04/2024 1:21 PM GROUNDS KEEPER Oxygen Saturation 96% 01/20/2025 1:12 PM GROUNDS KEEPER Inhaled Oxygen Concentration - - Weight 45.4 kg (100 lb) 01/20/2025 1:12 PM GROUNDS KEEPER Height 137.2 cm (4' 6 ) 01/20/2025 1:12 PM GROUNDS KEEPER Body Mass Index 24.11 01/20/2025 1:12 PM GROUNDS KEEPER Plan of Treatment Not on file Medical Devices Implanted Type Area Fur Vault Attendant Device Identifier Shelf Expiration Date Model / Serial / Lot Synthes Tfn-Advanced Lateral Relief Cut 9mm 170mm Cannulated Femoral 04.037.912s - [id number] Implanted:Qty: 1 on 04/03/2023 by Blaze Fernando MD at [facility] Left: Hip Synthes I 10/25/2029 04.037.912S / / [id number] Synthes Tfn-Advanced 10.35mm 90mm Cannulated 3.5mm Screw Bone [id number] 04.038.190s - [id number] Implanted:Qty: 1 on 04/03/2023 by Blaze Fernando MD at [facility] Left: Hip Synthes I 11/25/2031 04.038.190S / / [id number] Synthes 5mm 4.3mm 38mm Lock Self Tap Blunt Tip 2 Lead Tibial T25 Full 04.005.528s - [id number] Implanted:Qty: 1 on 04/03/2023 by Blaze Fernando MD at [facility] Left: Hip Synthes I 02/24/2032 04.005.528S / / [id number] Explanted Type Area Fur Vault Attendant Device Identifier Shelf Expiration Date Model / Serial / Lot [employer] [place] [employer] Wallflex 10mm X 60mm Fully Covered Biliary [id number] - [id number] Implanted:Qty: 1 on 07/05/2022 by Yuri Akers MD at [facility] Explanted:Qty: 1 on 07/07/2022 by Yuri Akers MD at [facility] Stent N/A: Bile Duct [employer] [place] 05/02/2024 [id number] / / [id number] [employer] Oliver Flexi-Stent 7fr 5cm Small Pigtail Flexible .035in Stent [id number] - [id number] Implanted:Qty: 1 on 07/05/2022 by Yuri Akers MD at [facility] Explanted:Qty: 1 on 07/07/2022 by Yuri Akers MD at [facility] Stent N/A: Pancreas [employer] 03/25/2027 [id number] / / [id number] Procedures Procedure Name Priority Date/Time Associated Diagnosis Comments EGFR Routine 10/09/2024 1:19 PM GROUNDS KEEPER Type 2 diabetes mellitus with diabetic polyneuropathy, without long-term current use of insulin (HCC) HEMOGLOBIN A1C Routine 10/09/2024 1:19 PM GROUNDS KEEPER Type 2 diabetes mellitus with diabetic polyneuropathy, without long-term current use of insulin (HCC) ALBUMIN CREATININE RATIO, URINE Routine 10/09/2024 1:19 PM GROUNDS KEEPER Type 2 diabetes mellitus with diabetic polyneuropathy, [...] Maintenance Results * eGFR (10/09/2024 1:19 PM GROUNDS KEEPER) eGFR 82 >=60 mL/min/1. 73 m2 Comment: [...] was last reviewed 2021. Testing performed by: [address] [address] Blood 10/09/2024 1:19 PM GROUNDS KEEPER 10/09/2024 6:37 PM GROUNDS KEEPER us Nishi Michael MD LAB BLOOD ORDERABLES Final Result Performing Organization Address [facility] Co de Phone Number [facility] [employer] [place] [address] * Albumin Creatinine Ratio, Urine (10/09/2024 1:19 PM GROUNDS KEEPER) Albumin Ur <12.0 mg/L Comment: Interpretive Data No reference range established. Current interpretive data was last revised 2019. Testing performed by: [address] [address] Creatinine Ur 75.7 mg/dL [facility] Comment: Interpretive Data No reference range established. Current interpretive data was last revised 2019. Testing performed by: [address] [address] Albumin Creatinine Ratio, Ur <16 1 - 29 mg/g [facility] Comment:Testing performed by : [address] [address] Urine 10/09/2024 1:19 PM GROUNDS KEEPER 10/09/2024 6:01 PM GROUNDS KEEPER us Nishi Michael MD LAB URINE ORDERABLES Final Result Performing Organization Address [facility]/ZIP Co de Phone Number [facility] [place] [address] * (ABNORMAL) Hemoglobin A1c (10/09/2024 1:19 PM GROUNDS KEEPER) Hgb A1C 6.7(H) 4.0 - 5.6 % Comment:Testing performed by : [address] [address] Estimated Average Glucose 146 mg/dL [facility] PENG Comment: The ADA recommends reporting an estimated Average Glucose (eAG) with all Hemoglobin A1c results using the equation derived from a study of 507 normal and diabetic adults. Minority populations were underrepresented and children were not included. (Diabetes Care 31:3039-1001, 2008). The eAG is not equivalent to a fasting glucose. Testing performed by: [address] [address] Blood 10/09/2024 1:19 PM GROUNDS KEEPER 10/09/2024 6:01 PM GROUNDS KEEPER Nishi Michael MD LAB BLOOD ORDERABLES Final Result [facility]NA PENG [id number] [facility] Department of Laboratories [place] [phone] * Dexa Axial Skeleton Bone Density 1 [...] being treated for osteoporosis. Patient takes vitamin-D. Fur Vault Attendant/Model: [employer] (S/N [id number]) CLINICAL INFORMATION: Current height: 54.8 inches Maximum [...] Meg Tabor M.D. TW: TW Report ID: [id number] Reading Location: [id number] Procedure Note Meg Tabor MD - 09/19/2023 EXAM DESCRIPTION: DEXA AXIAL SKELETON BONE DENSITY 1 OR MORE SITES REASON FOR STUDY: 78 y/o year old F with given history of: menopause Osteoporosis follow up Fractured left femur 03/2023 Taking Tymlos 1.5years postmenopausal status with history of fracture. Patient being treatedfor osteoporosis. Patient takes vitamin-D. Fur Vault Attendant/Model: [employer] SL (S/N [id number]) CLINICAL INFORMATION: Current height: 54.8 inches Maximum [...] Meg Tabor M.D. TW: TW Report ID: [id number] Reading Location: [place] [address] us Nishi Michael MD IMG DXA PROCEDURES Final R esult * Lipid panel (07/08/2023 12:11 AM CDT) Pathologist [facility] Cholesterol 146 30 - 199 mg/dL LORENA [...] last revised on 2018. Chol/HDL ratio 3 HARMEET LENZ (ANGELA) Blood 07/08/2023 12:1 1 AM CDT 07/08/2023 12:13 AM CDT Narrative LORENA DELFIN (ANGELA) - 07/08/2023 1:59 AM CDT This lipid panel was automatically ordered due to a significant change in Troponin. The dietary status of the patient at the collection time should be correlated with the lipid results. Anant Izaguirre MD LAB BLOOD ORDERABLES Final Res ult LORENA LENZ (ANGELA) 1 [facility] [place] [address] * COLONOSCOPY REPORT (11/28/2016) Anatomical Region Laterality Modality Other Narrative 11/28/2016 Ordered by an unspecified provider. Historical Provider GI PROCEDURE ORDERABLES F inal Result from Last 3 Months or Most Recently Relevant to Health Maintenance Insurance [employer] MEDICARE [id number] (Work) [address] [place], [place] MEDICARE MEDICARE [facility] MEDICARE MEDICARE [facility] Advance Directives For more information, please contact: [phone] Documents on File Type Date Recorded Patient Award Machine Operator Expl anation Advance Directives and Living Will 08/31/2023 11:15 AM POA-Health care, emailed on 08/31/23 ADVANCE DIRECTIVE 02/05/2023 1:44 PM DNR ADVANCE DIRECTIVE 12/21/2021 POWER OF DOCUMENTATION IMPROVEMENT SPECIALIST-MEDICAL ADVANCE DIRECTIVE 12/21/2021 POWER OF DOCUMENTATION IMPROVEMENT SPECIALIST-MEDICAL ADVANCE DIRECTIVE 05/08/2016 POWER OF DOCUMENTATION IMPROVEMENT SPECIALIST-MEDICAL ADVANCE DIRECTIVE 07/16/2015 DNR * LIMITED - [...] 7:14 PM 03/18/2023 9:04 PM Care Teams Instructor Product Inspection Relationship Specialty Start Date End Date Nishi Michael MD PCP - General 02/23/17 [place] [address] [address] Physical Medicine and Rehabilitation 09/07/17 [place] [address] [facility] [address] [place] [address] Fashion Supervisor 09/07/17 Maikel Mckeon MD [address] [place] [address] [place] [address] Referring Physician Ophthalmology 03/11/18 Rosie Velasquez MD [address] [place] [address] Consulting Physician Cardiology 05/25/20 Yuri Akers MD [address] [facility] [address] [place] [address] Consulting Physician Gastroenterology 07/07/22 Blaze Fernando MD [address] [place] [address] [address] [place] [address] Surgeon Orthopedic Surgery 12/06/22 Deshaun Xavier MD [address] [place] [address] [address] [place] [address] Consulting Physician Pulmonary Disease 03/14/23 Dylan Gillespie MD [address] [facility] [address] [place] [address] Consulting Physician Gastroenterology 06/14/23 Yoly Ramirez MD [address] [place] [address] [address] [place] [address] Consulting Physician Gastroenterology 08/30/23 Filipe Monsalve DPM [address] [place] [address] Consulting Physician Orthotics 04/09/24
--- OUTSIDE RECORDS SUMMARY | 2025-03-10 16:39 | XMS_ITS ---
Author Organization [facility] Address [address] [place] [address] Care Team Providers Care Beauty Counselor Name Role Phone Alec COREY, Nishi Primary Care Provider Juancarlos MORALES ROLL MECHANIC, CHACHA Unavailable JORGE A COREY, SAMANTA Unavailable REASON FOR VISIT MRI/MRCP [facility] 4.11 Encounters Encounter Location Date Provider Diagnosis [facility] [address] [place] [address] 02/08/2024 SAMANTAAtilio JULES PLAN OF TREATMENT No Information Progress Notes * Shannon NINO ADOB:[birth year] (78 yo F)Acc No.[id number]:02/08/2024 Patient: ELENADUTCH Shannon Guzman :1945 Age:78 Y Sex:Female Address:[address], [facility] [place], [address] * true * Date:
--- OUTSIDE RECORDS SUMMARY | 2025-03-10 16:39 | XMS_ITS | Encounter Summary ---
Author Organization [facility] Address [address] [place] [address] Phone Care Team Providers Care Grinder Set Up Operator Universal Name Role Phone Nishi Michael MD Primary Care Provider [phone] Encounter Details Date Type Department Care Team (Late st Contact Info) Description 04/27/2023 Nursing Facility [facility] [address] [place] [address] Jack Ramsay, PAC [address] [place], [place] [address] Social History Tobacco Use Types Packs/Day Years Used Date Smoking Tobacco: Never Assessed Comments Unknown Sex and Gender Information Value Date Recorded Sex Assigned at Not on file Legal Sex Female 7:30 PM CDT Gender Identity Not on file Sexual Orientation Not on file documented as of this encounter Progress Notes * Jack Ramsay, ARNIE - 04/27/2023 8:20 AM CDT [facility] PROGRESS NOTE Shannon Sanchez is a 77 y.o. female at [facility] for rehabilitation. He was a resident here from 09/13/2022 through 10/06/2022 where she received longterm and physical therapy after being hospitalized at [facility] for generalized weakness and falls. Her workup in the hospitalization was largely unremarkable other than mild traumatic rhabdomyolysis She was rehospitalized at [facility] from 04/02/2023 through 04/07/2023 after suffering a left femoral neck fracture that required surgical repair. Subjective: Interval History: Patient is lying comfortably in bed. Says that she feels ???good?? . No acute symptoms or concerns. Saw her hollow core door frame assembler yesterday for routine follow-up, no new orders provided and is to return in 1 year. Therapy says she is improving. Past medical history: Chronic diastolic congestive heart [...] hemoglobin 10.5, platelet count 392. BMP with [id number] otherwise within normal limits. 09/27/2022: CMP completely [...] M.D. Assessment/Plan: Generalized weakness and deconditioning Receiving longterm care and physical therapy rehabilitation 04/27/2023 GERD 04/19: Uncontrolled. Home Dexilant restarted per [...] Fernando Receiving nursing and physical therapy 04/19: Nekoma recently removed. Weight-bearing as tolerated. Chronic pain syndrome Followed by pain management Dr. Jones Is on a very aggressive pain regimen but this will be continued while here 10/02/22 - Patient is interested in Getting off of these narcotic pain medications which I congratulated her on. We have provided information on [facility] which is a local opioid abuse rehabilitation program. Patient is looking into this and also looking into [facility] [place]. 04/09/2023: Patient returns to facility on the [...] pancreatic duct Is followed by GI at [facility] Diabetes mellitus type 2 Diet-controlled Other chronic medical conditions include previous CVA, chronic abdominal pain, Continue home regimen Stable VTE Prophylaxis: Patient Low Risk I discussed advanced care planning with this patient. Disposition: 04/09: Patient tells me she is considering assisted living facility at discharge This note was dictated using Trivie fluency dictation system and there may be errors in tangled yarn spool straightener. Despite proof reading the note, there may be mistakes and I apologize for those. By: ARNIE Washburn, 04/27/2023 8:20 AM CDT documented in this encounter Plan of Treatment Not on file documented as of this encounter Visit Diagnoses Not on filedocumented in this encounter Care Teams Grinder Set Up Operator Universal Relationship Specialty Start Date End Date Nishi Michael MD [address] [facility] [place] [address] PCP - General Internal Medicine 08/02/16 documented as of this encounter
--- OUTSIDE RECORDS SUMMARY | 2025-03-10 16:39 | XMS_ITS | Encounter Summary ---
Author Organization [facility] Address [address] [place] [address] Phone Care Team Providers Care Gas Appliance Mechanic Name Role Phone Nishi Michael MD Primary Care Provider [phone] Encounter Details Date Type Department Care Team (Late st Contact Info) Description 04/13/2023 Nursing Facility [facility] [address] [place] [address] Nishant Alex MD [address] [place] [address] Social History Tobacco Use Types Packs/Day Years Used Date Smoking Tobacco: Never Assessed Comments Unknown Sex and Gender Information Value Date Recorded Sex Assigned at Not on file Legal Sex Female 7:30 PM CDT Gender Identity Not on file Sexual Orientation Not on file documented as of this encounter H&P Notes * Nishant Alex MD - 04/13/2023 11:59 PM CDT [facility] Shelter History and Physical Chief Complaint: Fall, left femoral neck fracture s/p surgical repair HPI: Shannon Sanchez is a 77 y.o. female who has transferred to [facility] for post-acute care and rehabilitation. Patient was previously a resident here from 09/13/2022 through 10/06/2022where she received jail care and therapy after being hospitalized at [facility] for generalized weakness and falls. Her workup in the hospitalization was largely unremarkable other than mild traumatic rhabdomyolysis. The patient was rehospitalized at [facility] from 04/02/2023 through 04/07/2023 after falling and suffering a left femoral neck fracture that required surgical repair. At the time of this assessment, the patient complained of chronic back and leg pain and reported that she has only been having bowel movements every other day. History obtained from: patient, medical records Review of Prior External Notes: [facility] records Allergies: She is allergic to nsaids (non-steroidal anti-inflammatory drug); penicillin v; penicillins; pregabalin; ciprofloxacin; sulfa (sulfonamide antibiotics); tetracycline; tuberculin; horse epithelium allergenic extract; ibuprofen; immune globulin,horse (equine); nortriptyline hcl; penicillinv potassium; sulfamethoxazole; sulfanilamide; tetanus immune globulin; amitriptyline; gabapentin; nortriptyline; sulfasalazine; tetanus toxoid; and tetanus vaccines and toxoid. Past Medical History: She has a past medical history of Abnormal alkaline phosphatase test, Arthritis, Chronic obstructive pulmonary disease ([facility]), Chronic thoracic spine pain (01/13/2022), CKD (chronic kidney disease), Colonic polyp, Dental caries, Depression, Diabetes mellitus ([facility]), Dysplasia ofcervix, Esophageal dysmotility, Fibromyalgia, Gastroesophageal reflux disease, 5, not currently , H/O tubal ligation, Headache, migraine, Iron deficiency anemia (10/06/2018), Low backpain, Mid back pain, Moderate malnutrition ([facility]) (07/07/2022), Osteopenia, Osteoporosis, Peripheral vascular disease ([facility]), Peripheral vascular disease, unspecified ([facility]) (09/13/2022), Presence of pancreatic duct stent (07/15/2022), Shortness of breath, Stroke ([facility]), Tachycardia, Tobacco use, and Unspecified fracture of unspecified forearm, initial encounter for closed fracture (06/27/2015). Surgical History: She has a past surgical history that includes Appendectomy (1990); Cholecystectomy (1995); Augmentation Mammoplasty (1989); Other surgical history; Colonoscopy w/ biopsies and polypectomy (11/28/2016); Colonoscopy (2004); Breast implant removal; Knee surgery; ERCP w/ sphicterotomy; Tubal ligation (1989); Gynecologic cryosurgery (1983); and Transduodenal sphincterotomy / sphincteroplasty (07/06/2022). Social History: She reports that she has quit smoking. Her smoking use included cigarettes. She quit smokeless tobacco use about 14 years ago. She reports current drug use. Drugs: Oxycodone and Medical marijuana. Patient denies consuming alcoholic drinks. Physical Exam: Vital Signs: All vitals were reviewed in the facility EMR and are stable. Exam: General: Well developed, well nourished, in no distress Skin: Normal appearance, normal turgor, no rashes HEENT: Normocephalic, atraumatic, no flaring, edentulous, left periorbital hematoma Eyes: nonicteric, intact extra occular movement, PERRL, s/p bilateral cataract extractions Neck: normal, supple, no lymphadenopathy Heart: regular rate and rhythm, S1, S2 normal, no murmur, click, rub or gallop Lungs: clear to ausculation, normal respirations, normal precautions, supplemental O2 3L NC Abdominal: soft, non-tender; bowel sounds normal; no masses, no organomegaly : external genitalia normal in appearance Extremities: no deformities, joint mobility appears intact, no clubbing, arthritic changes, 1+ pitting edema LLE, weak distal pulse Musculoskeletal: scoliosis Neuro: Non-focal, CN intact, sensory and motor intact Psychological: alert and oriented X3, appropriate mood and affect, Intact judgement and memory Data Review: Lab Results: 04/09/2023: BMP with glucose 115, sodium 134, chloride 95, calcium 8.1 otherwise within normal limits. CBC with hemoglobin 10.0 otherwise unremarkable. Imaging: No new imaging. Orders: - Start Movantik 25 mg qd for constipation - Start Lyrica 50 mg b.i.d for neuropathic bilateral lower extremity pain Assessment/Plan: 1. Left femoral neck fracture s/p ORIF on 04/03. Patient will need to follow-up with ortho Dr. Fernando. Complete PT/OT at the SNF. Continue pain management. 2. Frequent falls, generalized weakness and decreased mobilization. Patient reports suffering frequent falls since CVA in 2021. The patient is to receive PT and OT at the SNF to improve strength, balance, and mobility back to baseline. 3. Chronic pain syndrome. Followed by pain management Dr. Jones. Patient is on aggressive pain regimen and previously expressed interest in weaning off narcotic pain medications but returned to the facility on the same regimen. Percocet has been reduced from 2 tabs to 1 tab PRN Q6h. The rest of herregimen will be continued as is while at the SNF. 4. Chronic diastolic CHF. No signs of acute exacerbation. During recent hospitalization it was feltthat she was over diuresed and Lasix dose was decreased from 40 mg to 20 mg daily. Continue PO Lasix, metoprolol, and spironolactone. 5. Osteoporosis. The patient has brought her home Tymlos which will be continued. 6. 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 Continue baseline supplemental O2 3 lpm via nasal cannula. Continue PRN inhaler for wheezing. Stable. 7. Diabetes Mellitus Type 2. Well-controlled without long-term insulin use. Continue management with diabetic diet. Not taking any medications. Check A1c periodically as outpatient. 8. Stricture pancreatic duct. Followed by GI at [facility]. 9. Vitamin D Deficiency. Continue supplementation. 10. Anemia. Hgb stable at 10.0 on 04/09. Monitor CBC periodically and advise transfusion if Hgb drops below 7.0. Continue ferrous sulfate and cyanocobalamin supplementation. 11. Depression and Anxiety. The patient's mood currently appears stable and no reported psychological distress at this time. Continue management with Ativan and SSRI therapy with Cymbalta. 12. GERD. No acute symptoms. Continue PPI therapy. 13. Hx of CVA. No lasting neurological deficits but has been suffering recurrent falls since that time. Continue Plavix. 14. Constipation. Likely secondary to narcotic pain killer usage. We will start Movantik 25 mg qd. 15. Chronic leg pain. Seems to be neuropathic and patient already has aggressive pain regimen so I will start her on Lyrica 50 mg BID. VTE Prophylaxis: Mobilization. Low-risk. Disposition and escalation or reduction of care: The patient is to receive post- acute care and complete PT and OT at the SNF to improve strength, balance, and mobility back to baseline with the goal of discharging to home where she lives independently. Patient may benefit from placement in a supportive care facility considering her frequent falls, hospital admissions, and extensive rehabilitationcourses. She is considering going to an assisted living facility upon her discharge. Advance Care Planning: Aggregate [id number]-ly-[id number] time, greater than 16 minutes was spent discussing end-of-life care planning with patient/family and/or Power of Railway Head Tender. Discussed CPR, Intubation, treatment goals, and Quality of life/Intensity of care. Patient desires No CPR-Full treatment I, Betito Vallejo, acting as a scribe, am personally taking down the notes in the presence of Dr. Nishant Alex M.D. Take no action on this note until reviewed and authenticated by the physician. By: BETITO VALLEJO, 04/13/2023 Primary Care Physician: Nishi Michael MD . I evaluated and examined the patient and discussed the physical findings and clinical assessment with scribe Betito Vallejo and reviewed the medical records and notes above and agree with the content anddetails of the note. Nishant Alex M.D. 04/13/2023 documented in this encounter Plan of Treatment Not on file documented as of this encounter Visit Diagnoses Not on filedocumented in this encounter Care Teams Gas Appliance Mechanic Relationship Specialty Start Date End Date Nishi Michael MD [address] [facility] [place] [address] PCP - General Internal Medicine 08/02/16 documented as of this encounter
--- OUTSIDE RECORDS SUMMARY | 2025-03-10 16:40 | XMS_ITS | Encounter Summary ---
Author Organization [facility] Address [address] [place] [address] Phone Care Team Providers Care Retail Sales Vitamin Consultant Name Role Phone Nishi Michael MD Primary Care Provider [phone] Encounter Details Date Type Department Care Team (Late st Contact Info) Description 06/01/2023 Nursing Facility [facility] [address] [place] [address] Jack Ramsay PAC [address] [place], [place] [id number] Social History Tobacco Use Types Packs/Day Years Used Date Smoking Tobacco: Never Assessed Comments Unknown Sex and Gender Information Value Date Recorded Sex Assigned at Not on file Legal Sex Female 7:30 PM CDT Gender Identity Not on file Sexual Orientation Not on file documented as of this encounter Progress Notes * Jack Ramsay PAC - 06/01/2023 3:45 PM CDT [facility]AY DISCHARGE SUMMARY Name: Shannon Sanchez Age: 77 y.o. : 1945 Attending Physician: No att. providers found Admission Date/Time: 04/07/2023 Expected Discharge Date: 06/03/2023 Primary Care Physician: Nishi Michael MD Discharging Provider: ARNIE Washburn INSTRUCTIONS FOR PHYSICIANS ON FOLLOW UP AFTER DISCHARGE: Follow-up with PCP in 1-2 weeks Discharge Instructions: Discharge Condition: improved Disposition: Home Diet: Cardiac Diet Activity: activity as tolerated Discharge Diagnoses: Left femoral neck fracture, generalized weakness and deconditioning, chronic pain syndrome, chronic diastolic congestive heart failure, GERD, osteoporosis, COPD with chronic respiratory failure, previous CVA CVA, chronic abdominal pain Admitting Diagnoses: Left femoral neck fracture, generalized weakness and deconditioning, chronic pain syndrome, chronic diastolic congestive heart failure, GERD, osteoporosis, COPD with chronic respiratory failure, previous CVA CVA, chronic abdominal pain SKILLED CARE COURSE: Shannon Sanchez was admitted to long term facility for acute care rehabilitation. Prior to coming to rehabilitation facility patient was hospitalized at [facility] from04/02/2023 through 04/07/2023 after suffering a left femoral neck fracture that required surgical repair. While at the rehabilitation facility, the patient received long term care and physical therapy rehabilitation. The patient has done well with their rehabilitation and has regained enough strength and ambulationthat it is felt that she can safely be discharged. Her stay in the facility was largely uncomplicated. She was followed by Ortho and her fracture has been healing nicely. She actually completing her skilled therapy a month ago. At that time she was hesitant to go home and was more tested in going to assisted living facilities. She was screened by local assisted livingfacilities but she is not accepted due to the aggressive opioid regimen that she has been on for several years now. So she decided to stay in the facility for long-term care and to continue to recover. In regards to her aggressive pain regimen, her p.r.n. Percocet dosing was decreased shortly after she arrived to the facility. Last month when her Xtampza was due to be refilled, had a long conversation with her and again explained that this medication is not necessary and is detrimental to her health. I explained to her that if she was going to stay in this facility and I was going to handle herpain medications, that this Xtampza was going to be gradually reduced in manner that she would be completely off of it in roughly 5 months. I wrote out this taper on a piece of paper for her. She has handled the decreased dose of the Xtampza well. She tells me that she plans on continuing to do the taper at home and I hope that she does and I encouraged her to do so. Earlier this week she informed the staff that she would like to go home this weekend. Today she is sitting up comfortably on the edge of her bed. She looks well clinically. She says shefeels ???good?? . She has no acute symptoms or concerns. She will be discharging over the weekend to her home. She does live by herself. She is independent with all her ADLs and she is cognitively intact so I feel this is reasonable. Exam Day of Discharge: Vital Signs: Recent vital signs in the [...] hemoglobin 10.5, platelet count 392. BMP with [id number] otherwise within normal limits. 09/27/2022: CMP completely [...] signed by ??Bryan Mederos M.D. DISCHARGE PLAN: Patient will be discharging to home on 06/03/2023. Understands to continue all current medications as directed and follow up with PCP in 1-2 weeks. I have spent time coordinating care for this long term facility discharge: Greater than 30 minutes spent in coordinating care This note was dictated using Gridsum fluency dictation system and there may be errors in cytopathologist. Despite proof reading the note, there may be mistakes and I apologize for those. Signed: ARNIE Washburn, 06/01/2023, 3:45 PM CDT documented in this encounter Plan of Treatment Not on file documented as of this encounter Visit Diagnoses Not on filedocumented in this encounter Care Teams Retail Sales Vitamin Consultant Relationship Specialty Start Date End Date Nishi Michael MD [address] [facility] [place] [id number] PCP - General Internal Medicine 08/02/16 documented as of this encounter
--- OUTSIDE RECORDS SUMMARY | 2025-03-10 16:40 | XMS_ITS | Clinical Summary ---
Author Organization [facility] Address [address] [place] [address] Phone Care Team Providers Care Polysomnographic Technologist Name Role Phone Nishi Michael MD Primary Care Provider [phone] Medications oxyCODONE-Acet aminophen (Percocet) 10-325 MG TabletIndicati ons:Pain Take 1 Tablet by mouth every 6 hours as needed for Moderate or more severe pain or Severe pain. Indications: Pain 120 Tablet 04/17/20 Active carisoprodol (Soma) 350 MG TabletIndicati ons:Musculoske letal Pain Take 1 Tablet by mouth 3 times daily. 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 Social History Tobacco Use Types Packs/Day Years Used Date Smoking Tobacco: Never Assessed Comments Unknown Sex and Gender Information Value Date Recorded Sex Assigned at Not on file Legal Sex Female 7:30 PM CDT Gender Identity Not on file Sexual Orientation Not on file Plan of Treatment Health Maintenance Due Date Last Done Comments DEXA Bone Density 1945 Hepatitis C Virus (HCV) Screening 1945 Respiratory Syncytial Virus (RSV) Immunization (Adult) (1 - 1-dose 75+ series) 2019 Influenza Immunization (#1) 07/27/202408/26, 09/07/2022, 09/07/2022, Additional history exists SARS-COV-2 Immunization (2023- season) 2024 02/16/2021, 01/19/2021 Zoster Immunization Completed 05/07/2019, 02/21/2019, 11/26/2007, Additional history exists DTaP/Tdap/Td Immunization Discontinued 11/11/2021, 01/2014 TdaP Immunization Completed 11/11/2021, 10/28/2014 Pneumococcal Immunization (50+ years) Completed 09/18/2022, 08/25/2015, 10/28/2014, Additional history exists Pneumococcal Immunization Combined Discontinued 09/18/2022, 08/25/2015, 10/28/2014, Additional history exists Hepatitis B Immunization Aged Out No longer eligible based on patient's age to complete this topic Meningococcal Immunization (ACWY) Aged Out No longer eligible based on patient's age to complete this topic Rotavirus Immunization Aged Out No lo nger eligible based on patient's age to complete this topic Insurance MEDICARE MEDICAID [place] Care Teams Polysomnographic Technologist Relationship Specialty Start Date End Date Nishi Michael MD [address] [facility] [place] [address] PCP - General Internal Medicine 08/02/16
--- OUTSIDE RECORDS SUMMARY | 2025-03-10 16:40 | XMS_ITS | Encounter Summary ---
Author Organization [facility] Address [address] [place] [address] Phone Care Team Providers Care Copy Center Specialist Name Role Phone Nishi Michael MD Primary Care Provider Encounter Details Date Type Department Care Team (Late st Contact Info) Description 09/26/2022 Nursing Facility [facility] [address] [place] [address] Jack Ramsay, PAC [address] [place], [place] [id number] Social History Tobacco Use Types Packs/Day Years Used Date Smoking Tobacco: Never Assessed Comments Unknown Sex and Gender Information Value Date Recorded Sex Assigned at Not on file Legal Sex Female 7:30 PM CDT Gender Identity Not on file Sexual Orientation Not on file documented as of this encounter Progress Notes * Jack Ramsay, ARNIE - 09/26/2022 12:03 PM CDT [facility] PROGRESS NOTE Shannon Sanchez is a 77 y.o. female at [facility] for rehabilitation. Prior to coming to nursing facility patient was hospitalized at [facility] from 09/08 through 09/13 for generalized weakness with falls. Was found to have traumatic rhabdomyolysis, cardiac and neuro workup was completed due to concern for syncope and was unremarkable. Subjective: Interval History: Patient is concerned about the lower extremity edema that developed at the end last week. This was pointed out to Dr. Alex who started her on 20 mg of Lasix q.d. and she has had 3 doses of this sofar. She denies any shortness of breath. No previous history of similar symptoms. Denies any other symptoms. Feels like therapy is going well. Past medical history: Chronic diastolic congestive heart failure Chronic pain syndrome Diabetes mellitus type 2 Previous CVA GERD Chronic abdominal pain COPD Chronic respiratory failure Osteoporosis Stricture pancreatic duct Social history: Retired History of cigarette abuse Review of Systems: A 14 point comprehensive review of systems was negative except what is documented in interval history above. Objective: Exam: Vital Signs: B/P: 132/76 Pulse: 70 Respirations: 18 Temperature: 97.1 General: Well developed, well nourished, in no [...] in both lower extremities up to mid bright Neuro: Non-focal, CN intact, sensory and motor intact Psychological: alert and oriented X3, appropriate mood and affect, Intact judgement and memory Lab Results: On 09/13 in the hospital, CBC with WBC of 3.7, hemoglobin 10.5, platelet count 392. BMP with [id number] otherwise within normal limits. Imaging: None Assessment/Plan: Bilateral lower extremity edema 11/ - trace to 1+ pitting edema bilaterally. Started at the end of last week and was started on low-dose low Lasix at that point which she says is not helping. This is highly likely related to the IV fluids she received during her hospitalization for treatment of her acute kidney injury and rhabdomyolysis. Will continue the Lasix. Check lab work tomorrow. Stressed the importance of elevation andlow-salt diet. Generalized weakness and deconditioning Receiving [facility] care and physical therapy rehabilitation 09/18 - improving Chronic pain syndrome Followed by pain management Dr. Jones Is on a very aggressive pain regimen but this will be continued while here Osteoporosis She has brought in her home tymlos and this will be continued COPD with chronic respiratory failure Wears supplemental oxygen at baseline Continue inhalers Stable, well controlled Stricture pancreatic duct Is followed by GI Gets ERCPs occasionally, last 1 was on July 05 Says that she was found to have a pancreatic mass and has had a biopsy done this recently Diabetes mellitus type 2 Diet-controlled Chronic diastolic congestive heart failure Continue metoprolol Not on any diuretics No signs of acute Well controlled Other chronic medical conditions include previous CVA, GERD, chronic abdominal pain, Continue home regimen Stable VTE Prophylaxis: Patient Low Risk I discussed advanced care planning with this patient. This note was dictated using Track fluency dictation system and there may be errors in master [place]. Despite proof reading the note, there may be mistakes and I apologize for those. By: Jack Ramsay, PAC, 09/26/2022 12:04 PM CDT documented in this encounter Plan of Treatment Not on file documented as of this encounter Visit Diagnoses Not on filedocumented in this encounter Care Teams Copy Center Specialist Relationship Specialty Start Date End Date Nishi Michael MD [address] [facility] [place] [address] PCP - General Internal Medicine 08/02/16 documented as of this encounter
--- OUTSIDE RECORDS SUMMARY | 2025-03-10 16:40 | XMS_ITS | Encounter Summary ---
Author Organization [facility] Address [address] [place] [address] Phone Care Team Providers Care Recycling Assistant Name Role Phone Nishi Michael MD Primary Care Provider Encounter Details Date Type Department Care Team (Late st Contact Info) Description 09/15/2022 Nursing Facility [facility] [address] [place] [address] Nishant Alex MD [address] [place] [address] Social History Tobacco Use Types Packs/Day Years Used Date Smoking Tobacco: Never Assessed Comments Unknown Sex and Gender Information Value Date Recorded Sex Assigned at Not on file Legal Sex Female 7:30 PM CDT Gender Identity Not on file Sexual Orientation Not on file documented as of this encounter Progress Notes * Nishant Alex MD - 09/15/2022 9:26 AM CDT [facility] PROGRESS NOTE Shannon Sanchez is a 77 y.o. female at [facility] for rehabilitation. Subjective: Interval History: The patient is overall improving. Been participating in therapy. She still complains of some chronic low back pain but particularly is anxious about increased swelling of her bilateral lower extremities. Review of Systems: A 14 point comprehensive review of systems was negative except what is documented in interval history above. Objective: Exam: Vital Signs: Vital signs in the facility EMR were reviewed and were within the normal range. General: Well developed, well nourished, in no distress Skin: Normal appearance, normal turgor, no rashes, the skin turgor has overall improved HEENT: Normocephalic, atraumatic, no flaring Eyes: nonicteric, intact extra occular movement, PERRL Neck: normal, supple, no lymphadenopathy Heart: regular rate and rhythm, S1, S2 normal, no murmur, click, rub or gallop Lungs: clear to ausculation, normal respirations, normal precautions Abdominal: soft, non-tender; bowel sounds normal; no masses, no organomegaly : external genitalia normal in appearance Extremities: no deformities, joint mobility appears intact, no clubbing, kyphoscoliosis Neuro: Non-focal, CN intact, sensory and motor intact Psychological: alert and oriented X3, appropriate mood and affect, Intact judgement and memory Assessment/Plan: 1. Frequent falls. The patient has been participating in physical therapy and occupational therapy and is improving progressively. 2. Traumatic rhabdomyolysis. The patient is encouraged to have more oral intake. She denies any muscle pain. 3. Chronic pain syndrome. Continue oral pain medications. 4. 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 The patient applies 3 Lidoderm 5% patches on a regular day weekly basis which will be continued. On this higher amount of Lidoderm patches than the recommended dose for the past 3-5 years and has not developed any complications. 5. Osteoporosis. Continue calcium and vitamin-D supplements. 6. 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 Overall control and at this more time denies any specific symptoms. 7. Diabetes mellitus type 2. Well controlled. Continue basal bolus insulin therapy. 8. Acute on Chronic diastolic heart failure. The patient has a known history of chronic diastolic heart failure but has developed increased swelling of the lower extremities. I will start her on a course of Lasix and see the evolution. We may eventually have to start her on a maintenance dose of spironolactone at baseline. 9. History of CVA. No significant neurological deficits. Continue anti-platelet therapy. 10. Underlying GERD. Continue PPI therapy. Disposition. Continue care in the correction facility. Plan to discharge when she is back to her baseline functional status and does not have any further falls. By: Nishant Alex MD, 09/22/2022 3:16 PM CDT documented in this encounter H&P Notes * Betito Vallejo - 09/15/2022 9:26 AM CDT [facility] History and Physical Chief Complaint: frequent falls, generalized weakness, traumatic rhabdomyolysis HPI: Shannon Sanchez is a 77 y.o. female who is transferred to [facility] from [facility] for post acute care rehabilitation. The patient was admitted to the hospital for frequent falls and generalized weakness and was found to have traumatic rhabdomyolysis. Her neuro and cardiac workups were both clear. At the time of this assessment, the patient was pleasant and did not have any complaints. Allergies: Nsaids (Non-Steroidal Anti-Inflammatory Drug), Penicillin V, Penicillins, Pregabalin, Ciprofloxacin, Sulfa (Sulfonamide Antibiotics), Tetracycline, Horse Epithelium Allergenic Extract, Ibuprofen, Immune Globulin,Horse (Equine), Nortriptyline Hcl, Penicillin V Potassium, Sulfamethoxazole,Sulfanilamide, Tetanus Immune Globulin, Amitriptyline, Gabapentin, Nortriptyline, Horse Serum, Sulfasalazine, [place], Tetanus Toxoid, Tetanus Vaccines And Toxoid Past Medical History: She has a PMHx of chronic diastolic CHF, DM Type 2, CVA, GERD, chronic pain, COPD, osteoporosis, stricture pancreatic duct Surgical History: appendectomy, augmentation mammoplasty, breast implant removal, cholecystectomy, colonoscopy, polypectomy, ERCP with sphicterotomy, gynecologic cryosurgery, right knee surgery, transduodenal sphincterotomy/sphincteroplasty, tubal ligation Social History: Retired. . Former smoker 1 ppd for 38 years. Quit in 2008. Family History: Family hx of HTN. Review of Systems: All systems reviewed and are negative except what is mentioned in HPI. Physical Exam: Vital Signs: All vitals were reviewed in the facility EMR and are stable. Exam: General: Well developed, well nourished, in no distress Skin: Normal appearance, poor turgor, no rashes HEENT: Normocephalic, atraumatic, no flaring Eyes: nonicteric, intact extra occular movement, PERRL Neck: normal, supple, no lymphadenopathy Heart: regular rate and rhythm, S1, S2 normal, no murmur, click, rub or gallop Lungs: Some crackles in lung base, normal respirations, normal precautions, supplemental O2 nasal cannula Abdominal: soft, non-tender; bowel sounds normal; no masses, no organomegaly : external genitalia normal in appearance Extremities: no deformities, joint mobility appears intact, no clubbing Neuro: Non-focal, CN intact, sensory and motor intact Psychological: alert and oriented X3, appropriate mood and affect, Intact judgement and memory Assessment/Plan: 1. Frequent falls and generalized weakness. She is to receive PT and OT at the SNF to improve her strength, balance, and mobility. The patient is a high fall risk and will be closely monitored while at the SNF. 2. Traumatic rhabdomyolysis. Increase hydration. 3. Chronic pain syndrome. Continue supportive care and pain management with oxycodone-acetaminophen. The patient will continue to follow-up with Dr. Jones as outpatient. 4. Osteoporosis. Mild according to most recent imaging. Continue home Tymlos. 5. COPD with chronic respiratory failure. No acute respiratory distress. The patient is on supplemental O2 via nasal cannula at baseline. Continue inhalers PRN for wheezing. 6. Stricture pancreatic duct. The patient occasionally gets ERCPs with her last one being on 07/05/22. She recently had a biopsy done for a newly discovered pancreatic mass which was noncancerous. She will continue to follow up with GI as outpatient. 7. DM Type 2. Continue management with SSI Humalog and a diabetic diet. Check blood glucose and [id number]. 8. Chronic diastolic CHF. No acute exacerbation. Not currently on any direuetic medication. Continue metoprolol. 9. Hx of CVA. No lasting neurological deficits. Continue Plavix. 10. GERD. No acute symptoms. Continue PPI therapy with pantoprazole. VTE Prophylaxis: Patient is on oral anticoagulation with Plavix Advance Care Planning: Aggregate [id number] time, greater than 16 minutes was spent discussing end-of-life care planning with patient/family and/or Power of Convention Manager. Discussed CPR, Intubation, treatment goals, and Quality of life/Intensity of care. Patient desires No CPR-Selective Treatment Betito Barker, acting as a scribe, am personally taking down the notes in the presence of Dr. Behfar Dianati, M.D. Take no action on this note until reviewed and authenticated by the physician. By: BETITO VALLEJO, 09/15/2022, 9:26 AM CDT Primary Care Physician: Nishi Michael MD . Cosigned by Nishant Alex MD at 09/22/2022 3:15 PM CDT Associated attestation - Nishant Alex MD - 09/22/2022 3:15 PM CDT I evaluated and examined the patient in the presence of scribe Betito Vallejo and discussed the physical findings and clinical assessment with her and reviewed the medical records and notes above and agree with the content and details of the note. documented in this encounter Plan of Treatment Not on file documented as of this encounter Visit Diagnoses Not on filedocumented in this encounter Care Teams Recycling Assistant Relationship Specialty Start Date End Date Nishi Michael MD [address] [facility] [place] [address] PCP - General Internal Medicine 08/02/16 documented as of this encounter
--- OUTSIDE RECORDS SUMMARY | 2025-03-10 16:40 | XMS_ITS | Encounter Summary ---
Author Organization [facility] Address [address] [place] [address] Phone Care Team Providers Care Lens Grinding Machine Operator Name Role Phone Nishi Michael MD Primary Care Provider [phone] Reason for Visit * Reason Onset Date Comments Medication Refill 05/17/2023 Encounter Details Date Type Department Care Team (Late st Contact Info) Description 05/17/2023 Refill [facility] [address] [place] [address] Jack Ramsay, PAC [address] [place], [place] [id number] Medication Refill Social History Tobacco Use Types [...] Primary documented in this encounter Care Teams Lens Grinding Machine Operator Relationship Specialty Start Date End Date Nishi Michael MD [address] [facility] [place] [id number] PCP - General Internal Medicine 08/02/16 documented as of this encounter
--- OUTSIDE RECORDS SUMMARY | 2025-03-10 16:40 | XMS_ITS | Encounter Summary ---
Author Organization [facility] Address [address] [place] [address] Phone Care Team Providers Care Android Programmer Name Role Phone Nishi Michael MD Primary Care Provider Encounter Details Date Type Department Care Team (Late st Contact Info) Description 09/29/2022 Nursing Facility [facility] [address] [address] Jack Ramsay, PAC [address] [place], [place] [id number] Social History Tobacco Use Types Packs/Day Years Used Date Smoking Tobacco: Never Assessed Comments Unknown Sex and Gender Information Value Date Recorded Sex Assigned at Not on file Legal Sex Female 7:30 PM CDT Gender Identity Not on file Sexual Orientation Not on file documented as of this encounter Progress Notes * Jack Ramsay, ARNIE - 09/29/2022 12:59 PM CDT [facility] PROGRESS NOTE Shannon Sanchez is a 77 y.o. female at [facility] for rehabilitation. Prior to coming to nursing facility patient was hospitalized at [facility] from 09/08 through 09/13 for generalized weakness with falls. Was found to have traumatic rhabdomyolysis, cardiac and neuro workup was completed due to concern for syncope and was unremarkable. Subjective: Interval History: Patient complaining of worsening bilateral lower extremity edema. Doppler done earlier this week [facility] negative for DVT. No shortness of breath or any other symptoms or concerns. Therapy says she is doing well and is planning on discharge from skilled therapy at the end of nextweek. Past medical history: Chronic diastolic congestive heart failure Chronic pain syndrome Diabetes mellitus type 2 Previous CVA GERD Chronic abdominal pain COPD Chronic respiratory failure Osteoporosis Stricture pancreatic duct Social history: Retired History of cigarette abuse Review of Systems: A 14 point comprehensive review of systems was negative except what is documented in interval history above. Objective: Exam: Vital Signs: B/P: 132/76 Pulse: 78 Respirations: 20 Temperature: 97.8 General: Well developed, well nourished, in no [...] hemoglobin 10.5, platelet count 392. BMP with [id number] otherwise within normal limits. 09/27/2022: CMP completely [...] Electronically signed by ??Bryan Mederos M.D. Assessment/Plan: Chronic diastolic congestive heart failure Continue metoprolol 09/29 - has appeared to develop a acute exacerbation of her diastolic congestive heart failure this week. This is likely a downstream effect from the IV fluids she received during the hospitalization.She had been on 20 mg of Lasix since earlier this week, edema worsening as of yesterday so has beenincreased to 40 mg of Lasix indefinitely. Consider decreasing dose once edema has resolved. Will add on a potassium supplement. Generalized weakness and deconditioning Receiving nursing home care and physical therapy rehabilitation 09/18 - [...] this recently Diabetes mellitus type 2 Diet-controlled Other chronic medical conditions include previous CVA, GERD, chronic abdominal pain, Continue home regimen Stable VTE Prophylaxis: Patient Low Risk I discussed advanced care planning with this patient. Disposition: planning on discharge on 10/06, patient not for sure she will be going home or to maybe assisted living facility. This note was dictated using M*Modal fluency dictation system and there may be errors in critical care nurse. Despite proof reading the note, there may be mistakes and I apologize for those. By: ARNIE Washburn, 09/29/2022 1:00 PM CDT documented in this encounter Plan of Treatment Not on file documented as of this encounter Visit Diagnoses Not on filedocumented in this encounter Care Teams Android Programmer Relationship Specialty Start Date End Date Nishi Michael MD [address] [facility] [place] [address] PCP - General Internal Medicine 08/02/16 documented as of this encounter
--- OUTSIDE RECORDS SUMMARY | 2025-03-10 16:40 | XMS_ITS | Encounter Summary ---
Author Organization [facility] Address [address] [place] [address] Phone Care Team Providers Care Manager Cardiovascular Name Role Phone Nishi Michael MD Primary Care Provider [phone] Encounter Details Date Type Department Care Team (Late st Contact Info) Description 10/02/2022 Nursing Facility [facility] [address] [place] [address] Jack Ramsay, PAC [address] [place], [place] [id number] Social History Tobacco Use Types Packs/Day Years Used Date Smoking Tobacco: Never Assessed Comments Unknown Sex and Gender Information Value Date Recorded Sex Assigned at Not on file Legal Sex Female 7:30 PM CDT Gender Identity Not on file Sexual Orientation Not on file documented as of this encounter Progress Notes * Jack Ramsay, PAC - 10/02/2022 3:51 PM CST [facility] PROGRESS NOTE Shannon Sanchez is a 77 y.o. female at [facility] for rehabilitation. Prior to coming to nursing facility patient was hospitalized at [facility] from 09/08 through 09/13 for generalized weakness with falls. Was found to have traumatic rhabdomyolysis, cardiac and neuro workup was completed due to concern for syncope and was unremarkable. Subjective: Interval History: Patient reports that bilateral lower extremity edema is improving. Suffered a fall out of bed, Denies any injuries from this. Is interested in getting off of her narcotic pain medicines. She has been taking high-dose narcotics for over 20 years now. therapy says she is doing well. Past medical history: Chronic diastolic congestive heart failure Chronic pain syndrome Diabetes mellitus type 2 Previous CVA GERD Chronic abdominal pain COPD Chronic respiratory failure Osteoporosis Stricture pancreatic duct Social history: Retired History of cigarette abuse Review of Systems: A 14 point comprehensive review of systems was negative except what is documented in interval history above. Objective: Exam: Vital Signs: B/P: 122/77 Pulse: 70 Respirations: 18 Temperature: 97.1 General: [...] - Trace pitting edema both lower extremities Neuro: Non-focal, CN intact, sensory and motor [...] resolved. Will add on a potassium supplement. 10/02 - Bilateral lower extremity edema is improving. Will continue on current regimen for now, anticipate deescalation prior to discharge later this week. Generalized weakness and deconditioning Receiving retirement care and physical therapy rehabilitation 09/18 - improving Chronic pain syndrome Followed by pain management Dr. Jones Is on a very aggressive pain regimen but this will be continued while here 10/02 - Patient is interested in Getting off of these narcotic pain medications which I congratulated her on. We have provided information on [facility] which is a local opioid abuse rehabilitation program. Patient is looking into this and also looking into [facility] [place]. Osteoporosis She has brought in her home [...] system and there may be errors in cider maker. Despite proof reading the note, there may be mistakes and I apologize for those. By: ARNIE Washburn, 10/02/2022 3:52 PM ONLINE TUTOR NE TUTOR documented in this encounter Plan of Treatment Not on file documented as of this encounter Visit Diagnoses Not on filedocumented in this encounter Care Teams Manager Cardiovascular Relationship Specialty Start Date End Date Nishi Michael MD [address] [facility] [place] [address] PCP - General Internal Medicine 08/02/16 documented as of this encounter
--- OUTSIDE RECORDS SUMMARY | 2025-03-10 16:40 | XMS_ITS | Encounter Summary ---
Author Organization [facility] Address [address] [place] [address] Phone Care Team Providers Care Manager Review Name Role Phone Nishi Michael MD Primary Care Provider Encounter Details Date Type Department Care Team (Late st Contact Info) Description 09/14/[address] [facility] [address] [place] [address] Jack Ramsay, PAC [address] [place], [place] [address] Social History Tobacco Use Types Packs/Day Years Used Date Smoking Tobacco: Never Assessed Comments Unknown Sex and Gender Information Value Date Recorded Sex Assigned at Not on file Legal Sex Female 7:30 PM CDT Gender Identity Not on file Sexual Orientation Not on file documented as of this encounter Progress Notes * Jack Ramsay, ARNIE - 09/14/2022 3:15 PM CDT [facility] PROGRESS NOTE Shannon Sanchez is a 77 y.o. female at [facility] for rehabilitation. Prior to coming to nursing facility patient was hospitalized at [facility] from 09/08 through 09/13 for generalized weakness with falls. Was found to have traumatic rhabdomyolysis, cardiac and neuro workup was completed due to concern for syncope and was unremarkable. Subjective: Interval History: Patient says that she is ???sore?? . She is upset that some of her pain medicines were not at the facility waiting on her when she arrived and there has been a delay overnight getting them. She is caleb very aggressive pain medicine regimen. She says that she has been followed by pain management andtaking similar medicines for over 20 years now. Past medical history: Chronic diastolic congestive heart failure Chronic pain syndrome Diabetes mellitus type 2 Previous CVA GERD Chronic abdominal pain COPD Chronic respiratory failure Osteoporosis Stricture pancreatic duct Social history: Retired History of cigarette abuse Review of Systems: A 14 point comprehensive review of systems was negative except what is documented in interval history above. Objective: Exam: Vital Signs: B/P: 124/66 Pulse: 74 Respirations: 18 Temperature: 98.3 General: Well developed, well nourished, in no [...] hemoglobin 10.5, platelet count 392. BMP with [id number] otherwise within normal limits. Imaging: None Assessment/Plan: Generalized weakness and deconditioning Receiving [facility] care and physical therapy rehabilitation Chronic pain [...] discussed advanced care planning with this patient. Advance Care Planning: Aggregate cgjs-js-attm time, greater than 16 minutes was spent discussing end-of-life care planning with patient/family and/or Power of Inspector Elevators. Discussed CPR, Intubation, treatment goals, and Quality of life/Intensity of care. Patient desires No CPR-Selective Treatment This note was dictated using M*Modal fluency dictation system and there may be errors in parts technician. Despite proof reading the note, there may be mistakes and I apologize for those. By: ARNIE Washburn, 09/14/2022 3:16 PM CDT documented in this encounter Plan of Treatment Not on file documented as of this encounter Visit Diagnoses Not on filedocumented in this encounter Care Teams Manager Review Relationship Specialty Start Date End Date Nishi Michael MD [address] [facility] [place] [address] PCP - General Internal Medicine 08/02/16 documented as of this encounter
--- OUTSIDE RECORDS SUMMARY | 2025-03-10 16:40 | XMS_ITS | Encounter Summary ---
Author Organization [facility] Address [address] [place] [address] Phone Care Team Providers Care Sportspersons Name Role Phone Nishi Michael MD Primary Care Provider Encounter Details Date Type Department Care Team (Late st Contact Info) Description 09/18/2022 Nursing Facility [facility] [address] [place] [address] Jack Ramsay, PAC [address] [place], [place] [address] Social History Tobacco Use Types Packs/Day Years Used Date Smoking Tobacco: Never Assessed Comments Unknown Sex and Gender Information Value Date Recorded Sex Assigned at Not on file Legal Sex Female 7:30 PM CDT Gender Identity Not on file Sexual Orientation Not on file documented as of this encounter Progress Notes * Jack Ramsay, ARNIE - 09/18/2022 1:31 PM CDT [facility] PROGRESS NOTE Shannon Sanchez is a 77 y.o. female at [facility] for rehabilitation. Prior to coming to nursing facility patient was hospitalized at [facility] from 09/08 through 09/13 for generalized weakness with falls. Was found to have traumatic rhabdomyolysis, cardiac and neuro workup was completed due to concern for syncope and was unremarkable. Subjective: Interval History: Patient denies any acute symptoms or concerns. Feels like therapy is going well. Has a good appetite. Nursing staff has no concerns about the patient. Past medical history: [...] history above. Objective: Exam: Vital Signs: B/P: 131/72 Pulse: 76 Respirations: 20 Temperature: 97.5 General: Well developed, well nourished, [...] hemoglobin 10.5, platelet count 392. BMP with [id number] otherwise within normal limits. Imaging: None Assessment/Plan: Generalized weakness and deconditioning Receiving assisted care and physical therapy rehabilitation 09/18 - [...] this patient. This note was dictated using M*Modal fluency dictation system and there may be errors in web press operator. Despite proof reading the note, there may be mistakes and I apologize for those. By: ARNIE Washburn, 09/18/2022 1:31 PM CDT documented in this encounter Plan of Treatment Not on file documented as of this encounter Visit Diagnoses Not on filedocumented in this encounter Care Teams Sportspersons Relationship Specialty Start Date End Date Nishi Michael MD [address] [facility] [place] [address] PCP - General Internal Medicine 08/02/16 documented as of this encounter
--- OUTSIDE RECORDS SUMMARY | 2025-03-10 16:41 | XMS_ITS ---
Author Organization [facility] Care Team Providers Care Field Clinical Engineer Name Role Phone Tha Costa Unavailable Unavailab le Allergies and adverse reactions Code CodeSystem Substance Reaction Severity StartDate Concern Status Tuberculin Tests Moderate Unknown active 3543825 RXNORM Tetanus Immune Globulin Unknown 06/26/[address] Sulfa Antibiotics Unknown 06/26/2015 active 7984 RXNORM Penicillin Unknown 06/26/2015 active Pamelor Unknown 06/26/[address] NSAIDs Unknown 06/26/2015 active Neurontin Unknown 06/26/2015 active Lyrica Unknown 06/26/2015 active Care Team Name Role Address Phone Organization Dates Tha Costa PCP [address] [place] [address], [address], [place] (Office[place] : : [facility] 06/26/2015 - 07/16/2015 Mental Status Section Date Assessment Total Score Description 07/16/2015 BIMS 15 cognitively int act PHQ-9 03 minimal depress ion 07/10/2015 BIMS 15 cognitively int act PHQ-9 07 mild depression Problems Problem # Description Date of onset Resolved Date Code CodeSystem Concern Status 1 DIFFICULTY IN WALKING, NOT ELSEWHERE CLASSIFIED 07/09/[address] active 2 HISTORY OF FALLING 07/09/[address] active 3 CHRONIC OBSTRUCTIVE PULMONARY DISEASE, UNSPECIFIED 06/27/[address] active 4 PAIN IN UNSPECIFIED JOINT 06/27/[address] active 5 UNSPECIFIED FRACTURE OF UNSPECIFIED FOREARM, INITIAL ENCOUNTER FOR CLOSED FRACTURE 06/27/[address] active 6 UNSPECIFIED FRACTURE OF UPPER END OF UNSPECIFIED HUMERUS, INITIAL ENCOUNTER FOR CLOSED FRACTURE 06/27/[address] active 7 ENCOUNTER FOR OTHER ORTHOPEDIC AFTERCARE 06/26/[address] active 8 ENCOUNTER FOR OTHER SPECIFIED AFTERCARE 06/26/[address] active 9 ESSENTIAL (PRIMARY) HYPERTENSION 06/26/[address] active 10 FRACTURE OF UNSPECIFIED METATARSAL BONE(S), UNSPECIFIED FOOT, INITIAL ENCOUNTER FOR CLOSED FRACTURE 06/26/[address] active 11 GASTRO-ESOPHAGEAL REFLUX DISEASE WITHOUT ESOPHAGITIS 06/26/[address] active 12 INSOMNIA, UNSPECIFIED 06/26/[address] active 13 MUSCLE WEAKNESS (GENERALIZED) 06/26/[address] active 14 OTHER CHRONIC PAIN 06/26/[address] active 15 UNSPECIFIED FRACTURE OF UNSPECIFIED FOOT, INITIAL ENCOUNTER FOR CLOSED FRACTURE 06/26/[address] active Reason for Referral No Reasons for Referral Entered Social History Social History Observation Description Start Date End Date Code Code System Current Smoking Status Tobacco smoking consumption unknown 207796486 SNOMED CT Sex Assigned At Female 1945 49[address]-6 [facility] Vital Signs Code Code System Vitals Name Values and Units Timing Information 34172-3 [facility] O2 % BldC Oximetry Value=92.0 Units= % 07/16/2015 19212-0 [facility] Pain Level Value=5.0 07/16/2015 9279-1 [facility] Respiratory Rate Value=20.0 Units=/m in 07/15/2015 8462-4 [facility] Blood Pressure-Diastolic Value=62 Un its=mmHg 07/15/2015 8480-6 [facility] Blood Pressure-Systolic Chryj=306 Un its=mmHg 07/15/2015 8310-5 [facility] Body Temperature Value=98.0 Units= F 07/15/2015 8867-4 [facility] Heart rate Value=80.0 Units=/min 54307-5 [facility] Weight Sokrx=635.0 Units=Lbs 8302-2 [facility] Height Value=4.0 Units=Inches 06/27/2015
--- OUTSIDE RECORDS SUMMARY | 2025-03-10 16:41 | XMS_ITS ---
Author Organization [facility] Care Team Providers Care Purse Seining Hand Name Role Phone Nishant Alex Unavailable Unavailable DevorahReina Unavailable Unavailable Jack Ramsay Unavailable Unavailable Allergies and adverse reactions Code CodeSystem Substance Reaction Severity StartDate Concern Status tubercullin Unknown 04/07/2023 active 12426 RXNORM Tetracycline Skin reaction - finding (code- 560740434, SNOMED CT) Unknown 09/13/2022 active Tetanus Toxoids Unknown 09/13/2022 activ e 1137242 RXNORM Tetanus Immune Globulin Unknown 09/13/2022 active 9524 RXNORM sulfaSALAzine [place] on syndrome (code- 13751278, SNOMED CT) Unknown 09/13/2022 active 62425 RXNORM Sulfanilamide Unknown 09/13/2022 active 02052 RXNORM Sulfamethoxazole Unknown 09/13/[address]i [address] 065212235 SNOMED [address] Sulfa Antibiotics Skin react ion - finding (code- 131273105, SNOMED CT) Unknown 09/13/2022 active 216128 RXNORM Pregabalin Lung finding (code- 392929404, SNOMED CT) Unknown 09/13/2022 active 7984 RXNORM Penicillin Anaphylaxis (code- 24275029, SNOMED CT) Unknown 09/13/[address] NSAIDs Anaphylaxis (code- 52491230, SNOMED CT) Unknown 09/13/2022 active 7531 RXNORM Nortriptyline Unknown 09/13/2022 active 5666 RXNORM Immune Globulin Unknown 09/13/2022 activ e 5640 RXNORM Ibuprofen Unknown 09/13/2022 active Horse-derived Products Unknown 09/13/2022 active 31223 RXNORM Gabapentin Unknown 09/13/2022 active 2551 RXNORM Ciprofloxacin Skin reaction - finding (code- 813634614, SNOMED CT) Unknown 09/13/2022 active Amitriptyline Unknown 09/13/2022 active Care Team Name Role Address Phone Organization Dates Nishant Alex PCP [address] [place], [address], [place]Office[place] : : [facility] 04/08/2023 - 06/03/2023 Reina Fairchild Attending Physician [address] [place], [address], [place] (Office[place] : [facility] 04/08/2023 - 06/03/2023 Jack Ramsay Attending Physician [address], [address], [place] (Office): [facility] 04/08/2023 - 06/03/2023 Immunizations Immunization Status Vaccine Details Vaccine Code CodeSystem Date Notes TB 2 Step Mantoux Skin Test cancelled tuberculin skin test; unspecified formulation 98 CVX created date: 09/15/2022 consent date: 09/15/2022 Pneumovax (PCV 13)(68897) completed pneumococcal conjugate vaccine, 13 valent lotNumber: [id number] expiry: 11/25/2023 Mfg: [employer]arket. Given 0.5 ml Left Deltoid intramuscularly 133 CVX created date: 09/15/2022 consent date: 09/15/2022 administere d date: 09/18/2022 Afluria (Influenza vaccine) Q2035 completed Influenza, split virus, quadrivalent, injectable, preservative free 150 CVX created date: 09/20/2022 administere d date: 09/07/2022 SARS-COV-2 Bivalent Booster- [facility] new SARS-COV-2 (COVID-19) vaccine, mRNA, spike protein, [...] CodeSystem Concern Status 1 DEPRESSION, UNSPECIFIED 05/11/[address] active 2 ACUTE ON CHRONIC DIASTOLIC (CONGESTIVE) HEART FAILURE 04/09/[address] active 3 CHRONIC OBSTRUCTIVE PULMONARY DISEASE, UNSPECIFIED 04/09/[address] active 4 VITAMIN D DEFICIENCY, UNSPECIFIED 04/09/[address] active 5 AGE-RELATED OSTEOPOROSIS WITHOUT CURRENT PATHOLOGICAL FRACTURE 04/07/[address] active 6 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 04/07/[address] active 7 CHRONIC PAIN SYNDROME 04/07/[address] active 8 CHRONIC RESPIRATORY FAILURE WITH HYPOXIA 04/07/[address] active 9 DIFFICULTY IN WALKING, NOT ELSEWHERE CLASSIFIED 04/07/[address] active 10 DYSPHAGIA, ORAL PHASE 04/07/[address] active 11 ENCOUNTER FOR OTHER ORTHOPEDIC AFTERCARE 04/07/[address] active 12 ESSENTIAL (PRIMARY) HYPERTENSION 04/07/[address] active 13 EXOCRINE PANCREATIC INSUFFICIENCY 04/07/[address] active 14 FRACTURE OF UNSPECIFIED PART OF NECK OF LEFT FEMUR, SUBSEQUENT ENCOUNTER FOR CLOSED FRACTURE WITH ROUTINE HEALING 04/07/[address] active 15 GASTRO-ESOPHAGEAL REFLUX DISEASE WITH ESOPHAGITIS, WITHOUT BLEEDING 04/07/[address] active 16 HISTORY OF FALLING 04/07/[address] active 17 HYPO-OSMOLALITY AND HYPONATREMIA 04/07/[address] active 18 INSOMNIA, UNSPECIFIED 04/07/[address] active 19 IRON DEFICIENCY ANEMIA, UNSPECIFIED 04/07/[address] active 20 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 ANALGESIC 04/07/[address] active 21 LYMPHEDEMA, NOT ELSEWHERE CLASSIFIED 04/07/[address] active 22 MIXED HYPERLIPIDEMIA 04/07/[address] active 23 NEED FOR ASSISTANCE WITH PERSONAL CARE 04/07/[address] active 24 PAROXYSMAL ATRIAL FIBRILLATION 04/07/[address] active 25 PERIPHERAL VASCULAR DISEASE, UNSPECIFIED 04/07/[address] active 26 PERSONAL HISTORY OF COLONIC POLYPS 04/07/[address] active 27 PERSONAL HISTORY OF TRANSIENT ISCHEMIC ATTACK (TIA), AND CEREBRAL INFARCTION WITHOUT RESIDUAL DEFICITS 04/07/[address] active 28 AGE-RELATED OSTEOPOROSIS WITHOUT CURRENT PATHOLOGICAL FRACTURE 09/13/20 22 04/09/[address] completed 29 CHRONIC DIASTOLIC (CONGESTIVE) HEART FAILURE 09/13/20 22 04/09/[address] completed 30 CHRONIC KIDNEY DISEASE, UNSPECIFIED 09/13/20 22 04/09/[address] completed 31 CHRONIC OBSTRUCTIVE PULMONARY DISEASE, UNSPECIFIED 09/13/20 22 04/09/[address] completed 32 CHRONIC PAIN SYNDROME 09/13/20 22 04/09/[address] completed 33 CHRONIC RESPIRATORY FAILURE WITH HYPOXIA 09/13/20 22 04/09/[address] completed 34 DEPENDENCE ON SUPPLEMENTAL OXYGEN 09/13/20 22 04/09/[address] completed 35 DEPRESSION, UNSPECIFIED 09/13/20 22 04/09/[address] completed 36 DIFFICULTY IN WALKING, NOT ELSEWHERE CLASSIFIED 09/13/20 22 04/09/[address] completed 37 FIBROMYALGIA 09/13/20 22 04/09/[address] completed 38 GASTRO-ESOPHAGEAL REFLUX DISEASE WITHOUT ESOPHAGITIS 09/13/20 22 04/09/[address] completed 39 HISTORY OF FALLING 09/13/20 22 04/09/[address] completed 40 INSOMNIA DUE TO MEDICAL CONDITION 09/13/20 22 04/09/[address] completed 41 LOW BACK PAIN, UNSPECIFIED 09/13/20 22 04/09/[address] completed 42 MIXED HYPERLIPIDEMIA 09/13/20 22 04/09/[address] completed 43 MODERATE PROTEIN-CALORIE MALNUTRITION 09/13/2004/09/[address] completed 44 MUSCLE WEAKNESS (GENERALIZED) 09/13/2004/09/[address] completed 45 NEED FOR ASSISTANCE WITH PERSONAL CARE 09/13/2004/09/[address] completed 46 OTHER IRON DEFICIENCY ANEMIAS 09/13/2004/09/[address] completed 47 OTHER SPECIFIED DISEASES OF PANCREAS 09/13/2004/09/[address] completed 48 OTHER SPECIFIED DISORDERS OF BONE DENSITY AND STRUCTURE, UNSPECIFIED SITE 09/13/2004/09/[address] completed 49 PAROXYSMAL ATRIAL FIBRILLATION 09/13/20 22 04/09/[address] completed 50 PERIPHERAL VASCULAR DISEASE, UNSPECIFIED 09/13/2004/09/[address] completed 51 PERSONAL HISTORY OF TRANSIENT ISCHEMIC ATTACK (TIA), AND CEREBRAL INFARCTION WITHOUT RESIDUAL DEFICITS 09/13/20 22 04/09/[address] completed 52 PRIMARY GENERALIZED (OSTEO)ARTHRITIS 09/13/20 22 04/09/[address] completed 53 RHABDOMYOLYSIS 09/13/2004/09/[address] completed 54 TYPE 2 DIABETES MELLITUS WITH DIABETIC POLYNEUROPATHY 09/13/20 22 04/09/[address] completed 55 UNSPECIFIED OSTEOARTHRITIS, UNSPECIFIED SITE 09/13/20 22 09/13/[address] completed 56 VITAMIN D DEFICIENCY, UNSPECIFIED 09/13/20 22 04/09/[address] completed Reason for Referral No Reasons for Referral Entered Social History Social History Observation Description Start Date End Date Code Code System Current Smoking Status Tobacco smoking consumption unknown 717120815 SNOMED CT Sex Assigned At Female 1945 31721-3 [facility] Vital Signs Code Code System Vitals Name Values and Units Timing Information 95639-4 [facility] Pain Level Value=0.0 06/03/2023 39448-8 [facility] Weight Ctdzn=526.8 Units=Lbs 9279-1 [facility] Respiratory Rate Value=18.0 Units=/m in 04/17/2023 8462-4 [facility] Blood Pressure-Diastolic Value=68 Un its=mmHg 04/17/2023 8480-6 [facility] Blood Pressure-Systolic Zhcmf=483 Un its=mmHg 04/17/2023 8310-5 [facility] Body Temperature Value=97.5 Units= F 04/17/2023 8867-4 [facility] Heart rate Value=76.0 Units=/min 73134-7 [facility] O2 % BldC Oximetry Value=95.0 Units= % 04/17/2023 8302-2 [facility] Height Value=51.0 Units=Inches 04/08/2023
== END 2025-03-10 16:36 | disposition home or self-care (01) ==
PROVIDERS: Emergency Provider Registered Nurse; PCP Internal Medicine Geriatric Medicine
DX: S80.862A Insect bite (nonvenomous), left lower leg, initial encounter (principal); W57.XXXA Bitten or stung by nonvenomous insect and other nonvenomous arthropods, initial encounter; S81.802A Unspecified open wound, left lower leg, initial encounter; X58.XXXA Exposure to other specified factors, initial encounter; Z87.891 Personal history of nicotine dependence; J44.9 Chronic obstructive pulmonary disease, unspecified; E11.42 Type 2 diabetes mellitus with diabetic polyneuropathy; Z79.84 Long term (current) use of oral hypoglycemic drugs; I10 Essential (primary) hypertension; M19.90 Unspecified osteoarthritis, unspecified site; K21.9 Gastro-esophageal reflux disease without esophagitis; M79.7 Fibromyalgia; M85.80 Other specified disorders of bone density and structure, unspecified site
CPT/HCPCS: 99213; G0463